=== PATIENT | male | born 1990 | race Caucasian/White ===

== ENCOUNTER 2023-03-04 13:04 | Outpatient (REF) | payer OTHER, SELFPAY ==
--- NOTE | 2023-03-04 14:19 | ECG_ITS ---
Test Reason : F33.2 Blood Pressure : / mmHG Vent. Rate : 125 BPM Atrial Rate : 125 BPM P-R Int : 156 ms QRS Dur : 098 ms QT Int : 306 ms P-R-T Axes : 036 023 034 degrees QTc Int : 441 ms Sinus tachycardia Otherwise normal ECG No previous ECGs available Referred By: Suleman Julien Electronically Signed By:Filiberto Richard
[2023-03-04 14:30] LABS: MANUAL DIFF FLAG NO
[2023-03-04 14:35] LABS: Basophils Absolute Auto 0.1 X10*3/uL (0.0-0.2); Eosinophils Absolute Auto 0.3 X10*3/uL (0.0-0.4); Eosinophils Percent Auto 2.5 % (0-4); Hematocrit 44.8 % (42.0-52.0); Hemoglobin 15.1 g/dl (14.0-18.0); Imm Gran Abs Auto 0.17 X10*3/uL (0.00-0.03); Imm Gran Pct Auto 1.6 % (0.0-0.4); Lymphocytes Absolute Auto 2.2 X10*3/uL (1.2-4.9); Lymphocytes Percent Auto 20.8 % (20-40); Mean Corpuscular HGB Conc 33.7 g/dl (31.0-36.0); Mean Corpuscular Hemoglobin 32.5 pg (27.0-33.0); Mean Corpuscular Volume 96.3 fL (80.0-98.0); Mean Platelet Volume 10.1 fL (9.4-12.4); Monocytes Absolute Auto 0.9 X10*3/uL (0.1-1.2); Monocytes Percent Auto 8.3 % (2-11); Neutrophils Percent Auto 65.8 % (45-73); Platelet Count 252 X10*3/uL (160-400); Red Blood Count 4.65 X10*6/uL (4.60-5.80); Red Cell Distribution Width 12.6 % (11.0-16.0); White Blood Count 10.7 X10*3/uL (4.8-10.8)
[2023-03-04 15:35] LABS: Alanine Aminotransferase 32 U/L (0-40); Albumin Level 4.7 g/dL (3.5-5.0); Alkaline Phosphatase 76 U/L (39-117); Anion Gap 15 (12-20); Aspartate Amino Transferase 19 U/L (5-37); Bilirubin Total 0.3 mg/dL (0.0-1.0); Blood Urea Nitrogen 11 mg/dL (9-16); Calcium 9.9 mg/dL (8.4-10.2); Carbon Dioxide 24 mmol/L (22-29); Chloride 105 mmol/L (96-108); Estimated Glomerular Filt Rate > 60; Glucose Random 95 mg/dL (60-115); Potassium 4.3 mmol/L (3.3-5.1); Sodium 140 mmol/L (135-145); Total Protein 7.7 g/dL (6.5-8.0)
[2023-03-04 15:53] LABS: TSH reflex Free T4 1.98 uIU/mL (0.32-4.0)
[2023-03-04 15:57] LABS: Vitamin B12 394 pg/mL (200-900)
[2023-03-04 16:49] LABS: Folate 3.7 ng/mL (> or = 4.0)
== END 2023-03-04 13:05 | disposition home or self-care (01) ==
LOC: HO.LAB 13:04
PROVIDERS: PCP Family Medicine; Referring Provider Clinical Nurse Specialist Psychiatric/Mental Health; Visit Provider Psychiatry & Neurology Psychiatry
DX: Z01.818 Encounter for other preprocedural examination (principal); F33.2 Major depressive disorder, recurrent severe without psychotic features; F90.9 Attention-deficit hyperactivity disorder, unspecified type; S69.91XA Unspecified injury of right wrist, hand and finger(s), initial encounter
CPT/HCPCS: 36415; 80053; 82607; 82746; 84443; 85025; 93005

== ENCOUNTER 2023-03-04 13:04 | Outpatient (AMB) | payer OTHER, SELFPAY ==
--- NOTE | 2023-03-05 00:20 | A.OFFPSYCH_ITS ---
Intake Intake Visit Reasons: Depression Allergies No Known Allergies Allergy (Verified 03/04/23 13:50) Medication List - Last Reconciled 03/06/23 by Servando Del Rosario MD brexpiprazole (Rexulti) 3 mg PO QAM dextroamphetamine-amphetamine 20 mg 1 tab PO QPM lisdexamfetamine (Vyvanse) 70 mg PO DAILY lorazepam 1 mg PO BID PRN nortriptyline 100 mg PO BEDTIME zolpidem 10 mg PO BEDTIME PRN HPI- Psychiatric Chief Complaint: Depression Intake Note: Referred for ECT consult by Suleman Julien nurse practitioner HPI Narrative: The patient's 8th 32-year-old male referred by Suleman Julien nurse practitioner who has a long history of severe depression reported psychotic episodes who feels increasingly hopeless helpless with thoughts that he would be better off . The patient has been not treated for depression off and on since adolescents he has been much worse for the past few years and especially since his divorce and feeling betrayed by his ex-. He is on social security disability and is living with his parents. He is significantly restricted his activities is socially isolated. Patient has felt worse since he and his 16-year-old daughter had some kind of falling out after the divorce since then his daughter has not been wanting to have significant contact with him. They have been quite close previously. The patient has had a number of medication trials and has been treated for recurrent depression with psychotic features and ADHD. He has had a number of setbacks over the years that contribute to his current state besides his divorce and feeling of betrayal. 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 The patient currently has been on combination of nortriptyline, Vyvanse to 130 mg with an Adderall 20 mg in late afternoon Rexulti 3 mg daily lorazepam 1 mg daily p.r.n.. He has had trials of citalopram 40 mg Lexapro 20 mg fluoxetine 60 mg Cymbalta 60 mg Abilify 5 mg Wellbutrin 300 mg Seroquel 50 mg Effexor XR 150 mg BuSpar 20 b.i.d. and auvelity which were ineffective or had side effects. Patient had a partial response to TMS. Has had chronic depression chronic thoughts that he would be better off but states he would act on this and feels committed to his daughter Past Psychiatric History: See above no psychiatric hospitalization Mental Status Exam Mental Status Exam Narrative: Patient cooperative has a rey Patient Appearance: Appropriate Patient Orientation: Person, Place, Time and Situation Level of Consciousness: Awake and Appropriate Patient Behavior: Appropriate Mood Description: Constricted, Depressed and Blunted Affect Description: Appropriate, Constricted and Depressed Patient Cognition Impaired: Yes Ability to Follow Directions: Good Speech Pattern: Clear Memory Description: Working Impaired Hallucinations: None Delusions: Not Present Thought Process: Intact and Goal Oriented Thought Content: positive for Goal Oriented, positive for Preoccupation, positive for Suicidal Ideation (Denies intent he is asking for help) and negative for Homicidal Ideation Depressive Symptoms: Increased Anxiety, Increased Irritability, Hopelessness, Increased Fatigue, Thoughts of /Suicide, Low Self Esteem, Loss of Energy and Difficulty Concentrating Judgement and Insight: Patient is asking for help denies active thoughts of self-harm Assessment and Plan Assessment & Plan (1) Depression, major, severe recurrence: Status: Acute Code(s): F33.2 - Major depressive disorder, recurrent severe without psychotic features (2) ADHD: Status: Acute Code(s): F90.9 - Attention-deficit hyperactivity disorder, unspecified type (3) Injury of right hand: Status: Acute Code(s): S69.91XA - Unspecified injury of right wrist, hand and finger(s), initial encounter Plan Patient certainly meets criteria for ECT severe depression elevated PHQ-9 medical issues right-handed Denzel cervical disc disease severe melancholic type depression limited interest in engagement with world. Would benefit from behavioral activation motivational interviewing and would need to engage in active depression rehabilitation process if ECT was effective at treating the biology and hopefully help in patient be more motivated less and I future orie nted. He denies active self-harm he is chronically suicidal at this point with thoughts that he might be better off but feels he is staying alive to be apparent to his daughter which is a major motivator for him. Risks benefits alternatives reviewed might benefit from a partial hospital type program post ECT unclear effect from high-dose stimulants and also if patient has chronic marijuana use is having an impact on his adjustment and behavior. Case reviewed with the in lon Julien nurse practitioner patient given literature handouts this point wishes to go forward check a CBC Chem profile EKG get medical evaluation pre ECT Orders: Orders Vitamin B12 and Folate 03/04/23 F33.2 - Major depressive disorder, recurrent severe without psychotic features, Z01.818 - Encounter for other preprocedural examination Comprehensive Met. Panel 03/04/23 F33.2 - Major depressive disorder, recurrent severe without psychotic features, Z01.818 - Encounter for other preprocedural examination TSH reflex Free T4 03/04/23 F33.2 - Major depressive disorder, recurrent severe without psychotic features, Z01.818 - Encounter for other preprocedural examination ECG 12 lead EKG 03/04/23 F33.2 - Major depressive disorder, recurrent severe without psychotic features, Z01.818 - Encounter for other preprocedural examination Complete Blood Count Auto Diff 03/04/23 F33.2 - Major depressive disorder, recurrent severe without psychotic features, Z01.818 - Encounter for other preprocedural examination Counseling and coordination of Care Details: I spent [] minutes reviewing the record, seeing the patient and documenting in the medical record. Counseling provided to the patient/caregiver as outlined below. Addressed patient/caregiver concerns regarding current medication regime including effective adherence. Addressed patient/caregiver concerns regarding diagnosis and prognosis including accuracy of diagnosis, prognosis over time, impact of diagnosis. Addressed patient/caregiver concerns regarding impact of recent stressors. 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 Was he is currently has a 16-year-old daughter and is on social security disability he does know his biological mother Substance History: History of alcoholism has been sober he is a regular user of medical marijuana Past history of opiate use was on Suboxone Trauma History: History of physical and emotional trauma Coding Level of Care Code New Pt Level 4 (93117) Diagnoses Depression, major, severe recurrence F33.2 ADHD F90.9 Injury of right hand S69.91XA
== END 2023-03-04 14:20 | disposition home or self-care (01) ==
LOC: HO.HOP 13:04
PROVIDERS: PCP Family Medicine; Referring Provider Clinical Nurse Specialist Psychiatric/Mental Health; Visit Provider Psychiatry & Neurology Psychiatry
DX: F33.2 Major depressive disorder, recurrent severe without psychotic features (principal); F90.9 Attention-deficit hyperactivity disorder, unspecified type; S69.91XA Unspecified injury of right wrist, hand and finger(s), initial encounter
CPT/HCPCS: 99204

== ENCOUNTER → 2023-03-04 14:19 | Outpatient (BNV) | payer OTHER, SELFPAY | PROVIDERS: PCP Family Medicine; Referring Provider Clinical Nurse Specialist Psychiatric/Mental Health; Visit Provider Internal Medicine Cardiovascular Disease | DX: R00.0 Tachycardia, unspecified (principal) | CPT/HCPCS: 93010 ==

== ENCOUNTER 2023-03-15 06:14 | Day surgery (SDC) | payer OTHER, SELFPAY ==
[2023-03-15] VITALS (8 sets, daily range): BP systolic 107–160; BP diastolic 65–97; PULSE 100–108; RESP 12–18; TEMP 36.1–36.6; O2SAT 97–99; BMI 33.4
--- NOTE | 2023-03-15 06:55 | P.CONAN_ITS ---
[facility] Active Problems Active Problems: All Active Problems (Updated 03/06/23 @ 17:34 by Servando Del Rosario MD) ADHD (Acute) Injury of right hand (Acute) Pre-op evaluation (Acute) Depression, major, severe recurrence (Acute) Past Medical History Medical History (Updated 03/06/23 @ 17:34 by Servando Del Rosario MD) ADHD Cervical radiculopathy at C7 Injury of right hand Family History Family history of problems with anesthesia: No Surgical History History of Problems with Anesthesia: No Social History Social History Patient Tobacco Use Status: Current everyday Tobacco user Tobacco use type: Cigarette Smoked in Last 30 Days: Yes Patient Interested in Nicotine Replacement: No Have you been hit, kicked, punched, or otherwise hurt by someone within the past year? If so, by whom?: No Are you DNR?: No Advance Directives: No Advance Directives Information Provided: Yes Recently lost weight without trying: No Poor oral hygiene: No Meds Allergies Allergy/AdvReac Type Severity Reaction Status Date / Time No Known Allergies Allergy Verified 03/04/23 13:50 Home Medications Medication Instructions Recorded Confirmed Last Taken Type brexpiprazole 3 mg tablet (Rexulti) 3 mg PO QAM 03/06/23 03/06/23 Unknown History dextroamphetamine-amphetamine 20 1 tab PO QPM 03/06/23 03/06/23 Unknown History mg tablet lisdexamfetamine 70 mg capsule 70 mg PO DAILY 03/06/23 03/06/23 Unknown History (Vyvanse) lorazepam 1 mg tablet 1 mg PO BID PRN 03/06/23 03/06/23 Unknown History nortriptyline 50 mg capsule 100 mg PO BEDTIME 03/06/23 03/06/23 Unknown History zolpidem 10 mg tablet 10 mg PO BEDTIME PRN 03/06/23 03/06/23 Unknown History Exam Exam Date and Time: March 15, 2023 0655 Height,Weight and Vital Signs: Height 5 ft 8 in Weight 99.79 kg Last Vital Signs Temp 97.0 F 03/15/23 06:31 Pulse 104 H 03/15/23 06:31 Resp 18 03/15/23 06:31 BP 123/79 03/15/23 06:31 Pulse Ox 97 03/15/23 06:31 O2 Del Method Room Air 03/15/23 06:31 Airway Mallampati Class: III (missing one, denies anything loose) TM Dist: >3cm Neck ROM: Full Heart: rrr Lungs: cta Assessment and Plan Assessment Anesthesia Assessment: Anesthesia Plan Discussed and Chart Reviewed Final Anesthetic Review Family History of Problems with Anesthesia: No History of Problems with Anesthesia: No NPO: Yes ASA Class: III Final Preanesthetic Review: No Changes in Pt Med Stat, Meds/Allgs Chart Reviewed and Consent Obtained/Reviewed Patient Risk: Intermediate Procedure Risk: Intermediate Anesthetic Plan Anesthetic Plan: GA Disposition: Standard PACU
--- NOTE | 2023-03-15 07:45 | MHC.SHP ---
Pre-Procedural Eval Section A Date of Service: 03/15/23 The patient is an INPATIENT: No Changes since office visit: Yes Patient answered all questions; No Cold of Flu in the past 2 weeks, No New Medical Problems and No Changes in Medication The History & Physical has been completed within 30 days and I have reviewed it.: Yes Section B Chief Complaint: Major depressive disorder, recurrent, severe with Allergies: Allergies Allergy/AdvReac Type Severity Reaction Status Date / Time No Known Allergies Allergy Verified 03/04/23 13:50 Plan I have reviewed the history and physical and performed a pertinent physical examination on my patient. No changes have occurred unless specified. Time Spent With Patient Time: Total time managing care of this patient today ____ minutes.
--- NOTE | 2023-03-15 17:46 | HO.ECTPROC ---
ECT Procedure Note Diagnosis/Treatment Date of Service: 03/15/23 Diagnosis: Major Depressive Disorder Current Treatment Number: 1 Treatment: Series Interval Clinical Notes: See initial eval for full information patient able to give informed consent for initially ECT medical evaluation reviewed no new medical complaints by the patient today Time: Total time managing care of this patient today ____ minutes. ECT Settings Device: THYMATRON DGx Electrode Placement: Right Unilateral Program/Pulse Width: 0.50 Energy Percent: 100 Seizure Duration By EEG (in seconds): 17 Medications Administration General Anesthetic: Etomidate (16) Muscle Relaxant: Succinylcholine (100) Ancillary Medications Analgesics: Torodol - Pre ECT Anti-emetics: Zofran - Pre ECT Miscillaneous Medications: Propofol (30) Airway Management Airway Management: Bag Mask Ventilation Treatment Recommendations Electrode Placement: Bifrontal Notes: Consider change to bifrontal increased succinylcholine 120 mg lower etomidate a to 14 mg as tolerate Pt Tolerated Procedure w/o Issue: Yes
== END 2023-03-15 09:25 | disposition home or self-care (01) ==
PROVIDERS: PCP Family Medicine; Visit Provider Psychiatry & Neurology Psychiatry
PROC: (CPT 90870; principal; 2023-03-15 08:00)
DX: F33.3 Major depressive disorder, recurrent, severe with psychotic symptoms (principal); F90.2 Attention-deficit hyperactivity disorder, combined type; E66.9 Obesity, unspecified; Z79.899 Other long term (current) drug therapy; F17.210 Nicotine dependence, cigarettes, uncomplicated; F41.1 Generalized anxiety disorder
CPT/HCPCS: 90870; J0330; J1885; J2405

== ENCOUNTER → 2023-03-15 06:14 | Outpatient (BNV) | payer OTHER, SELFPAY | PROVIDERS: PCP Family Medicine; Visit Provider Psychiatry & Neurology Psychiatry | DX: F33.3 Major depressive disorder, recurrent, severe with psychotic symptoms (principal) | CPT/HCPCS: 90870 ==

== ENCOUNTER 2023-03-18 06:00 | Day surgery (SDC) | payer OTHER, SELFPAY ==
[2023-03-18] VITALS (8 sets, daily range): BP systolic 116–168; BP diastolic 82–99; PULSE 93–116; RESP 14–20; TEMP 36.1–36.2; O2SAT 92–97; BMI 33.4
--- NOTE | 2023-03-18 06:41 | HO.ANESPROP2 ---
[facility] Active Problems Active Problems: All Active Problems (Updated 03/06/23 @ 17:34 by Servando Del Rosario MD) ADHD (Acute) Injury of right hand (Acute) Pre-op evaluation (Acute) Depression, major, severe recurrence (Acute) Past Medical History Medical History (Updated 03/06/23 @ 17:34 by Servando Del Rosario MD) ADHD Cervical radiculopathy at C7 Injury of right hand Family History Family history of problems with anesthesia: No Surgical History History of Problems with Anesthesia: No Social History Social History Patient Tobacco Use Status: Current everyday Tobacco user Tobacco use type: Cigarette Advance Directives: No Advance Directives Information Provided: Yes Meds Allergies Allergy/AdvReac Type Severity Reaction Status Date / Time No Known Allergies Allergy Verified 03/04/23 13:50 Home Medications Medication Instructions Recorded Confirmed Last Taken Type brexpiprazole 3 mg tablet (Rexulti) 3 mg PO QAM 03/06/23 03/06/23 Unknown History dextroamphetamine-amphetamine 20 1 tab PO QPM 03/06/23 03/06/23 Unknown History mg tablet lisdexamfetamine 70 mg capsule 70 mg PO DAILY 03/06/23 03/06/23 Unknown History (Vyvanse) lorazepam 1 mg tablet 1 mg PO BID PRN 03/06/23 03/06/23 Unknown History nortriptyline 50 mg capsule 100 mg PO BEDTIME 03/06/23 03/06/23 Unknown History zolpidem 10 mg tablet 10 mg PO BEDTIME PRN 03/06/23 03/06/23 Unknown History Exam Exam Date and Time: March 18, 2023 0641 Height,Weight and Vital Signs: Height 5 ft 8 in Weight 99.79 kg Last Vital Signs Temp 97 F 03/18/23 06:17 Pulse 95 03/18/23 06:17 Resp 16 03/18/23 06:17 BP 137/98 H 03/18/23 06:17 Pulse Ox 97 03/18/23 06:17 O2 Del Method Room Air 03/18/23 06:17 Airway Mallampati Class: II TM Dist: >3cm Neck ROM: Full Heart: rrr Lungs: cta Assessment and Plan Assessment Anesthesia Assessment: Anesthesia Plan Discussed and Chart Reviewed Final Anesthetic Review Family History of Problems with Anesthesia: No History of Problems with Anesthesia: No NPO: Yes ASA Class: III Final Preanesthetic Review: No Changes in Pt Med Stat, Meds/Allgs Chart Reviewed and Consent Obtained/Reviewed Patient Risk: Intermediate Procedure Risk: Intermediate Anesthetic Plan Anesthetic Plan: GA Disposition: Standard PACU
--- NOTE | 2023-03-18 07:16 | MHC.SHP ---
Pre-Procedural Eval Section A Date of Service: 03/18/23 The patient is an INPATIENT: No Changes since office visit: Yes Patient answered all questions; No Cold of Flu in the past 2 weeks, No New Medical Problems and No Changes in Medication The History & Physical has been completed within 30 days and I have reviewed it.: Yes Section B Chief Complaint: Major depressive disorder, recurrent, severe with Allergies: Allergies Allergy/AdvReac Type Severity Reaction Status Date / Time No Known Allergies Allergy Verified 03/04/23 13:50 Plan I have reviewed the history and physical and performed a pertinent physical examination on my patient. No changes have occurred unless specified. Time Spent With Patient Time: Total time managing care of this patient today ____ minutes.
--- NOTE | 2023-03-18 07:17 | HO.ECTPROC ---
ECT Procedure Note Diagnosis/Treatment Date of Service: 03/18/23 Diagnosis: Major Depressive Disorder Current Treatment Number: 2 Treatment: Series Interval Clinical Notes: tolerated first tx engaged alert Time: Total time managing care of this patient today ____ minutes. ECT Settings Device: THYMATRON DGx Electrode Placement: Right Unilateral Program/Pulse Width: 0.50 Energy Percent: 100 Seizure Duration By EEG (in seconds): 55 Medications Administration General Anesthetic: Etomidate (16) Muscle Relaxant: Succinylcholine (120) Ancillary Medications Analgesics: Torodol - Pre ECT Anti-emetics: Zofran - Pre ECT Miscillaneous Medications: Propofol (30) Airway Management Airway Management: Bag Mask Ventilation Treatment Recommendations Electrode Placement: Right Unilateral Program/Pulse Width: 0.50 Pt Tolerated Procedure w/o Issue: Yes
[2023-03-18] MEDS: ondansetron HCL 4 MG/2 ML VIAL IVPUSH (08:50)
== END 2023-03-18 08:57 | disposition home or self-care (01) ==
PROVIDERS: PCP Family Medicine; Visit Provider Psychiatry & Neurology Psychiatry
PROC: (CPT 90870; principal; 2023-03-18 07:30)
DX: F33.2 Major depressive disorder, recurrent severe without psychotic features (principal); F41.1 Generalized anxiety disorder; E66.9 Obesity, unspecified; Z79.899 Other long term (current) drug therapy; F17.210 Nicotine dependence, cigarettes, uncomplicated
CPT/HCPCS: 90870; J0330; J1885; J2405

== ENCOUNTER → 2023-03-18 06:00 | Outpatient (BNV) | payer OTHER, SELFPAY | PROVIDERS: PCP Family Medicine; Visit Provider Psychiatry & Neurology Psychiatry | DX: F33.3 Major depressive disorder, recurrent, severe with psychotic symptoms (principal) | CPT/HCPCS: 90870 ==

== ENCOUNTER 2023-03-20 06:05 | Day surgery (SDC) | payer OTHER, SELFPAY ==
[2023-03-20] VITALS (7 sets, daily range): BP systolic 125–134; BP diastolic 82–92; PULSE 93–107; RESP 16–23; TEMP 36.2; O2SAT 91–99; BMI 30.4
--- NOTE | 2023-03-20 06:37 | HO.ANESPROP2 ---
[facility] Active Problems Active Problems: All Active Problems (Updated 03/06/23 @ 17:34 by Servando Del Rosario MD) ADHD (Acute) Injury of right hand (Acute) Pre-op evaluation (Acute) Depression, major, severe recurrence (Acute) Past Medical History Medical History (Updated 03/06/23 @ 17:34 by Servando Del Rosario MD) ADHD Cervical radiculopathy at C7 Injury of right hand Family History Family history of problems with anesthesia: No Surgical History History of Problems with Anesthesia: No Social History Social History Patient Tobacco Use Status: Current everyday Tobacco user Tobacco use type: Cigarette Advance Directives: No Advance Directives Information Provided: Yes Meds Allergies Allergy/AdvReac Type Severity Reaction Status Date / Time No Known Allergies Allergy Verified 03/04/23 13:50 Active Medications: Current Medications Lactated Ringer's (Lr) 1,000 mls @ 50 mls/hr IVCONT .Q20H FANNY Home Medications Medication Instructions Recorded Confirmed Last Taken Type brexpiprazole 3 mg tablet (Rexulti) 3 mg PO QAM 03/06/23 03/06/23 Unknown History dextroamphetamine-amphetamine 20 1 tab PO QPM 03/06/23 03/06/23 Unknown History mg tablet lisdexamfetamine 70 mg capsule 70 mg PO DAILY 03/06/23 03/06/23 Unknown History (Vyvanse) lorazepam 1 mg tablet 1 mg PO BID PRN 03/06/23 03/06/23 Unknown History nortriptyline 50 mg capsule 100 mg PO BEDTIME 03/06/23 03/06/23 Unknown History zolpidem 10 mg tablet 10 mg PO BEDTIME PRN 03/06/23 03/06/23 Unknown History Exam Exam Date and Time: March 20, 2023 0637 Height,Weight and Vital Signs: Height 5 ft 8 in Weight 90.718 kg Last Vital Signs Temp 97.2 F 03/20/23 06:20 Pulse 93 03/20/23 06:20 Resp 16 03/20/23 06:20 BP 128/90 H 03/20/23 06:20 Pulse Ox 97 03/20/23 06:20 O2 Del Method Room Air 03/20/23 06:20 Airway Mallampati Class: II TM Dist: >3cm Neck ROM: Full Heart: rrr Lungs: cta Assessment and Plan Assessment Anesthesia Assessment: Anesthesia Plan Discussed and Chart Reviewed Final Anesthetic Review Family History of Problems with Anesthesia: No History of Problems with Anesthesia: No ASA Class: III Final Preanesthetic Review: No Changes in Pt Med Stat, Meds/Allgs Chart Reviewed and Consent Obtained/Reviewed Patient Risk: Intermediate Procedure Risk: Intermediate Anesthetic Plan Anesthetic Plan: GA Disposition: Standard PACU
--- NOTE | 2023-03-20 07:02 | MHC.SHP ---
Pre-Procedural Eval Section A Date of Service: 03/20/23 The patient is an INPATIENT: No Changes since office visit: No Cold of Flu in the past 2 weeks, No New Medical Problems, No Changes in Medication and No Patient answered all questions The History & Physical has been completed within 30 days and I have reviewed it.: Yes Section B Chief Complaint: Major depressive disorder, recurrent, severe with Allergies: Allergies Allergy/AdvReac Type Severity Reaction Status Date / Time No Known Allergies Allergy Verified 03/04/23 13:50 Plan I have reviewed the history and physical and performed a pertinent physical examination on my patient. No changes have occurred unless specified. Time Spent With Patient Time: Total time managing care of this patient today ____ minutes.
--- NOTE | 2023-03-20 07:21 | HO.ECTPROC ---
ECT Procedure Note Diagnosis/Treatment Date of Service: 03/20/23 Diagnosis: Major Depressive Disorder Previous ECT Date: 03/18/23 Current Treatment Number: 3 Treatment: Series Interval Clinical Notes: The patient reported improvement of his level of energy but still dysphoric. He reported headaches and some muscle pain after the previous procedure. Time: Total time managing care of this patient today _30___ minutes. ECT Settings Device: THYMATRON DGx Electrode Placement: Right Unilateral Program/Pulse Width: 0.50 Energy Percent: 100 Seizure Duration By EEG (in seconds): 54 By Motor Observation (in seconds): 31 Medications Administration General Anesthetic: Etomidate (16) Muscle Relaxant: Succinylcholine (120) Ancillary Medications Analgesics: Torodol - Pre ECT (30 mg (double dose)) Anti-emetics: Zofran - Pre ECT Miscillaneous Medications: Propofol Airway Management Airway Management: Bag Mask Ventilation Treatment Recommendations No Changes Recommended: No change Pt Tolerated Procedure w/o Issue: Yes
[2023-03-20] MEDS: Acetaminophen 325 MG TABLET 650 MG PO (08:14)
== END 2023-03-20 08:50 | disposition home or self-care (01) ==
PROVIDERS: PCP Family Medicine; Visit Provider Psychiatry & Neurology Psychiatry
PROC: (CPT 90870; principal; 2023-03-20 07:30)
DX: F33.2 Major depressive disorder, recurrent severe without psychotic features (principal); F90.9 Attention-deficit hyperactivity disorder, unspecified type; F17.210 Nicotine dependence, cigarettes, uncomplicated; Z79.899 Other long term (current) drug therapy
CPT/HCPCS: 90870; J0330; J1885; J2405

== ENCOUNTER → 2023-03-20 06:05 | Outpatient (BNV) | payer OTHER, SELFPAY | PROVIDERS: PCP Family Medicine; Visit Provider Psychiatry & Neurology Psychiatry | DX: F33.3 Major depressive disorder, recurrent, severe with psychotic symptoms (principal) | CPT/HCPCS: 90870 ==

== ENCOUNTER 2023-03-22 06:08 | Day surgery (SDC) | payer OTHER, SELFPAY ==
[2023-03-22] VITALS (8 sets, daily range): BP systolic 117–134; BP diastolic 82–95; PULSE 97–106; RESP 14–20; TEMP 36.1–36.7; O2SAT 94–98; BMI 30.4
--- NOTE | 2023-03-22 06:44 | P.CONAN_ITS ---
[facility] Active Problems Active Problems: All Active Problems (Updated 03/06/23 @ 17:34 by Servando Del Rosario MD) ADHD (Acute) Injury of right hand (Acute) Pre-op evaluation (Acute) Depression, major, severe recurrence (Acute) Past Medical History Medical History (Updated 03/06/23 @ 17:34 by Servando Del Rosario MD) ADHD Cervical radiculopathy at C7 Injury of right hand Family History Family history of problems with anesthesia: No Surgical History History of Problems with Anesthesia: No Social History Social History Patient Tobacco Use Status: Current everyday Tobacco user Tobacco use type: Cigarette Advance Directives: No Advance Directives Information Provided: Yes Meds Allergies Allergy/AdvReac Type Severity Reaction Status Date / Time No Known Allergies Allergy Verified 03/04/23 13:50 Active Medications: Current Medications Lactated Ringer's (Lr) 1,000 mls @ 50 mls/hr IVCONT .Q20H FANNY Home Medications Medication Instructions Recorded Confirmed Last Taken Type brexpiprazole 3 mg tablet (Rexulti) 3 mg PO QAM 03/06/23 03/06/23 Unknown History dextroamphetamine-amphetamine 20 1 tab PO QPM 03/06/23 03/06/23 Unknown History mg tablet lisdexamfetamine 70 mg capsule 70 mg PO DAILY 03/06/23 03/06/23 Unknown History (Vyvanse) lorazepam 1 mg tablet 1 mg PO BID PRN 03/06/23 03/06/23 Unknown History nortriptyline 50 mg capsule 100 mg PO BEDTIME 03/06/23 03/06/23 Unknown History zolpidem 10 mg tablet 10 mg PO BEDTIME PRN 03/06/23 03/06/23 Unknown History Exam Exam Date and Time: March 22, 2023 0644 Height,Weight and Vital Signs: Height 5 ft 8 in Weight 90.718 kg Last Vital Signs Temp 97.7 F 03/22/23 06:21 Pulse 97 03/22/23 06:21 Resp 16 03/22/23 06:21 BP 117/82 03/22/23 06:21 Pulse Ox 95 03/22/23 06:21 O2 Del Method Room Air 03/22/23 06:21 Airway Mallampati Class: II TM Dist: >3cm Neck ROM: Full Heart: rrr Lungs: cta Assessment and Plan Assessment Anesthesia Assessment: Anesthesia Plan Discussed and Chart Reviewed Final Anesthetic Review Family History of Problems with Anesthesia: No History of Problems with Anesthesia: No NPO: Yes ASA Class: III Final Preanesthetic Review: No Changes in Pt Med Stat, Meds/Allgs Chart Reviewed and Consent Obtained/Reviewed Patient Risk: Intermediate Procedure Risk: Intermediate Anesthetic Plan Anesthetic Plan: GA Disposition: Standard PACU
--- NOTE | 2023-03-22 07:10 | MHC.SHP ---
Pre-Procedural Eval Section A Date of Service: 03/22/23 The patient is an INPATIENT: No Changes since office visit: No Cold of Flu in the past 2 weeks, No New Medical Problems, No Changes in Medication and No Patient answered all questions The History & Physical has been completed within 30 days and I have reviewed it.: Yes Section B Chief Complaint: Major depressive disorder, recurrent, severe with Allergies: Allergies Allergy/AdvReac Type Severity Reaction Status Date / Time No Known Allergies Allergy Verified 03/04/23 13:50 Plan I have reviewed the history and physical and performed a pertinent physical examination on my patient. No changes have occurred unless specified. Time Spent With Patient Time: Total time managing care of this patient today ____ minutes.
--- NOTE | 2023-03-22 07:10 | HO.ECTPROC ---
ECT Procedure Note Diagnosis/Treatment Date of Service: 03/22/23 Diagnosis: Major Depressive Disorder Previous ECT Date: 03/18/23 Current Treatment Number: 4 Treatment: Series Interval Clinical Notes: The patient reported ? some improvement no c/o side effects Time: Total time managing care of this patient today ____ minutes. ECT Settings Device: THYMATRON DGx Electrode Placement: Bifrontal Program/Pulse Width: 0.50 Energy Percent: 100 Medications Administration General Anesthetic: Etomidate (16) Muscle Relaxant: Succinylcholine (120) Ancillary Medications Analgesics: Torodol - Pre ECT (30 mg (double dose)) Anti-emetics: Zofran - Pre ECT Miscillaneous Medications: Propofol Airway Management Airway Management: Bag Mask Ventilation Treatment Recommendations No Changes Recommended: No change Notes: change to bf no clear improvement to this point Pt Tolerated Procedure w/o Issue: Yes
== END 2023-03-22 08:40 | disposition home or self-care (01) ==
PROVIDERS: PCP Family Medicine; Visit Provider Psychiatry & Neurology Psychiatry
PROC: (CPT 90870; principal; 2023-03-22 07:30)
DX: F33.2 Major depressive disorder, recurrent severe without psychotic features (principal); F90.9 Attention-deficit hyperactivity disorder, unspecified type; Z79.899 Other long term (current) drug therapy; F17.210 Nicotine dependence, cigarettes, uncomplicated
CPT/HCPCS: 90870; J0330; J1885; J2405

== ENCOUNTER → 2023-03-22 06:08 | Outpatient (BNV) | payer OTHER, SELFPAY | PROVIDERS: PCP Family Medicine; Visit Provider Psychiatry & Neurology Psychiatry | DX: F33.3 Major depressive disorder, recurrent, severe with psychotic symptoms (principal) | CPT/HCPCS: 90870 ==

== ENCOUNTER 2023-03-25 06:20 | Day surgery (SDC) | payer OTHER, SELFPAY ==
[2023-03-25 06:34] VITALS: BP 139/93; PULSE 101; RESP 20; TEMP 36.1; O2SAT 96; BMI 30.4
--- NOTE | 2023-03-25 07:02 | MHC.SHP ---
Pre-Procedural Eval Section A Date of Service: 03/25/23 The patient is an INPATIENT: No Changes since office visit: No Cold of Flu in the past 2 weeks, No New Medical Problems, No Changes in Medication and No Patient answered all questions The History & Physical has been completed within 30 days and I have reviewed it.: Yes Section B Chief Complaint: Major depressive disorder, recurrent, severe with Allergies: Allergies Allergy/AdvReac Type Severity Reaction Status Date / Time No Known Allergies Allergy Verified 03/04/23 13:50 Plan I have reviewed the history and physical and performed a pertinent physical examination on my patient. No changes have occurred unless specified. Time Spent With Patient Time: Total time managing care of this patient today ____ minutes.
--- NOTE | 2023-03-25 07:04 | P.CONAN_ITS ---
[facility] Active Problems Active Problems: All Active Problems (Updated 03/06/23 @ 17:34 by Servando Del Rosario MD) ADHD (Acute) Injury of right hand (Acute) Pre-op evaluation (Acute) Depression, major, severe recurrence (Acute) Past Medical History Medical History ADHD Cervical radiculopathy at C7 Injury of right hand Family History Family history of problems with anesthesia: No Surgical History History of Problems with Anesthesia: No Social History Social History Patient Tobacco Use Status: Current everyday Tobacco user Tobacco use type: Cigarette Advance Directives: No Advance Directives Information Provided: Yes Meds Allergies Allergy/AdvReac Type Severity Reaction Status Date / Time No Known Allergies Allergy Verified 03/04/23 13:50 Home Medications Medication Instructions Recorded Confirmed Last Taken Type brexpiprazole 3 mg tablet (Rexulti) 3 mg PO QAM 03/06/23 03/06/23 Unknown History dextroamphetamine-amphetamine 20 1 tab PO QPM 03/06/23 03/06/23 Unknown History mg tablet lisdexamfetamine 70 mg capsule 70 mg PO DAILY 03/06/23 03/06/23 Unknown History (Vyvanse) lorazepam 1 mg tablet 1 mg PO BID PRN 03/06/23 03/06/23 Unknown History nortriptyline 50 mg capsule 100 mg PO BEDTIME 03/06/23 03/06/23 Unknown History zolpidem 10 mg tablet 10 mg PO BEDTIME PRN 03/06/23 03/06/23 Unknown History Exam Exam Date and Time: March 25, 2023 0704 Height,Weight and Vital Signs: Height 5 ft 8 in Weight 90.718 kg Last Vital Signs Temp 96.9 F 03/25/23 06:34 Pulse 101 H 03/25/23 06:34 Resp 20 03/25/23 06:34 BP 139/93 H 03/25/23 06:34 Pulse Ox 96 03/25/23 06:34 O2 Del Method Room Air 03/25/23 06:34 Airway Mallampati Class: III (full rey ) TM Dist: >3cm Neck ROM: Full Loose/Missing/Broken Teeth: No Heart: RRR Lungs: CTA Assessment and Plan Assessment Anesthesia Assessment: Anesthesia Plan Discussed and Chart Reviewed Final Anesthetic Review Family History of Problems with Anesthesia: No History of Problems with Anesthesia: No NPO: Yes ASA Class: II Final Preanesthetic Review: Meds/Allgs Chart Reviewed, Consent Obtained/Reviewed and Anes Risks/Benef Reviewed Patient Risk: Low Procedure Risk: Intermediate Anesthetic Plan Anesthetic Plan: GA Disposition: Standard PACU
--- NOTE | 2023-03-25 07:21 | HO.ECTPROC ---
ECT Procedure Note Diagnosis/Treatment Date of Service: 03/25/23 Diagnosis: Major Depressive Disorder Previous ECT Date: 03/22/23 Current Treatment Number: 5 Treatment: Series Interval Clinical Notes: The patient reported mild improvement of his level of energy, he denied side effects with the previous ECT. Time: Total time managing care of this patient today ___30_ minutes. ECT Settings Device: THYMATRON DGx Electrode Placement: Bifrontal Program/Pulse Width: 0.50 Energy Percent: 100 Seizure Duration By EEG (in seconds): 83 By Motor Observation (in seconds): 10 Medications Administration General Anesthetic: Etomidate (18) Muscle Relaxant: Succinylcholine (120) Ancillary Medications Analgesics: Torodol - Pre ECT Anti-emetics: Zofran - Pre ECT Miscillaneous Medications: Propofol (30) Airway Management Airway Management: Bag Mask Ventilation Treatment Recommendations No Changes Recommended: No change Pt Tolerated Procedure w/o Issue: Yes
[2023-03-25 07:26] VITALS: BP 213/93; PULSE 98; RESP 18; TEMP 36.2; O2SAT 96
[2023-03-25 07:31] VITALS: BP 146/92; PULSE 98; RESP 18; O2SAT 96
[2023-03-25 07:37] VITALS: BP 128/69; PULSE 104; RESP 20; O2SAT 95
[2023-03-25 07:42] VITALS: BP 117/73; PULSE 106; RESP 18; O2SAT 97
[2023-03-25 07:49] VITALS: BP 115/72; PULSE 100; RESP 18; TEMP 36.6; O2SAT 100
== END 2023-03-25 09:00 | disposition home or self-care (01) ==
LOC: HO.SSS 06:20
PROVIDERS: PCP Family Medicine; Visit Provider Psychiatry & Neurology Psychiatry
PROC: (CPT 90870; principal; 2023-03-25 07:30)
DX: F33.2 Major depressive disorder, recurrent severe without psychotic features (principal); F90.9 Attention-deficit hyperactivity disorder, unspecified type; Z79.899 Other long term (current) drug therapy; F17.210 Nicotine dependence, cigarettes, uncomplicated
CPT/HCPCS: 90870; J0330; J1885; J2405

== ENCOUNTER → 2023-03-25 06:20 | Outpatient (BNV) | payer OTHER, SELFPAY | PROVIDERS: PCP Family Medicine; Visit Provider Psychiatry & Neurology Psychiatry | DX: F33.3 Major depressive disorder, recurrent, severe with psychotic symptoms (principal) | CPT/HCPCS: 90870 ==

== ENCOUNTER 2023-03-27 06:06 | Day surgery (SDC) | payer OTHER, SELFPAY ==
[2023-03-27 06:38] VITALS: BP 128/69; PULSE 107; RESP 16; TEMP 36; O2SAT 96; BMI 33.4
--- NOTE | 2023-03-27 07:19 | HO.ANESPROP2 ---
HPI - Anesthesia Eval Consult details Narrative: Major Depressive Disorder [facility] Active Problems Active Problems: All Active Problems (Updated 03/06/23 @ 17:34 by Servando Del Rosario MD) ADHD (Acute) Injury of right hand (Acute) Pre-op evaluation (Acute) Depression, major, severe recurrence (Acute) Past Medical History Medical History ADHD Cervical radiculopathy at C7 Injury of right hand Family History Family history of problems with anesthesia: No Surgical History History of Problems with Anesthesia: No Social History Social History Patient Tobacco Use Status: Current everyday Tobacco user Tobacco use type: Cigarette Advance Directives: No Advance Directives Information Provided: Yes Meds Allergies Allergy/AdvReac Type Severity Reaction Status Date / Time No Known Allergies Allergy Verified 03/04/23 13:50 Home Medications Medication Instructions Recorded Confirmed Last Taken Type brexpiprazole 3 mg tablet (Rexulti) 3 mg PO QAM 03/06/23 03/06/23 Unknown History dextroamphetamine-amphetamine 20 1 tab PO QPM 03/06/23 03/06/23 Unknown History mg tablet lisdexamfetamine 70 mg capsule 70 mg PO DAILY 03/06/23 03/06/23 Unknown History (Vsweta) lorazepam 1 mg tablet 1 mg PO BID PRN 03/06/23 03/06/23 Unknown History nortriptyline 50 mg capsule 100 mg PO BEDTIME 03/06/23 03/06/23 Unknown History zolpidem 10 mg tablet 10 mg PO BEDTIME PRN 03/06/23 03/06/23 Unknown History Exam Exam Date and Time: March 27, [id number] Height,Weight and Vital Signs: Height 5 ft 8 in Weight 99.79 kg Last Vital Signs Temp 96.8 F 03/27/23 06:38 Pulse 107 H 03/27/23 06:38 Resp 16 03/27/23 06:38 BP 128/69 03/27/23 06:38 Pulse Ox 96 03/27/23 06:38 O2 Del Method Room Air 03/27/23 06:38 Airway Mallampati Class: II TM Dist: >3cm Neck ROM: Full Loose/Missing/Broken Teeth: No Heart: [id number] Lungs: cta b/l Assessment and Plan Assessment Anesthesia Assessment: Anesthesia Plan Discussed and Chart Reviewed Final Anesthetic Review Family History of Problems with Anesthesia: No History of Problems with Anesthesia: No NPO: Yes ASA Class: III Final Preanesthetic Review: No Changes in Pt Med Stat, Meds/Allgs Chart Reviewed, Consent Obtained/Reviewed and Anes Risks/Benef Reviewed Patient Risk: Intermediate Procedure Risk: Intermediate Assessment/Block/Sedation in SS: Assess/Block/Sedation-SS Anesthetic Plan Anesthetic Plan: GA and Agree w/ Assess. and Plan Disposition: Standard PACU
--- NOTE | 2023-03-27 07:25 | MHC.SHP ---
Pre-Procedural Eval Section A Date of Service: 03/27/23 The patient is an INPATIENT: No Changes since office visit: No Cold of Flu in the past 2 weeks, No New Medical Problems, No Changes in Medication and No Patient answered all questions The History & Physical has been completed within 30 days and I have reviewed it.: Yes Section B Chief Complaint: Major depressive disorder, recurrent, severe with Allergies: Allergies Allergy/AdvReac Type Severity Reaction Status Date / Time No Known Allergies Allergy Verified 03/04/23 13:50 Plan I have reviewed the history and physical and performed a pertinent physical examination on my patient. No changes have occurred unless specified. Time Spent With Patient Time: Total time managing care of this patient today ____ minutes.
--- NOTE | 2023-03-27 07:25 | HO.ECTPROC ---
ECT Procedure Note Diagnosis/Treatment Date of Service: 03/27/23 Diagnosis: Major Depressive Disorder Previous ECT Date: 03/22/23 Current Treatment Number: 6 Treatment: Series Interval Clinical Notes: Patient shows some improvement in mood and energy no complaints of side effects. Time: Total time managing care of this patient today ____ minutes. ECT Settings Device: THYMATRON DGx Electrode Placement: Bifrontal Program/Pulse Width: 0.50 Energy Percent: 80 Seizure Duration By EEG (in seconds): 52 Medications Administration General Anesthetic: Etomidate (18) Muscle Relaxant: Succinylcholine (140) Ancillary Medications Analgesics: Torodol - Pre ECT Anti-emetics: Zofran - Pre ECT Miscillaneous Medications: Propofol (30) Airway Management Airway Management: LMA Treatment Recommendations No Changes Recommended: No change Notes: Continue treatment Pt Tolerated Procedure w/o Issue: Yes
[2023-03-27 07:51] VITALS: BP 134/82; PULSE 116; RESP 20; TEMP 36.1; O2SAT 98
[2023-03-27 07:56] VITALS: BP 131/93; PULSE 112; RESP 16; O2SAT 93
[2023-03-27 08:01] VITALS: BP 134/98; PULSE 101; RESP 18; O2SAT 92
[2023-03-27 08:06] VITALS: BP 119/80; PULSE 93; RESP 18; O2SAT 95
[2023-03-27 08:14] VITALS: BP 134/98; PULSE 101; RESP 16; O2SAT 99
[2023-03-27] MEDS: Acetaminophen 325 MG TABLET 650 MG PO (08:41)
== END 2023-03-27 09:15 | disposition home or self-care (01) ==
PROVIDERS: PCP Family Medicine; Visit Provider Psychiatry & Neurology Psychiatry
PROC: (CPT 90870; principal; 2023-03-27 07:30)
DX: F33.2 Major depressive disorder, recurrent severe without psychotic features (principal); F90.9 Attention-deficit hyperactivity disorder, unspecified type; Z79.899 Other long term (current) drug therapy; F12.90 Cannabis use, unspecified, uncomplicated; F17.210 Nicotine dependence, cigarettes, uncomplicated; F10.21 Alcohol dependence, in remission; F11.11 Opioid abuse, in remission
CPT/HCPCS: 90870; J0330; J1885; J2405

== ENCOUNTER → 2023-03-27 06:06 | Outpatient (BNV) | payer OTHER, SELFPAY | PROVIDERS: PCP Family Medicine; Visit Provider Psychiatry & Neurology Psychiatry | DX: F33.3 Major depressive disorder, recurrent, severe with psychotic symptoms (principal) | CPT/HCPCS: 90870 ==

== ENCOUNTER 2023-03-29 06:07 | Day surgery (SDC) | payer OTHER, SELFPAY ==
[2023-03-29] VITALS (8 sets, daily range): BP systolic 104–139; BP diastolic 70–96; PULSE 86–98; RESP 12–17; TEMP 36.6–36.9; O2SAT 93–99; BMI 33.4
--- NOTE | 2023-03-29 07:49 | MHC.SHP ---
Pre-Procedural Eval Section A Date of Service: 03/29/23 The patient is an INPATIENT: No Changes since office visit: No Cold of Flu in the past 2 weeks, No New Medical Problems, No Changes in Medication and No Patient answered all questions The History & Physical has been completed within 30 days and I have reviewed it.: Yes Section B Chief Complaint: Major depressive disorder, recurrent, severe with Allergies: Allergies Allergy/AdvReac Type Severity Reaction Status Date / Time No Known Allergies Allergy Verified 03/04/23 13:50 Plan I have reviewed the history and physical and performed a pertinent physical examination on my patient. No changes have occurred unless specified. Time Spent With Patient Time: Total time managing care of this patient today ____ minutes.
--- NOTE | 2023-03-29 08:18 | HO.ECTPROC ---
ECT Procedure Note Diagnosis/Treatment Date of Service: 03/29/23 Diagnosis: Major Depressive Disorder Previous ECT Date: 03/27/23 Current Treatment Number: 7 Treatment: Series Interval Clinical Notes: ? some improvement Time: Total time managing care of this patient today ____ minutes. ECT Settings Device: THYMATRON DGx Electrode Placement: Bifrontal Program/Pulse Width: 0.25 Energy Percent: 100 Seizure Duration By EEG (in seconds): 14 Medications Administration General Anesthetic: Etomidate (18 plus 10) and Propofol (50 plus 30) Muscle Relaxant: Succinylcholine (140 plus 40) Ancillary Medications Analgesics: Torodol - Pre ECT Anti-emetics: Zofran - Pre ECT Miscillaneous Medications: Midazolam (2 mg) Airway Management Airway Management: LMA Treatment Recommendations Notes: anesthesia recommends 20 mg 160 suc plus 5-10 kizzy some vague awareness lma used Pt Tolerated Procedure w/o Issue: No
--- NOTE | 2023-03-29 08:19 | P.CONAN_ITS ---
[facility] Active Problems Active Problems: All Active Problems (Updated 03/06/23 @ 17:34 by Servando Del Rosario MD) ADHD (Acute) Injury of right hand (Acute) Pre-op evaluation (Acute) Depression, major, severe recurrence (Acute) Past Medical History Medical History ADHD Cervical radiculopathy at C7 Injury of right hand Family History Family history of problems with anesthesia: No Surgical History History of Problems with Anesthesia: No Social History Social History Patient Tobacco Use Status: Current everyday Tobacco user Tobacco use type: Cigarette Advance Directives: No Advance Directives Information Provided: Yes Meds Allergies Allergy/AdvReac Type Severity Reaction Status Date / Time No Known Allergies Allergy Verified 03/04/23 13:50 Home Medications Medication Instructions Recorded Confirmed Last Taken Type brexpiprazole 3 mg tablet (Rexulti) 3 mg PO QAM 03/06/23 03/06/23 Unknown History dextroamphetamine-amphetamine 20 1 tab PO QPM 03/06/23 03/06/23 Unknown History mg tablet lisdexamfetamine 70 mg capsule 70 mg PO DAILY 03/06/23 03/06/23 Unknown History (Vyvanse) lorazepam 1 mg tablet 1 mg PO BID PRN 03/06/23 03/06/23 Unknown History nortriptyline 50 mg capsule 100 mg PO BEDTIME 03/06/23 03/06/23 Unknown History zolpidem 10 mg tablet 10 mg PO BEDTIME PRN 03/06/23 03/06/23 Unknown History Exam Exam Date and Time: March 29, 2023 0819 Height,Weight and Vital Signs: Height 5 ft 8 in Weight 99.79 kg Last Vital Signs Temp 97.8 F 03/29/23 06:40 Pulse 97 03/29/23 06:40 Resp 16 03/29/23 06:40 BP 121/96 H 03/29/23 06:40 Pulse Ox 97 03/29/23 06:40 O2 Del Method Room Air 03/29/23 06:40 Airway Mallampati Class: III TM Dist: >3cm Neck ROM: Full Assessment and Plan Assessment Anesthesia Assessment: Anesthesia Plan Discussed and Chart Reviewed Final Anesthetic Review Family History of Problems with Anesthesia: No History of Problems with Anesthesia: No NPO: Yes ASA Class: II Final Preanesthetic Review: No Changes in Pt Med Stat, Meds/Allgs Chart Reviewed, Consent Obtained/Reviewed and Anes Risks/Benef Reviewed Patient Risk: Intermediate Procedure Risk: Intermediate Anesthetic Plan Anesthetic Plan: GA Disposition: Standard PACU
== END 2023-03-29 09:34 | disposition home or self-care (01) ==
PROVIDERS: PCP Family Medicine; Visit Provider Psychiatry & Neurology Psychiatry
PROC: (CPT 90870; principal; 2023-03-29 15:00)
DX: F33.2 Major depressive disorder, recurrent severe without psychotic features (principal); F41.1 Generalized anxiety disorder; F90.9 Attention-deficit hyperactivity disorder, unspecified type; E66.9 Obesity, unspecified; Z79.899 Other long term (current) drug therapy; F17.210 Nicotine dependence, cigarettes, uncomplicated
CPT/HCPCS: 90870; J0330; J1885; J2250; J2405

== ENCOUNTER → 2023-03-29 06:07 | Outpatient (BNV) | payer OTHER, SELFPAY | PROVIDERS: PCP Family Medicine; Visit Provider Psychiatry & Neurology Psychiatry | DX: F33.3 Major depressive disorder, recurrent, severe with psychotic symptoms (principal) | CPT/HCPCS: 90870 ==

== ENCOUNTER 2023-04-01 06:04 | Day surgery (SDC) | payer OTHER, SELFPAY ==
[2023-04-01 06:38] VITALS: BP 109/92; PULSE 102; RESP 16; TEMP 36.9; O2SAT 95; BMI 33.4
--- NOTE | 2023-04-01 07:19 | MHC.SHP ---
Pre-Procedural Eval Section A Date of Service: 04/01/23 The patient is an INPATIENT: No Changes since office visit: Yes Cold of Flu in the past 2 weeks, Yes New Medical Problems, Yes Changes in Medication and Yes Patient answered all questions The History & Physical has been completed within 30 days and I have reviewed it.: Yes Section B Chief Complaint: Major depressive disorder, recurrent, severe with Allergies: Allergies Allergy/AdvReac Type Severity Reaction Status Date / Time No Known Allergies Allergy Verified 03/04/23 13:50 Plan I have reviewed the history and physical and performed a pertinent physical examination on my patient. No changes have occurred unless specified. Time Spent With Patient Time: Total time managing care of this patient today ____ minutes.
--- NOTE | 2023-04-01 07:19 | HO.ECTPROC ---
ECT Procedure Note Diagnosis/Treatment Date of Service: 04/01/23 Diagnosis: Major Depressive Disorder Previous ECT Date: 03/29/23 Current Treatment Number: 8 Treatment: Series Interval Clinical Notes: The patient reported no improvement of his mood, no changes on medications. He reported that his tongue is numb since last procedure. Apparently, he had a hard time trying to get sedated on the last procedure. Today, we did Brevital with no problems, sedated and relaxed with Suc 180. Propofol after procedure when awaking was done. Time: Total time managing care of this patient today __30__ minutes. ECT Settings Device: THYMATRON DGx Electrode Placement: Bifrontal Program/Pulse Width: 0.50 Energy Percent: 90 Seizure Duration By EEG (in seconds): 36 By Motor Observation (in seconds): 21 Medications Administration General Anesthetic: Methohexital (120) Muscle Relaxant: Succinylcholine (180) Ancillary Medications Analgesics: Torodol - Pre ECT Anti-emetics: Zofran - Pre ECT Miscillaneous Medications: Propofol Airway Management Airway Management: LMA Treatment Recommendations No Changes Recommended: No change Pt Tolerated Procedure w/o Issue: Yes
--- NOTE | 2023-04-01 07:41 | HO.ANESPROP2 ---
HPI - Anesthesia Eval Consult details Narrative: 32 yo male patient for ECT [facility] Active Problems Active Problems: All Active Problems (Updated 03/06/23 @ 17:34 by Servando Del Rosario MD) ADHD (Acute) Injury of right hand (Acute) Pre-op evaluation (Acute) Depression, major, severe recurrence (Acute) Past Medical History Medical History ADHD Cervical radiculopathy at C7 Injury of right hand Family History Family history of problems with anesthesia: No Surgical History History of Problems with Anesthesia: No Social History Social History Patient Tobacco Use Status: Current everyday Tobacco user Tobacco use type: Cigarette Advance Directives: No Advance Directives Information Provided: Yes Meds Allergies Allergy/AdvReac Type Severity Reaction Status Date / Time No Known Allergies Allergy Verified 03/04/23 13:50 Home Medications Medication Instructions Recorded Confirmed Last Taken Type brexpiprazole 3 mg tablet (Rexulti) 3 mg PO QAM 03/06/23 03/06/23 Unknown History dextroamphetamine-amphetamine 20 1 tab PO QPM 03/06/23 03/06/23 Unknown History mg tablet lisdexamfetamine 70 mg capsule 70 mg PO DAILY 03/06/23 03/06/23 Unknown History (Vyvanse) lorazepam 1 mg tablet 1 mg PO BID PRN 03/06/23 03/06/23 Unknown History nortriptyline 50 mg capsule 100 mg PO BEDTIME 03/06/23 03/06/23 Unknown History zolpidem 10 mg tablet 10 mg PO BEDTIME PRN 03/06/23 03/06/23 Unknown History Exam Exam Date and Time: April 01, 2023 0741 Height,Weight and Vital Signs: Height 5 ft 8 in Weight 99.79 kg Last Vital Signs Temp 98.4 F 04/01/23 06:38 Pulse 102 H 04/01/23 06:38 Resp 16 04/01/23 06:38 BP 109/92 H 04/01/23 06:38 Pulse Ox 95 04/01/23 06:38 O2 Del Method Room Air 04/01/23 06:38 Airway Mallampati Class: II (Bearded) TM Dist: >3cm Neck ROM: Full Loose/Missing/Broken Teeth: Yes (Missing 1 tooth back) Heart: RRR Lungs: CTAB Assessment and Plan Final Anesthetic Review Family History of Problems with Anesthesia: No History of Problems with Anesthesia: No NPO: Yes ASA Class: III Final Preanesthetic Review: No Changes in Pt Med Stat, Meds/Allgs Chart Reviewed, Consent Obtained/Reviewed and Anes Risks/Benef Reviewed Patient Risk: Intermediate Procedure Risk: Intermediate Anesthetic Plan Anesthetic Plan: GA Disposition: Standard PACU
[2023-04-01 07:49] VITALS: BP 137/91; PULSE 105; RESP 18; TEMP 37.2; O2SAT 97
[2023-04-01 07:54] VITALS: BP 135/94; PULSE 95; RESP 19; O2SAT 94
[2023-04-01 07:59] VITALS: BP 128/92; PULSE 94; RESP 17; O2SAT 96
[2023-04-01 08:04] VITALS: BP 120/83; PULSE 92; RESP 19; O2SAT 95
[2023-04-01 08:19] VITALS: BP 125/87; PULSE 90; RESP 16; TEMP 36.8; O2SAT 95
== END 2023-04-01 08:45 | disposition home or self-care (01) ==
PROVIDERS: Psychiatry & Neurology Psychiatry; PCP Family Medicine; Visit Provider Psychiatry & Neurology Psychiatry
PROC: (CPT 90870; principal; 2023-04-01 15:30)
DX: F41.1 Generalized anxiety disorder (principal); F33.2 Major depressive disorder, recurrent severe without psychotic features; F39 Unspecified mood [affective] disorder; F90.9 Attention-deficit hyperactivity disorder, unspecified type; K13.29 Other disturbances of oral epithelium, including tongue; F17.210 Nicotine dependence, cigarettes, uncomplicated; Z79.899 Other long term (current) drug therapy
CPT/HCPCS: 90870; J0330; J1885; J2250; J2405

== ENCOUNTER → 2023-04-01 06:04 | Outpatient (BNV) | payer OTHER, SELFPAY | PROVIDERS: PCP Family Medicine; Visit Provider Psychiatry & Neurology Psychiatry | DX: F33.3 Major depressive disorder, recurrent, severe with psychotic symptoms (principal) | CPT/HCPCS: 90870 ==

== ENCOUNTER 2023-04-05 07:58 | Day surgery (SDC) | payer OTHER, SELFPAY ==
[2023-04-05 08:10] VITALS: BP 131/93; PULSE 91; RESP 16; TEMP 36.2; O2SAT 95; BMI 33.4
--- NOTE | 2023-04-05 08:54 | HO.ANESPROP2 ---
[facility] Active Problems Active Problems: All Active Problems (Updated 03/06/23 @ 17:34 by Servando Del Rosario MD) ADHD (Acute) Injury of right hand (Acute) Pre-op evaluation (Acute) Depression, major, severe recurrence (Acute) Past Medical History Medical History ADHD Cervical radiculopathy at C7 Injury of right hand Family History Family history of problems with anesthesia: No Surgical History History of Problems with Anesthesia: No Social History Social History Patient Tobacco Use Status: Current everyday Tobacco user Tobacco use type: Cigarette Advance Directives: No Advance Directives Information Provided: Yes Meds Allergies Allergy/AdvReac Type Severity Reaction Status Date / Time No Known Allergies Allergy Verified 03/04/23 13:50 Home Medications Medication Instructions Recorded Confirmed Last Taken Type brexpiprazole 3 mg tablet (Rexulti) 3 mg PO QAM 03/06/23 03/06/23 Unknown History dextroamphetamine-amphetamine 20 1 tab PO QPM 03/06/23 03/06/23 Unknown History mg tablet lisdexamfetamine 70 mg capsule 70 mg PO DAILY 03/06/23 03/06/23 Unknown History (Vyvanse) lorazepam 1 mg tablet 1 mg PO BID PRN 03/06/23 03/06/23 Unknown History nortriptyline 50 mg capsule 100 mg PO BEDTIME 03/06/23 03/06/23 Unknown History zolpidem 10 mg tablet 10 mg PO BEDTIME PRN 03/06/23 03/06/23 Unknown History Exam Exam Date and Time: April 05, 2023 0854 Height,Weight and Vital Signs: Height 5 ft 8 in Weight 99.79 kg Last Vital Signs Temp 97.1 F 04/05/23 08:10 Pulse 91 04/05/23 08:10 Resp 16 04/05/23 08:10 BP 131/93 H 04/05/23 08:10 Pulse Ox 95 04/05/23 08:10 O2 Del Method Room Air 04/05/23 08:10 Airway Mallampati Class: III TM Dist: >3cm Neck ROM: Full Assessment and Plan Assessment Anesthesia Assessment: Anesthesia Plan Discussed and Chart Reviewed Final Anesthetic Review Family History of Problems with Anesthesia: No History of Problems with Anesthesia: No NPO: Yes ASA Class: III Final Preanesthetic Review: No Changes in Pt Med Stat, Meds/Allgs Chart Reviewed, Consent Obtained/Reviewed and Anes Risks/Benef Reviewed Patient Risk: Intermediate Procedure Risk: Intermediate Anesthetic Plan Anesthetic Plan: GA Disposition: Standard PACU
--- NOTE | 2023-04-05 09:50 | MHC.SHP ---
Pre-Procedural Eval Section A Date of Service: 04/05/23 The patient is an INPATIENT: No Changes since office visit: No Cold of Flu in the past 2 weeks, No New Medical Problems, No Changes in Medication and No Patient answered all questions The History & Physical has been completed within 30 days and I have reviewed it.: Yes Section B Chief Complaint: depression Allergies: Allergies Allergy/AdvReac Type Severity Reaction Status Date / Time No Known Allergies Allergy Verified 03/04/23 13:50 Plan I have reviewed the history and physical and performed a pertinent physical examination on my patient. No changes have occurred unless specified. Time Spent With Patient Time: Total time managing care of this patient today ____ minutes.
--- NOTE | 2023-04-05 10:09 | HO.ECTPROC ---
ECT Procedure Note Diagnosis/Treatment Date of Service: 04/05/23 Diagnosis: Major Depressive Disorder Previous ECT Date: 04/01/23 Current Treatment Number: 9 Treatment: Series Interval Clinical Notes: The patient reported no changes on his mental status, but we have noticed a brighter affect. Still with his tongue numb at times. Today, procedure done without any complications Time: Total time managing care of this patient today _30___ minutes. ECT Settings Device: THYMATRON DGx Electrode Placement: Bifrontal Program/Pulse Width: 0.50 Energy Percent: 90 Seizure Duration By EEG (in seconds): 22 By Motor Observation (in seconds): 15 Medications Administration General Anesthetic: Methohexital (120) Muscle Relaxant: Succinylcholine (180) Ancillary Medications Analgesics: Torodol - Pre ECT Anti-emetics: Zofran - Pre ECT Miscillaneous Medications: Propofol Airway Management Airway Management: LMA Treatment Recommendations No Changes Recommended: No change Pt Tolerated Procedure w/o Issue: Yes
[2023-04-05 10:21] VITALS: BP 132/88; PULSE 100; RESP 17; TEMP 36.2; O2SAT 95
[2023-04-05 10:26] VITALS: BP 114/79; PULSE 95; RESP 15; O2SAT 91
[2023-04-05 10:31] VITALS: BP 125/87; PULSE 92; RESP 15; O2SAT 96
[2023-04-05 10:36] VITALS: BP 120/83; PULSE 97; RESP 14; O2SAT 97
[2023-04-05 10:51] VITALS: BP 128/89; PULSE 98; RESP 16; TEMP 36.2; O2SAT 96
== END 2023-04-05 11:10 | disposition home or self-care (01) ==
PROVIDERS: PCP Family Medicine; Visit Provider Psychiatry & Neurology Psychiatry
PROC: (CPT 90870; principal; 2023-04-05 15:00)
DX: F33.2 Major depressive disorder, recurrent severe without psychotic features (principal); F90.9 Attention-deficit hyperactivity disorder, unspecified type; K13.29 Other disturbances of oral epithelium, including tongue; F17.210 Nicotine dependence, cigarettes, uncomplicated; Z79.899 Other long term (current) drug therapy
CPT/HCPCS: 90870; J0330; J1885; J2405

== ENCOUNTER → 2023-04-05 07:58 | Outpatient (BNV) | payer OTHER, SELFPAY | PROVIDERS: PCP Family Medicine; Visit Provider Psychiatry & Neurology Psychiatry | DX: F33.3 Major depressive disorder, recurrent, severe with psychotic symptoms (principal) | CPT/HCPCS: 90870 ==

== ENCOUNTER 2023-04-08 06:10 | Day surgery (SDC) | payer OTHER, SELFPAY ==
[2023-04-08] VITALS (7 sets, daily range): BP systolic 115–126; BP diastolic 82–97; PULSE 90–105; RESP 10–20; TEMP 36.1–36.6; O2SAT 96–99; BMI 36.5
--- NOTE | 2023-04-08 06:51 | HO.ANESPROP2 ---
[facility] Active Problems Active Problems: All Active Problems (Updated 03/06/23 @ 17:34 by Servando Del Rosario MD) ADHD (Acute) Injury of right hand (Acute) Pre-op evaluation (Acute) Depression, major, severe recurrence (Acute) Past Medical History Medical History ADHD Cervical radiculopathy at C7 Injury of right hand Family History Family history of problems with anesthesia: No Surgical History History of Problems with Anesthesia: No Social History Social History Patient Tobacco Use Status: Current everyday Tobacco user Tobacco use type: Cigarette Advance Directives: No Advance Directives Information Provided: Yes Meds Allergies Allergy/AdvReac Type Severity Reaction Status Date / Time No Known Allergies Allergy Verified 03/04/23 13:50 Active Medications: Current Medications Lactated Ringer's (Lr) 1,000 mls @ 50 mls/hr IVCONT .Q20H [facility] Home Medications Medication Instructions Recorded Confirmed Last Taken Type brexpiprazole 3 mg tablet (Rexulti) 3 mg PO QAM 03/06/23 03/06/23 Unknown History dextroamphetamine-amphetamine 20 1 tab PO QPM 03/06/23 03/06/23 Unknown History mg tablet lisdexamfetamine 70 mg capsule 70 mg PO DAILY 03/06/23 03/06/23 Unknown History (Vyvanse) lorazepam 1 mg tablet 1 mg PO BID PRN 03/06/23 03/06/23 Unknown History nortriptyline 50 mg capsule 100 mg PO BEDTIME 03/06/23 03/06/23 Unknown History zolpidem 10 mg tablet 10 mg PO BEDTIME PRN 03/06/23 03/06/23 Unknown History Exam Exam Date and Time: April 08, 2023 0651 Height,Weight and Vital Signs: Height 5 ft 8 in Weight 108.862 kg Last Vital Signs Temp 97.1 F 04/08/23 06:33 Pulse 105 H 04/08/23 06:33 Resp 20 04/08/23 06:33 BP 115/86 04/08/23 06:33 Pulse Ox 97 04/08/23 06:33 O2 Del Method Room Air 04/08/23 06:33 Airway Mallampati Class: II TM Dist: >3cm Neck ROM: Full Heart: rrr Lungs: cta Assessment and Plan Assessment Anesthesia Assessment: Anesthesia Plan Discussed and Chart Reviewed Final Anesthetic Review Family History of Problems with Anesthesia: No History of Problems with Anesthesia: No NPO: Yes ASA Class: III Final Preanesthetic Review: No Changes in Pt Med Stat, Meds/Allgs Chart Reviewed and Consent Obtained/Reviewed Patient Risk: Intermediate Procedure Risk: Intermediate Anesthetic Plan Anesthetic Plan: GA Disposition: Standard PACU
--- NOTE | 2023-04-08 07:41 | MHC.SHP ---
Pre-Procedural Eval Section A Date of Service: 04/08/23 The patient is an INPATIENT: No Changes since office visit: Yes Cold of Flu in the past 2 weeks, Yes New Medical Problems, Yes Changes in Medication and Yes Patient answered all questions The History & Physical has been completed within 30 days and I have reviewed it.: Yes Section B Chief Complaint: depression Allergies: Allergies Allergy/AdvReac Type Severity Reaction Status Date / Time No Known Allergies Allergy Verified 03/04/23 13:50 Plan I have reviewed the history and physical and performed a pertinent physical examination on my patient. No changes have occurred unless specified. Time Spent With Patient Time: Total time managing care of this patient today ____ minutes.
--- NOTE | 2023-04-08 07:56 | HO.ECTPROC ---
ECT Procedure Note Diagnosis/Treatment Date of Service: 04/08/23 Diagnosis: Major Depressive Disorder Previous ECT Date: 04/05/23 Current Treatment Number: 10 Treatment: Series Interval Clinical Notes: The patient deneis major changes on his mental status but his affect is brighter, smiling and responding well. Still with some numbness of his tongue. Today we decided to increase the dose of Brevital for anestesia. Time: Total time managing care of this patient today __30__ minutes. ECT Settings Device: THYMATRON DGx Electrode Placement: Bifrontal Program/Pulse Width: 0.50 Energy Percent: 90 Seizure Duration By EEG (in seconds): 24 By Motor Observation (in seconds): 0 Medications Administration General Anesthetic: Methohexital (150) Muscle Relaxant: Succinylcholine (180) Ancillary Medications Analgesics: Torodol - Pre ECT Anti-emetics: Zofran - Pre ECT Miscillaneous Medications: Propofol Airway Management Airway Management: LMA Treatment Recommendations Electrode Placement: Bifrontal Program/Pulse Width: 0.50 Energy Percent: 100 Pt Tolerated Procedure w/o Issue: Yes
== END 2023-04-08 08:59 | disposition home or self-care (01) ==
PROVIDERS: PCP Family Medicine; Visit Provider Psychiatry & Neurology Psychiatry
PROC: (CPT 90870; principal; 2023-04-08 07:30)
DX: F33.2 Major depressive disorder, recurrent severe without psychotic features (principal); F41.1 Generalized anxiety disorder; F90.9 Attention-deficit hyperactivity disorder, unspecified type; K13.29 Other disturbances of oral epithelium, including tongue; F17.210 Nicotine dependence, cigarettes, uncomplicated; Z79.899 Other long term (current) drug therapy
CPT/HCPCS: 90870; J0330; J1885; J2405

== ENCOUNTER → 2023-04-08 06:10 | Outpatient (BNV) | payer OTHER, SELFPAY | PROVIDERS: PCP Family Medicine; Visit Provider Psychiatry & Neurology Psychiatry | DX: F33.3 Major depressive disorder, recurrent, severe with psychotic symptoms (principal) | CPT/HCPCS: 90870 ==

== ENCOUNTER 2023-04-10 06:05 | Day surgery (SDC) | payer OTHER, SELFPAY ==
[2023-04-10] VITALS (7 sets, daily range): BP systolic 101–129; BP diastolic 72–88; PULSE 91–109; RESP 16–20; TEMP 36.1–36.8; O2SAT 95–98; BMI 33.4
--- NOTE | 2023-04-10 06:49 | P.CONAN_ITS ---
[facility] Active Problems Active Problems: All Active Problems (Updated 03/06/23 @ 17:34 by Servando Del Rosario MD) ADHD (Acute) Injury of right hand (Acute) Pre-op evaluation (Acute) Depression, major, severe recurrence (Acute) Past Medical History Medical History ADHD Cervical radiculopathy at C7 Injury of right hand Family History Family history of problems with anesthesia: No Surgical History History of Problems with Anesthesia: No Social History Social History Patient Tobacco Use Status: Current everyday Tobacco user Tobacco use type: Cigarette Advance Directives: No Advance Directives Information Provided: Yes Meds Allergies Allergy/AdvReac Type Severity Reaction Status Date / Time No Known Allergies Allergy Verified 03/04/23 13:50 Home Medications Medication Instructions Recorded Confirmed Last Taken Type brexpiprazole 3 mg tablet (Rexulti) 3 mg PO QAM 03/06/23 03/06/23 Unknown History dextroamphetamine-amphetamine 20 1 tab PO QPM 03/06/23 03/06/23 Unknown History mg tablet lisdexamfetamine 70 mg capsule 70 mg PO DAILY 03/06/23 03/06/23 Unknown History (Vyvanse) lorazepam 1 mg tablet 1 mg PO BID PRN 03/06/23 03/06/23 Unknown History nortriptyline 50 mg capsule 100 mg PO BEDTIME 03/06/23 03/06/23 Unknown History zolpidem 10 mg tablet 10 mg PO BEDTIME PRN 03/06/23 03/06/23 Unknown History Exam Exam Date and Time: April 10, 2023 0649 Height,Weight and Vital Signs: Height 5 ft 8 in Weight 99.79 kg Last Vital Signs Temp 96.9 F 04/10/23 06:35 Pulse 98 04/10/23 06:35 Resp 16 04/10/23 06:35 BP 118/72 04/10/23 06:35 Pulse Ox 95 04/10/23 06:35 O2 Del Method Room Air 04/10/23 06:35 Airway Mallampati Class: III TM Dist: >3cm Neck ROM: Full Heart: rrr Lungs: cta Assessment and Plan Assessment Anesthesia Assessment: Anesthesia Plan Discussed and Chart Reviewed Final Anesthetic Review Family History of Problems with Anesthesia: No History of Problems with Anesthesia: No NPO: Yes ASA Class: III Final Preanesthetic Review: No Changes in Pt Med Stat, Meds/Allgs Chart Reviewed and Consent Obtained/Reviewed Patient Risk: Intermediate Procedure Risk: Intermediate Anesthetic Plan Anesthetic Plan: GA Disposition: Standard PACU
--- NOTE | 2023-04-10 07:26 | MHC.SHP ---
Pre-Procedural Eval Section A Date of Service: 04/10/23 The patient is an INPATIENT: No Changes since office visit: No Cold of Flu in the past 2 weeks, No New Medical Problems, No Changes in Medication and No Patient answered all questions The History & Physical has been completed within 30 days and I have reviewed it.: Yes Section B Chief Complaint: depression Allergies: Allergies Allergy/AdvReac Type Severity Reaction Status Date / Time No Known Allergies Allergy Verified 03/04/23 13:50 Plan I have reviewed the history and physical and performed a pertinent physical examination on my patient. No changes have occurred unless specified. Time Spent With Patient Time: Total time managing care of this patient today ____ minutes.
--- NOTE | 2023-04-10 07:37 | HO.ECTPROC ---
ECT Procedure Note Diagnosis/Treatment Date of Service: 04/10/23 Diagnosis: Major Depressive Disorder Previous ECT Date: 04/08/23 Current Treatment Number: 11 Treatment: Series Interval Clinical Notes: The patient reported improvement of his mood the dark cloud is lifting , his affect is brighter. He had headaches after the last procedure. Time: Total time managing care of this patient today _30___ minutes. ECT Settings Device: THYMATRON DGx Electrode Placement: Bifrontal Program/Pulse Width: 0.50 Energy Percent: 100 Seizure Duration By EEG (in seconds): 37 By Motor Observation (in seconds): 16 Medications Administration General Anesthetic: Methohexital (150) Muscle Relaxant: Succinylcholine (180) Ancillary Medications Analgesics: Torodol - Pre ECT Anti-emetics: Zofran - Pre ECT Cardiovascular Medications: Glycopyrrolate Miscillaneous Medications: Propofol Airway Management Airway Management: LMA Treatment Recommendations No Changes Recommended: No change Pt Tolerated Procedure w/o Issue: Yes
[2023-04-10] MEDS: Acetaminophen 325 MG TABLET 650 MG PO (08:44)
== END 2023-04-10 09:07 | disposition home or self-care (01) ==
PROVIDERS: PCP Family Medicine; Visit Provider Psychiatry & Neurology Psychiatry
PROC: (CPT 90870; principal; 2023-04-10 07:00)
DX: F33.2 Major depressive disorder, recurrent severe without psychotic features (principal); F41.1 Generalized anxiety disorder; F90.9 Attention-deficit hyperactivity disorder, unspecified type; Z79.899 Other long term (current) drug therapy; F17.210 Nicotine dependence, cigarettes, uncomplicated
CPT/HCPCS: 90870; J0330; J1885; J2405

== ENCOUNTER → 2023-04-10 06:05 | Outpatient (BNV) | payer OTHER, SELFPAY | PROVIDERS: PCP Family Medicine; Visit Provider Psychiatry & Neurology Psychiatry | DX: F33.3 Major depressive disorder, recurrent, severe with psychotic symptoms (principal) | CPT/HCPCS: 90870 ==

== ENCOUNTER 2023-04-15 06:04 | Day surgery (SDC) | payer OTHER, SELFPAY ==
[2023-04-15] VITALS (7 sets, daily range): BP systolic 118–128; BP diastolic 84–92; PULSE 88–100; RESP 14–17; TEMP 36.1–36.8; O2SAT 95–99; BMI 32.5
--- NOTE | 2023-04-15 06:46 | HO.ANESPROP2 ---
[facility] Active Problems Active Problems: All Active Problems (Updated 03/06/23 @ 17:34 by Servando Del Rosario MD) ADHD (Acute) Injury of right hand (Acute) Pre-op evaluation (Acute) Depression, major, severe recurrence (Acute) Past Medical History Medical History ADHD Cervical radiculopathy at C7 Injury of right hand Family History Family history of problems with anesthesia: No Surgical History History of Problems with Anesthesia: No Social History Social History Patient Tobacco Use Status: Current everyday Tobacco user Tobacco use type: Cigarette Cigarette Packs Per Day: 1 Cigarettes Per Day: 20.0 Are you DNR?: No Advance Directives: No Advance Directives Information Provided: Yes Meds Allergies Allergy/AdvReac Type Severity Reaction Status Date / Time No Known Allergies Allergy Verified 03/04/23 13:50 Active Medications: Current Medications Lactated Ringer's (Lr) 1,000 mls @ 50 mls/hr IVCONT .Q20H [facility] Home Medications Medication Instructions Recorded Confirmed Last Taken Type brexpiprazole 3 mg tablet (Rexulti) 3 mg PO QAM 03/06/23 03/06/23 Unknown History dextroamphetamine-amphetamine 20 1 tab PO QPM 03/06/23 03/06/23 Unknown History mg tablet lisdexamfetamine 70 mg capsule 70 mg PO DAILY 03/06/23 03/06/23 Unknown History (Vyvanse) lorazepam 1 mg tablet 1 mg PO BID PRN 03/06/23 03/06/23 Unknown History nortriptyline 50 mg capsule 100 mg PO BEDTIME 03/06/23 03/06/23 Unknown History zolpidem 10 mg tablet 10 mg PO BEDTIME PRN 03/06/23 03/06/23 Unknown History Exam Exam Date and Time: April 15, 2023 0646 Height,Weight and Vital Signs: Height 5 ft 9 in Weight 99.798 kg Last Vital Signs Temp 97 F 04/15/23 06:20 Pulse 88 04/15/23 06:20 Resp 16 04/15/23 06:20 BP 121/87 04/15/23 06:20 Pulse Ox 99 04/15/23 06:20 O2 Del Method Room Air 04/15/23 06:20 Airway Mallampati Class: II TM Dist: >3cm Neck ROM: Full Heart: rrr Lungs: cta Assessment and Plan Assessment Anesthesia Assessment: Anesthesia Plan Discussed and Chart Reviewed Final Anesthetic Review Family History of Problems with Anesthesia: No History of Problems with Anesthesia: No NPO: Yes ASA Class: III Final Preanesthetic Review: No Changes in Pt Med Stat, Meds/Allgs Chart Reviewed and Consent Obtained/Reviewed Patient Risk: Intermediate Procedure Risk: Intermediate Anesthetic Plan Anesthetic Plan: GA Disposition: Standard PACU
--- NOTE | 2023-04-15 07:50 | MHC.SHP ---
Pre-Procedural Eval Section A Date of Service: 04/15/23 The patient is an INPATIENT: No Changes since office visit: No Cold of Flu in the past 2 weeks, No New Medical Problems and No Changes in Medication The History & Physical has been completed within 30 days and I have reviewed it.: Yes Section B Chief Complaint: Major depressive disorder, recurrent, severe with Allergies: Allergies Allergy/AdvReac Type Severity Reaction Status Date / Time No Known Allergies Allergy Verified 03/04/23 13:50 Plan I have reviewed the history and physical and performed a pertinent physical examination on my patient. No changes have occurred unless specified. Time Spent With Patient Time: Total time managing care of this patient today ____ minutes.
--- NOTE | 2023-04-15 07:51 | HO.ECTPROC ---
ECT Procedure Note Diagnosis/Treatment Date of Service: 04/15/23 Diagnosis: Major Depressive Disorder Previous ECT Date: 04/10/23 Current Treatment Number: 12 Treatment: Series Interval Clinical Notes: The patient reported improvement of his mood tp some degree no si Time: Total time managing care of this patient today ____ minutes. ECT Settings Device: THYMATRON DGx Electrode Placement: Bifrontal Program/Pulse Width: 0.50 Energy Percent: 100 Seizure Duration By EEG (in seconds): 22 Medications Administration General Anesthetic: Methohexital (150) Muscle Relaxant: Succinylcholine (180) Ancillary Medications Analgesics: Torodol - Pre ECT Anti-emetics: Zofran - Pre ECT Cardiovascular Medications: Glycopyrrolate (0.2 secretions) Miscillaneous Medications: Propofol Airway Management Airway Management: LMA Treatment Recommendations Notes: lower brevital or change to rtlf may also be having effect from thc may be complicating picture f/u tx 10 days Pt Tolerated Procedure w/o Issue: Yes
== END 2023-04-15 09:14 | disposition home or self-care (01) ==
PROVIDERS: PCP Family Medicine; Visit Provider Psychiatry & Neurology Psychiatry
PROC: (CPT 90870; principal; 2023-04-15 07:00)
DX: F33.2 Major depressive disorder, recurrent severe without psychotic features (principal); F41.1 Generalized anxiety disorder; Z79.899 Other long term (current) drug therapy; F17.210 Nicotine dependence, cigarettes, uncomplicated
CPT/HCPCS: 90870; J0330; J1885; J2405

== ENCOUNTER → 2023-04-15 06:04 | Outpatient (BNV) | payer OTHER, SELFPAY | PROVIDERS: PCP Family Medicine; Visit Provider Psychiatry & Neurology Psychiatry | DX: F33.3 Major depressive disorder, recurrent, severe with psychotic symptoms (principal) | CPT/HCPCS: 90870 ==

== ENCOUNTER 2023-05-10 06:02 | Day surgery (SDC) | payer OTHER, SELFPAY ==
[2023-05-10 06:30] VITALS: BP 110/73; PULSE 87; RESP 16; TEMP 36.6; O2SAT 96; BMI 32.5
--- NOTE | 2023-05-10 07:28 | MHC.SHP ---
Pre-Procedural Eval Section A Date of Service: 05/10/23 The patient is an INPATIENT: No Changes since office visit: Yes Changes in Medication and Yes Patient answered all questions; No Cold of Flu in the past 2 weeks and No New Medical Problems The History & Physical has been completed within 30 days and I have reviewed it.: No Section B Chief Complaint: depression Details of Present Illness: recurrent dep Present Medications: see Short Stay Collaborative assessment Medical History: No relevant PMH History of Previous Operations: Relevant previous surgery/procedure and date(s) (ect) Allergies: Allergies Allergy/AdvReac Type Severity Reaction Status Date / Time No Known Allergies Allergy Verified 03/04/23 13:50 Review of Systems Sugical H&P ROS: Negative: Constitution, Cardiovascular, Respiratory and Neurological and Yes, Specify: Psychiatric (feels improved) Exam Surgical H&P Exam: Normal: Heart, Normal: Lungs and Normal: Neurological Plan Diagnosis/Plan: Unchanged I have reviewed the history and physical and performed a pertinent physical examination on my patient. No changes have occurred unless specified. Time Spent With Patient Time: Total time managing care of this patient today ____ minutes.
--- NOTE | 2023-05-10 07:45 | HO.ECTPROC ---
ECT Procedure Note Diagnosis/Treatment Date of Service: 05/25/23 Diagnosis: Major Depressive Disorder Previous ECT Date: 04/15/23 Current Treatment Number: 13 Treatment: Maintenance Interval Clinical Notes: The patient asked for [place] tx feels in retrospect it was helpful have discussed potential interactions with extent of marijuana use which he has been urged to cut back on and stimulant dosing has been decreased Time: Total time managing care of this patient today ____ minutes. ECT Settings Device: THYMATRON DGx Electrode Placement: Rt temporal/ Lt frontal Program/Pulse Width: 0.50 Energy Percent: 100 Seizure Duration By EEG (in seconds): 42 Medications Administration General Anesthetic: Methohexital (150) Muscle Relaxant: Succinylcholine (140) Ancillary Medications Analgesics: Torodol - Pre ECT (30) Anti-emetics: Zofran - Pre ECT Cardiovascular Medications: Glycopyrrolate (0.2 secretions) Miscillaneous Medications: Propofol Airway Management Airway Management: LMA Treatment Recommendations No Changes Recommended: No change Pt Tolerated Procedure w/o Issue: Yes
[2023-05-10 07:53] VITALS: BP 134/78; PULSE 86; RESP 16; TEMP 36.8; O2SAT 98
[2023-05-10 07:58] VITALS: BP 108/67; PULSE 97; RESP 18; O2SAT 99
[2023-05-10 08:03] VITALS: BP 120/84; PULSE 92; RESP 15; O2SAT 100
[2023-05-10 08:09] VITALS: BP 117/82; PULSE 83; RESP 12; O2SAT 97
--- NOTE | 2023-05-10 08:23 | P.CONAN_ITS ---
[facility] Active Problems Active Problems: All Active Problems (Updated 03/06/23 @ 17:34 by Servando Del Rosario MD) ADHD (Acute) Injury of right hand (Acute) Pre-op evaluation (Acute) Depression, major, severe recurrence (Acute) Past Medical History Medical History ADHD Cervical radiculopathy at C7 Injury of right hand Functional capacity: independent ambulation Family History Family history of problems with anesthesia: No Surgical History History of Problems with Anesthesia: No Social History Social History Patient Tobacco Use Status: Current everyday Tobacco user Tobacco use type: Cigarette Cigarette Packs Per Day: 1 Cigarettes Per Day: 20.0 Advance Directives: No Advance Directives Information Provided: Yes Meds Allergies Allergy/AdvReac Type Severity Reaction Status Date / Time No Known Allergies Allergy Verified 03/04/23 13:50 Home Medications Medication Instructions Recorded Confirmed Last Taken Type brexpiprazole 3 mg tablet (Rexulti) 3 mg PO QAM 03/06/23 03/06/23 Unknown History dextroamphetamine-amphetamine 20 1 tab PO QPM 03/06/23 03/06/23 Unknown History mg tablet lisdexamfetamine 70 mg capsule 70 mg PO DAILY 03/06/23 03/06/23 Unknown History (Vsweta) lorazepam 1 mg tablet 1 mg PO BID PRN 03/06/23 03/06/23 Unknown History nortriptyline 50 mg capsule 100 mg PO BEDTIME 03/06/23 03/06/23 Unknown History zolpidem 10 mg tablet 10 mg PO BEDTIME PRN 03/06/23 03/06/23 Unknown History Exam Exam Date and Time: May 10, 2023822 Height,Weight and Vital Signs: Height 5 ft 9 in Weight 99.79 kg Last Vital Signs Temp 98.2 F 05/10/23 07:53 Pulse 83 05/10/23 08:09 Resp 12 05/10/23 08:09 BP 117/82 05/10/23 08:09 Pulse Ox 97 05/10/23 08:09 O2 Del Method Nasal Cannula with Capnography 05/10/23 08:09 O2 Flow Rate 2 05/10/23 08:09 Airway Mallampati Class: III TM Dist: >3cm Neck ROM: Full Heart: RRR Lungs: CTA Assessment and Plan Assessment Anesthesia Assessment: Anesthesia Plan Discussed and Smoking Cess. Discussed Final Anesthetic Review Family History of Problems with Anesthesia: No History of Problems with Anesthesia: No NPO: Yes ASA Class: III Final Preanesthetic Review: Meds/Allgs Chart Reviewed, Consent Obtained/Reviewed and Anes Risks/Benef Reviewed Patient Risk: Intermediate Procedure Risk: Low Anesthetic Plan Anesthetic Plan: GA Disposition: Standard PACU
[2023-05-10 08:24] VITALS: BP 109/77; PULSE 84; RESP 16; TEMP 36.4; O2SAT 97
--- NOTE | 2023-05-10 08:24 | HO.POSTANES ---
Post Anesthesia Evaluation Post Anesthesia Evaluation Date of Service: 05/10/23 Vital Signs: Vital Signs Temp Pulse Resp BP Pulse Ox O2 Del Method O2 Flow Rate 05/10/23 08:09 83 12 117/82 97 Nasal Cannula with ETCO2 2 05/10/23 08:03 92 15 120/84 100 Nasal Cannula with ETCO2 2 05/10/23 07:58 97 18 108/67 99 Nasal Cannula with ETCO2 2 05/10/23 07:53 98.2 F 86 16 134/78 98 Nasal Cannula with ETCO2 2 05/10/23 06:30 97.9 F 87 16 110/73 96 Room Air Anesthesia: General Mental Status: Awake Pain Control: Satisfactory Nausea/Vomiting: None Hydration: Adequate Anesthesia-Related Issues: No Anes. Related Issues
== END 2023-05-10 08:40 | disposition home or self-care (01) ==
PROVIDERS: PCP Family Medicine; Visit Provider Psychiatry & Neurology Psychiatry
PROC: (CPT 90870; principal; 2023-05-10 07:30)
DX: F33.2 Major depressive disorder, recurrent severe without psychotic features (principal); F41.1 Generalized anxiety disorder; F90.9 Attention-deficit hyperactivity disorder, unspecified type; Z79.899 Other long term (current) drug therapy; F17.210 Nicotine dependence, cigarettes, uncomplicated
CPT/HCPCS: 90870; J0330; J1885; J2405

== ENCOUNTER → 2023-05-10 06:02 | Outpatient (BNV) | payer OTHER, SELFPAY | PROVIDERS: PCP Family Medicine; Visit Provider Psychiatry & Neurology Psychiatry | DX: F33.2 Major depressive disorder, recurrent severe without psychotic features (principal) | CPT/HCPCS: 90870 ==

== ENCOUNTER 2023-05-29 06:13 | Day surgery (SDC) | payer OTHER, SELFPAY ==
[2023-05-29 06:25] VITALS: BMI 33.4
[2023-05-29 06:26] VITALS: BP 139/90; PULSE 92; RESP 16; TEMP 36.3; O2SAT 95
--- NOTE | 2023-05-29 06:50 | HO.ANESPROP2 ---
[facility] Active Problems Active Problems: All Active Problems (Updated 03/06/23 @ 17:34 by Servando Del Rosario MD) ADHD (Acute) Injury of right hand (Acute) Pre-op evaluation (Acute) Depression, major, severe recurrence (Acute) Past Medical History Medical History ADHD Cervical radiculopathy at C7 Injury of right hand Family History Family history of problems with anesthesia: No Surgical History History of Problems with Anesthesia: No Social History Social History Patient Tobacco Use Status: Current everyday Tobacco user Tobacco use type: Cigarette Cigarette Packs Per Day: 1 Cigarettes Per Day: 20.0 Advance Directives: No Advance Directives Information Provided: Yes Meds Allergies Allergy/AdvReac Type Severity Reaction Status Date / Time No Known Allergies Allergy Verified 03/04/23 13:50 Home Medications Medication Instructions Recorded Confirmed Last Taken Type brexpiprazole 3 mg tablet (Rexulti) 3 mg PO QAM 03/06/23 03/06/23 Unknown History dextroamphetamine-amphetamine 20 1 tab PO QPM 03/06/23 03/06/23 Unknown History mg tablet lisdexamfetamine 70 mg capsule 70 mg PO DAILY 03/06/23 03/06/23 Unknown History (Vyvanse) lorazepam 1 mg tablet 1 mg PO BID PRN 03/06/23 03/06/23 Unknown History nortriptyline 50 mg capsule 100 mg PO BEDTIME 03/06/23 03/06/23 Unknown History zolpidem 10 mg tablet 10 mg PO BEDTIME PRN 03/06/23 03/06/23 Unknown History Exam Exam Date and Time: May 29, 2023 0650 Height,Weight and Vital Signs: Height 5 ft 8 in Weight 99.79 kg Last Vital Signs Temp 97.3 F 05/29/23 06:26 Pulse 92 05/29/23 06:26 Resp 16 05/29/23 06:26 BP 139/90 H 05/29/23 06:26 Pulse Ox 95 05/29/23 06:26 O2 Del Method Room Air 05/29/23 06:26 Airway Mallampati Class: II TM Dist: >3cm Neck ROM: Full Heart: rrr Lungs: cta Assessment and Plan Assessment Anesthesia Assessment: Anesthesia Plan Discussed and Chart Reviewed Final Anesthetic Review Family History of Problems with Anesthesia: No History of Problems with Anesthesia: No NPO: Yes ASA Class: III Final Preanesthetic Review: No Changes in Pt Med Stat, Meds/Allgs Chart Reviewed and Consent Obtained/Reviewed Patient Risk: Intermediate Procedure Risk: Intermediate Anesthetic Plan Anesthetic Plan: GA Disposition: Standard PACU
--- NOTE | 2023-05-29 07:50 | MHC.SHP ---
Pre-Procedural Eval Section A Date of Service: 05/29/23 The patient is an INPATIENT: No Changes since office visit: Yes Changes in Medication and Yes Patient answered all questions; No Cold of Flu in the past 2 weeks and No New Medical Problems The History & Physical has been completed within 30 days and I have reviewed it.: No Section B Chief Complaint: depression Details of Present Illness: recurrent dep Present Medications: see Short Stay Collaborative assessment Medical History: No relevant PMH History of Previous Operations: Relevant previous surgery/procedure and date(s) (ect) Allergies: Allergies Allergy/AdvReac Type Severity Reaction Status Date / Time No Known Allergies Allergy Verified 03/04/23 13:50 Review of Systems Sugical H&P ROS: Negative: Constitution, Cardiovascular, Respiratory and Neurological and Yes, Specify: Psychiatric (feels improved) Exam Surgical H&P Exam: Normal: Heart, Normal: Lungs and Normal: Neurological Plan Diagnosis/Plan: Unchanged I have reviewed the history and physical and performed a pertinent physical examination on my patient. No changes have occurred unless specified. Time Spent With Patient Time: Total time managing care of this patient today ____ minutes.
--- NOTE | 2023-05-29 07:51 | HO.ECTPROC ---
ECT Procedure Note Diagnosis/Treatment Date of Service: 05/29/23 Diagnosis: Major Depressive Disorder Previous ECT Date: 05/10/23 Current Treatment Number: 14 Treatment: Maintenance Interval Clinical Notes: pt states Time: Total time managing care of this patient today ____ minutes. ECT Settings Device: THYMATRON DGx Electrode Placement: Rt temporal/ Lt frontal Program/Pulse Width: 0.50 Energy Percent: 100 Seizure Duration By EEG (in seconds): 42 Medications Administration General Anesthetic: Methohexital (150) Muscle Relaxant: Succinylcholine (140) Ancillary Medications Analgesics: Torodol - Pre ECT (30) Anti-emetics: Zofran - Pre ECT Cardiovascular Medications: Glycopyrrolate (0.2 secretions) Miscillaneous Medications: Propofol Airway Management Airway Management: LMA Treatment Recommendations No Changes Recommended: No change Notes: did well f/u tx 2 1/2 wks Pt Tolerated Procedure w/o Issue: Yes
[2023-05-29 08:11] VITALS: BP 134/101; PULSE 109; RESP 16; TEMP 37.2; O2SAT 94
[2023-05-29 08:16] VITALS: BP 137/91; PULSE 108; RESP 13; O2SAT 94
[2023-05-29 08:21] VITALS: BP 127/93; PULSE 102; RESP 18; O2SAT 96
[2023-05-29 08:26] VITALS: BP 129/88; PULSE 94; RESP 18; O2SAT 94
[2023-05-29 08:41] VITALS: BP 116/79; PULSE 90; RESP 16; TEMP 37.2; O2SAT 95
== END 2023-05-29 09:17 | disposition home or self-care (01) ==
PROVIDERS: PCP Family Medicine; Visit Provider Psychiatry & Neurology Psychiatry
PROC: (CPT 90870; principal; 2023-05-29 15:00)
DX: F33.2 Major depressive disorder, recurrent severe without psychotic features (principal); F90.9 Attention-deficit hyperactivity disorder, unspecified type; M54.12 Radiculopathy, cervical region; F17.210 Nicotine dependence, cigarettes, uncomplicated; Z79.899 Other long term (current) drug therapy
CPT/HCPCS: 90870; J0330; J1885; J2405

== ENCOUNTER → 2023-05-29 06:13 | Outpatient (BNV) | payer OTHER, SELFPAY | PROVIDERS: PCP Family Medicine; Visit Provider Psychiatry & Neurology Psychiatry | DX: F33.3 Major depressive disorder, recurrent, severe with psychotic symptoms (principal) | CPT/HCPCS: 90870 ==

== ENCOUNTER 2023-06-14 06:06 | Day surgery (SDC) | payer OTHER, SELFPAY ==
[2023-06-14 06:24] VITALS: BP 131/95; PULSE 104; RESP 12; TEMP 36.2; O2SAT 97; BMI 32.5
--- NOTE | 2023-06-14 06:46 | P.CONAN_ITS ---
[facility] Active Problems Active Problems: All Active Problems (Updated 03/06/23 @ 17:34 by Servando Del Rosario MD) ADHD (Acute) Injury of right hand (Acute) Pre-op evaluation (Acute) Depression, major, severe recurrence (Acute) Past Medical History Medical History ADHD Cervical radiculopathy at C7 Injury of right hand Family History Family history of problems with anesthesia: No Surgical History History of Problems with Anesthesia: No Social History Social History Patient Tobacco Use Status: Current everyday Tobacco user Tobacco use type: Cigarette Cigarette Packs Per Day: 1 Cigarettes Per Day: 20.0 Advance Directives: No Advance Directives Information Provided: Yes Meds Allergies Allergy/AdvReac Type Severity Reaction Status Date / Time No Known Allergies Allergy Verified 03/04/23 13:50 Home Medications Medication Instructions Recorded Confirmed Last Taken Type brexpiprazole 3 mg tablet (Rexulti) 3 mg PO QAM 03/06/23 03/06/23 Unknown History dextroamphetamine-amphetamine 20 1 tab PO QPM 03/06/23 03/06/23 Unknown History mg tablet lisdexamfetamine 70 mg capsule 70 mg PO DAILY 03/06/23 03/06/23 Unknown History (Vyvanse) lorazepam 1 mg tablet 1 mg PO BID PRN 03/06/23 03/06/23 Unknown History nortriptyline 50 mg capsule 100 mg PO BEDTIME 03/06/23 03/06/23 Unknown History zolpidem 10 mg tablet 10 mg PO BEDTIME PRN 03/06/23 03/06/23 Unknown History Exam Exam Date and Time: June 14, 2023 0646 Height,Weight and Vital Signs: Height 5 ft 9 in Weight 99.79 kg Last Vital Signs Temp 97.2 F 06/14/23 06:24 Pulse 104 H 06/14/23 06:24 Resp 12 06/14/23 06:24 BP 131/95 H 06/14/23 06:24 Pulse Ox 97 06/14/23 06:24 O2 Del Method Room Air 06/14/23 06:24 Airway Mallampati Class: II TM Dist: >3cm Neck ROM: Full Heart: rrr Lungs: cta Assessment and Plan Assessment Anesthesia Assessment: Anesthesia Plan Discussed and Chart Reviewed Final Anesthetic Review Family History of Problems with Anesthesia: No History of Problems with Anesthesia: No NPO: Yes ASA Class: III Final Preanesthetic Review: No Changes in Pt Med Stat, Meds/Allgs Chart Reviewed and Consent Obtained/Reviewed Patient Risk: Intermediate Procedure Risk: Intermediate Anesthetic Plan Anesthetic Plan: GA Disposition: Standard PACU
--- NOTE | 2023-06-14 07:07 | MHC.SHP ---
Pre-Procedural Eval Section A Date of Service: 06/14/23 The patient is an INPATIENT: No Changes since office visit: Yes Cold of Flu in the past 2 weeks, Yes New Medical Problems, Yes Changes in Medication and Yes Patient answered all questions The History & Physical has been completed within 30 days and I have reviewed it.: Yes Section B Chief Complaint: depression Allergies: Allergies Allergy/AdvReac Type Severity Reaction Status Date / Time No Known Allergies Allergy Verified 03/04/23 13:50 Plan I have reviewed the history and physical and performed a pertinent physical examination on my patient. No changes have occurred unless specified. Time Spent With Patient Time: Total time managing care of this patient today ____ minutes.
--- NOTE | 2023-06-14 07:07 | HO.ECTPROC ---
ECT Procedure Note Diagnosis/Treatment Date of Service: 06/14/23 Diagnosis: Major Depressive Disorder Previous ECT Date: 05/29/23 Current Treatment Number: Other (16) Treatment: Maintenance Interval Clinical Notes: The patient had ECT 2 weeks ago, since then he reported increased irritability since the regular series was finished. No side effects with the previous ECT. ECT done as usual, no complications. Time: Total time managing care of this patient today __30__ minutes. ECT Settings Device: THYMATRON DGx Electrode Placement: Rt temporal/ Lt frontal Program/Pulse Width: 0.50 Energy Percent: 100 Seizure Duration By EEG (in seconds): 8 By Motor Observation (in seconds): 28 Medications Administration General Anesthetic: Methohexital (150) Muscle Relaxant: Succinylcholine (140) Ancillary Medications Analgesics: Torodol - Pre ECT Anti-emetics: Zofran - Pre ECT Cardiovascular Medications: Glycopyrrolate (0.2) Miscillaneous Medications: Propofol (30 after procedure) Airway Management Airway Management: LMA Treatment Recommendations No Changes Recommended: No change Pt Tolerated Procedure w/o Issue: Yes
[2023-06-14 07:30] VITALS: BP 138/96; PULSE 110; RESP 21; TEMP 36.9; O2SAT 94
[2023-06-14 07:35] VITALS: BP 128/88; PULSE 111; RESP 14; O2SAT 95
[2023-06-14 07:40] VITALS: BP 124/85; PULSE 98; RESP 14; O2SAT 95
[2023-06-14 07:45] VITALS: BP 124/83; PULSE 98; RESP 14; O2SAT 95
[2023-06-14 08:00] VITALS: BP 119/83; PULSE 97; RESP 16; TEMP 36.9; O2SAT 96
== END 2023-06-14 08:29 | disposition home or self-care (01) ==
PROVIDERS: PCP Family Medicine; Visit Provider Psychiatry & Neurology Psychiatry
PROC: (CPT 90870; principal; 2023-06-14 08:00)
DX: F33.2 Major depressive disorder, recurrent severe without psychotic features (principal); R45.4 Irritability and anger; F41.1 Generalized anxiety disorder; F90.9 Attention-deficit hyperactivity disorder, unspecified type; M54.12 Radiculopathy, cervical region; F17.210 Nicotine dependence, cigarettes, uncomplicated; Z79.899 Other long term (current) drug therapy
CPT/HCPCS: 90870; J0330; J1885; J2405

== ENCOUNTER → 2023-06-14 06:06 | Outpatient (BNV) | payer OTHER, SELFPAY | PROVIDERS: PCP Family Medicine; Visit Provider Psychiatry & Neurology Psychiatry | DX: F33.3 Major depressive disorder, recurrent, severe with psychotic symptoms (principal) | CPT/HCPCS: 90870 ==

== ENCOUNTER 2023-07-05 08:06 | Day surgery (SDC) | payer MEDICARE, MEDICAID, SELFPAY ==
--- NOTE | 2023-07-05 07:48 | MHC.SHP ---
Pre-Procedural Eval Section A Date of Service: 07/05/23 The patient is an INPATIENT: No Changes since office visit: Yes Changes in Medication and Yes Patient answered all questions; No Cold of Flu in the past 2 weeks and No New Medical Problems The History & Physical has been completed within 30 days and I have reviewed it.: No Section B Chief Complaint: Major depressive disorder, recurrent, severe with Details of Present Illness: recurrent depression some improvement with ect Relevant Social History: Other (specify) (marijuana) Present Medications: see Short Stay Collaborative assessment Allergies: Allergies Allergy/AdvReac Type Severity Reaction Status Date / Time No Known Allergies Allergy Verified 03/04/23 13:50 Review of Systems Sugical H&P ROS: Yes, Specify: Neurological (lu intermittent migraine) and Psychiatric (some dep sx improved no si) Exam Surgical H&P Exam: Normal: HEENT, Normal: Heart and Normal: Lungs Plan Diagnosis/Plan: Unchanged I have reviewed the history and physical and performed a pertinent physical examination on my patient. No changes have occurred unless specified. Time Spent With Patient Time: Total time managing care of this patient today ____ minutes.
[2023-07-05 08:30] VITALS: PULSE 93; RESP 20; TEMP 36.1; O2SAT 95; BMI 35.0
--- NOTE | 2023-07-05 10:45 | HO.ECTPROC ---
ECT Procedure Note Diagnosis/Treatment Date of Service: 07/07/23 Diagnosis: Major Depressive Disorder Treatment: Maintenance Interval Clinical Notes: Patient states he is generally feeling less depressed feels ECT has been helpful no complaints of side effects Time: Total time managing care of this patient today ____ minutes. ECT Settings Device: THYMATRON DGx Program/Pulse Width: 0.50 Energy Percent: 100 Seizure Duration By EEG (in seconds): 40 Medications Administration General Anesthetic: Methohexital (130) Muscle Relaxant: Succinylcholine (140) Ancillary Medications Analgesics: Torodol - Pre ECT (30) Anti-emetics: Zofran - Pre ECT (4) Cardiovascular Medications: Glycopyrrolate Airway Management Airway Management: LMA Treatment Recommendations No Changes Recommended: No change Notes: f/u tx 3 wks will see outpt to review Pt Tolerated Procedure w/o Issue: Yes
[2023-07-05 10:50] VITALS: BP 139/97; PULSE 103; RESP 18; TEMP 36.4; O2SAT 97
[2023-07-05 10:55] VITALS: BP 140/86; PULSE 93; RESP 15; O2SAT 97
[2023-07-05 11:00] VITALS: BP 136/87; PULSE 94; RESP 16; O2SAT 95
[2023-07-05 11:05] VITALS: BP 123/89; PULSE 99; RESP 16; O2SAT 95
[2023-07-05 11:22] VITALS: BP 133/83; PULSE 94; RESP 18; TEMP 36.1; O2SAT 95
== END 2023-07-05 11:35 | disposition home or self-care (01) ==
PROVIDERS: PCP Family Medicine; Visit Provider Psychiatry & Neurology Psychiatry
PROC: (CPT 90870; principal; 2023-07-05 10:30)
DX: F33.2 Major depressive disorder, recurrent severe without psychotic features (principal); F41.1 Generalized anxiety disorder; Z79.899 Other long term (current) drug therapy
CPT/HCPCS: 90870; J0330; J1805; J1885; J2405; J2704

== ENCOUNTER → 2023-07-05 08:06 | Outpatient (BNV) | payer MEDICARE, MEDICAID, SELFPAY | PROVIDERS: PCP Family Medicine; Visit Provider Psychiatry & Neurology Psychiatry | DX: F33.3 Major depressive disorder, recurrent, severe with psychotic symptoms (principal) | CPT/HCPCS: 90870 ==

== ENCOUNTER 2023-07-24 06:07 | Day surgery (SDC) | payer MEDICARE, SELFPAY ==
[2023-07-24 06:42] VITALS: BP 108/73; PULSE 94; RESP 11; TEMP 36.7; O2SAT 96; BMI 32.5
--- NOTE | 2023-07-24 06:44 | HO.ANESPROP2 ---
[facility] Active Problems Active Problems: All Active Problems (Updated 03/06/23 @ 17:34 by Servando Del Rosario MD) ADHD (Acute) Injury of right hand (Acute) Pre-op evaluation (Acute) Depression, major, severe recurrence (Acute) Past Medical History Medical History ADHD Cervical radiculopathy at C7 Injury of right hand Family History Family history of problems with anesthesia: No Surgical History History of Problems with Anesthesia: No Social History Social History Patient Tobacco Use Status: Current everyday Tobacco user Tobacco use type: Cigarette Cigarette Packs Per Day: 1 Cigarettes Per Day: 20.0 Advance Directives: No Advance Directives Information Provided: Yes Meds Allergies Allergy/AdvReac Type Severity Reaction Status Date / Time No Known Allergies Allergy Verified 03/04/23 13:50 Home Medications Medication Instructions Recorded Confirmed Last Taken Type brexpiprazole 3 mg tablet (Rexulti) 3 mg PO QAM 03/06/23 03/06/23 Unknown History dextroamphetamine-amphetamine 20 1 tab PO QPM 03/06/23 03/06/23 Unknown History mg tablet lisdexamfetamine 70 mg capsule 70 mg PO DAILY 03/06/23 03/06/23 Unknown History (Vyvanse) lorazepam 1 mg tablet 1 mg PO BID PRN 03/06/23 03/06/23 Unknown History nortriptyline 50 mg capsule 100 mg PO BEDTIME 03/06/23 03/06/23 Unknown History zolpidem 10 mg tablet 10 mg PO BEDTIME PRN 03/06/23 03/06/23 Unknown History Exam Height,Weight and Vital Signs: Height 5 ft 9 in Weight 99.79 kg Last Vital Signs Temp 98.1 F 07/24/23 06:42 Pulse 94 07/24/23 06:42 Resp 11 L 07/24/23 06:42 BP 108/73 07/24/23 06:42 Pulse Ox 96 07/24/23 06:42 O2 Del Method Room Air 07/24/23 06:42 Airway Mallampati Class: II TM Dist: >3cm Neck ROM: Full Heart: rrr Lungs: cta Assessment and Plan Assessment Anesthesia Assessment: Anesthesia Plan Discussed and Chart Reviewed Final Anesthetic Review Family History of Problems with Anesthesia: No History of Problems with Anesthesia: No NPO: Yes ASA Class: III Final Preanesthetic Review: No Changes in Pt Med Stat, Meds/Allgs Chart Reviewed and Consent Obtained/Reviewed Patient Risk: Intermediate Procedure Risk: Intermediate Anesthetic Plan Anesthetic Plan: GA Disposition: Standard PACU
--- NOTE | 2023-07-24 07:04 | MHC.SHP ---
Pre-Procedural Eval Section A Date of Service: 07/24/23 The patient is an INPATIENT: No Changes since office visit: No Cold of Flu in the past 2 weeks, No New Medical Problems, No Changes in Medication and No Patient answered all questions The History & Physical has been completed within 30 days and I have reviewed it.: Yes Section B Chief Complaint: depression Details of Present Illness: hX OF DEPRESSION, IMPROVES WITH ECT Relevant Family History (Specify if Yes): Yes Relevant Social History: None Present Medications: see Short Stay Collaborative assessment Medical History: No relevant PMH History of Previous Operations: Relevant previous surgery/procedure and date(s) Allergies: Allergies Allergy/AdvReac Type Severity Reaction Status Date / Time No Known Allergies Allergy Verified 03/04/23 13:50 Review of Systems Sugical H&P ROS: Negative: Constitution, Cardiovascular, Respiratory, Neurological, Psychiatric, Hem-Onc, Allergic/Immunologic, Gastrointestinal, Genitourinary, Musculoskeletal, Integumentary, Endocrine and Eyes/Ears/Nose/Throat Exam Surgical H&P Exam: Normal: HEENT, Normal: Heart, Normal: Lungs, Normal: Extremities, Normal: Abdomen, Normal: Skin and Normal: Neurological Plan Diagnosis/Plan: Unchanged I have reviewed the history and physical and performed a pertinent physical examination on my patient. No changes have occurred unless specified. Time Spent With Patient Time: Total time managing care of this patient today __20__ minutes.
--- NOTE | 2023-07-24 07:17 | HO.ECTPROC ---
ECT Procedure Note Diagnosis/Treatment Date of Service: 07/24/23 Diagnosis: Major Depressive Disorder Previous ECT Date: 07/05/23 Treatment: Maintenance Interval Clinical Notes: The patient denies exacerbation of depression, compliant with treatment. Today he complained of mild headache and he asked for Tylenol after the procedure. No side effects with previous ECT. ECT done as usual, no complications. Woke up well, no confusion. Time: Total time managing care of this patient today _30___ minutes. ECT Settings Device: THYMATRON DGx Electrode Placement: Rt temporal/ Lt frontal Program/Pulse Width: 0.50 Energy Percent: 100 Seizure Duration By EEG (in seconds): 24 By Motor Observation (in seconds): 8 Medications Administration General Anesthetic: Methohexital (150) Muscle Relaxant: Succinylcholine (140) Ancillary Medications Analgesics: Torodol - Pre ECT Anti-emetics: Zofran - Pre ECT Cardiovascular Medications: Glycopyrrolate Miscillaneous Medications: Propofol Airway Management Airway Management: LMA Treatment Recommendations No Changes Recommended: No change Pt Tolerated Procedure w/o Issue: Yes
[2023-07-24 07:23] VITALS: BP 114/60; PULSE 88; RESP 16; TEMP 36.5; O2SAT 94
[2023-07-24 07:28] VITALS: BP 102/61; PULSE 88; RESP 16; O2SAT 95
[2023-07-24 07:33] VITALS: BP 106/57; PULSE 87; RESP 14; O2SAT 95
[2023-07-24 07:38] VITALS: BP 103/59; PULSE 94; RESP 13; O2SAT 97
[2023-07-24] MEDS: Acetaminophen 325 MG TABLET 650 MG PO (07:50)
[2023-07-24 07:53] VITALS: BP 144/77; PULSE 89; RESP 16; O2SAT 95
== END 2023-07-24 08:40 | disposition home or self-care (01) ==
PROVIDERS: PCP Family Medicine; Visit Provider Psychiatry & Neurology Psychiatry
PROC: (CPT 90870; principal; 2023-07-24 07:30)
DX: F33.2 Major depressive disorder, recurrent severe without psychotic features (principal); F41.1 Generalized anxiety disorder; G43.809 Other migraine, not intractable, without status migrainosus; Z79.899 Other long term (current) drug therapy; F12.90 Cannabis use, unspecified, uncomplicated
CPT/HCPCS: 90870; J0330; J1885; J2405; J2704

== ENCOUNTER → 2023-07-24 06:07 | Outpatient (BNV) | payer OTHER, SELFPAY | PROVIDERS: PCP Family Medicine; Visit Provider Psychiatry & Neurology Psychiatry | DX: F33.3 Major depressive disorder, recurrent, severe with psychotic symptoms (principal) | CPT/HCPCS: 90870 ==

== ENCOUNTER 2023-09-02 06:02 | Day surgery (SDC) | payer OTHER, SELFPAY ==
--- NOTE | 2023-09-02 | ECG_ITS ---
Test Reason : post ect Blood Pressure : / mmHG Vent. Rate : 090 BPM Atrial Rate : 090 BPM P-R Int : 172 ms QRS Dur : 116 ms QT Int : 378 ms P-R-T Axes : 025 007 011 degrees QTc Int : 462 ms Normal sinus rhythm Normal EKG When compared with ECG of 04-MAR-2023 14:19, No significant change was found Referred By: Олег Delgadillo Electronically Signed By:GLENROY MERCHANT
[2023-09-02 06:21] VITALS: BP 126/86; PULSE 96; RESP 18; TEMP 36.1; O2SAT 97; BMI 33.4
--- NOTE | 2023-09-02 06:59 | P.CONAN_ITS ---
[facility] Active Problems Active Problems: All Active Problems (Updated 03/06/23 @ 17:34 by Servando Del Rosario MD) ADHD (Acute) Injury of right hand (Acute) Pre-op evaluation (Acute) Depression, major, severe recurrence (Acute) Past Medical History Medical History ADHD Cervical radiculopathy at C7 Injury of right hand Family History Family history of problems with anesthesia: No Surgical History History of Problems with Anesthesia: No Social History Social History Patient Tobacco Use Status: Current everyday Tobacco user Tobacco use type: Cigarette Cigarette Packs Per Day: 1 Cigarettes Per Day: 20.0 Advance Directives: No Advance Directives Information Provided: Yes Meds Allergies Allergy/AdvReac Type Severity Reaction Status Date / Time No Known Allergies Allergy Verified 03/04/23 13:50 Home Medications Medication Instructions Recorded Confirmed Last Taken Type brexpiprazole 3 mg tablet (Rexulti) 3 mg PO QAM 03/06/23 03/06/23 Unknown History dextroamphetamine-amphetamine 20 1 tab PO QPM 03/06/23 03/06/23 Unknown History mg tablet lisdexamfetamine 70 mg capsule 70 mg PO DAILY 03/06/23 03/06/23 Unknown History (Vyvanse) lorazepam 1 mg tablet 1 mg PO BID PRN 03/06/23 03/06/23 Unknown History nortriptyline 50 mg capsule 100 mg PO BEDTIME 03/06/23 03/06/23 Unknown History zolpidem 10 mg tablet 10 mg PO BEDTIME PRN 03/06/23 03/06/23 Unknown History Exam Height,Weight and Vital Signs: Height 5 ft 8 in Weight 99.79 kg Last Vital Signs Temp 97 F 09/02/23 06:21 Pulse 96 09/02/23 06:21 Resp 18 09/02/23 06:21 BP 126/86 09/02/23 06:21 Pulse Ox 97 09/02/23 06:21 O2 Del Method Room Air 09/02/23 06:21 Airway Mallampati Class: III TM Dist: >3cm Neck ROM: Full Heart: rrr Lungs: cta Assessment and Plan Assessment Anesthesia Assessment: Anesthesia Plan Discussed and Chart Reviewed Final Anesthetic Review Family History of Problems with Anesthesia: No History of Problems with Anesthesia: No NPO: Yes ASA Class: III Final Preanesthetic Review: No Changes in Pt Med Stat, Meds/Allgs Chart Reviewed and Consent Obtained/Reviewed Patient Risk: Intermediate Procedure Risk: Intermediate Anesthetic Plan Anesthetic Plan: GA Disposition: Standard PACU
--- NOTE | 2023-09-02 07:04 | MHC.SHP ---
Pre-Procedural Eval Section A Date of Service: 09/02/23 The patient is an INPATIENT: No Changes since office visit: No Cold of Flu in the past 2 weeks, No New Medical Problems, No Changes in Medication and No Patient answered all questions The History & Physical has been completed within 30 days and I have reviewed it.: Yes Section B Chief Complaint: depression Details of Present Illness: The patient reported that he has started Ketamine lozanges for depression. No changes, feels euthymic. Relevant Family History (Specify if Yes): No Relevant Social History: None Present Medications: None Medical History: No relevant PMH History of Previous Operations: No relevant previous surgery Allergies: Allergies Allergy/AdvReac Type Severity Reaction Status Date / Time No Known Allergies Allergy Verified 03/04/23 13:50 Review of Systems Sugical H&P ROS: Negative: Constitution, Cardiovascular, Respiratory, Neurological, Psychiatric, Hem-Onc, Allergic/Immunologic, Gastrointestinal, Genitourinary, Musculoskeletal, Integumentary, Endocrine and Eyes/Ears/Nose/Throat Exam Surgical H&P Exam: Normal: HEENT, Normal: Heart, Normal: Lungs, Normal: Extremities, Normal: Abdomen, Normal: Skin and Normal: Neurological Plan Diagnosis/Plan: Unchanged I have reviewed the history and physical and performed a pertinent physical examination on my patient. No changes have occurred unless specified. Time Spent With Patient Time: Total time managing care of this patient today __20__ minutes.
--- NOTE | 2023-09-02 07:22 | HO.ECTPROC ---
ECT Procedure Note Diagnosis/Treatment Date of Service: 09/02/23 Diagnosis: Major Depressive Disorder Treatment: Maintenance Interval Clinical Notes: The patient reported euthymia, he is taking Ketamine lozanges at home 60 mg. He reported no side effects. No side effects with the previous ECT. ECT done as usual, a very short seizure not detected by the computer but clinical seizure for 14s. Woke up without any problems. Time: Total time managing care of this patient today _30___ minutes. ECT Settings Device: THYMATRON DGx Electrode Placement: Bifrontal Program/Pulse Width: 0.50 Energy Percent: 100 Seizure Duration By EEG (in seconds): 0 (but seizure activity seen until 16s) By Motor Observation (in seconds): 14 Medications Administration General Anesthetic: Methohexital (130) Muscle Relaxant: Succinylcholine (140) Ancillary Medications Analgesics: Torodol - Pre ECT Anti-emetics: Zofran - Pre ECT Miscillaneous Medications: Propofol (30) Airway Management Airway Management: LMA Treatment Recommendations No Changes Recommended: No change Pt Tolerated Procedure w/o Issue: Yes
[2023-09-02 07:28] VITALS: BP 134/86; PULSE 93; RESP 16; TEMP 36.2; O2SAT 94
[2023-09-02 07:33] VITALS: BP 118/83; PULSE 95; RESP 16; O2SAT 92
[2023-09-02 07:38] VITALS: BP 126/82; PULSE 88; RESP 16; O2SAT 96
[2023-09-02 07:39] LABS: MANUAL DIFF FLAG NO
[2023-09-02 07:43] VITALS: BP 125/79; PULSE 83; RESP 16; O2SAT 96
[2023-09-02 07:43] LABS: Basophils Absolute Auto 0.1 X10*3/uL (0.0-0.2); Basophils Percent Auto 1.1 % (0-2); Eosinophils Absolute Auto 0.3 X10*3/uL (0.0-0.4); Eosinophils Percent Auto 2.6 % (0-4); Hematocrit 44.1 % (42.0-52.0); Hemoglobin 14.6 g/dl (14.0-18.0); Imm Gran Abs Auto 0.11 X10*3/uL (0.00-0.03); Lymphocytes Absolute Auto 2.9 X10*3/uL (1.2-4.9); Lymphocytes Percent Auto 26.2 % (20-40); Mean Corpuscular HGB Conc 33.1 g/dl (31.0-36.0); Mean Corpuscular Hemoglobin 30.4 pg (27.0-33.0); Mean Corpuscular Volume 91.7 fL (80.0-98.0); Mean Platelet Volume 10.3 fL (9.4-12.4); Monocytes Percent Auto 9.5 % (2-11); Neutrophils Absolute Auto 6.5 x10*3/uL (2.0-8.3); Neutrophils Percent Auto 59.6 % (45-73); Platelet Count 221 X10*3/uL (160-400); Red Blood Count 4.81 X10*6/uL (4.60-5.80); Red Cell Distribution Width 13.9 % (11.0-16.0); White Blood Count 10.9 X10*3/uL (4.8-10.8)
[2023-09-02 07:59] VITALS: BP 137/96; PULSE 89; RESP 18; TEMP 36.4; O2SAT 96
[2023-09-02 08:01] LABS: Alanine Aminotransferase 23 U/L (0-40); Albumin Level 4.3 g/dL (3.5-5.0); Alkaline Phosphatase 85 U/L (39-117); Anion Gap 15 (12-20); Aspartate Amino Transferase 14 U/L (5-37); Bilirubin Total 0.3 mg/dL (0.0-1.0); Blood Urea Nitrogen 14 mg/dL (9-16); Carbon Dioxide 23 mmol/L (22-29); Chloride 105 mmol/L (96-108); Estimated Glomerular Filt Rate > 60; Glucose Fasting 114 mg/dL (60-99); Potassium 4.1 mmol/L (3.3-5.1); Sodium 139 mmol/L (135-145)
== END 2023-09-02 08:32 | disposition home or self-care (01) ==
PROVIDERS: PCP Family Medicine; Visit Provider Psychiatry & Neurology Psychiatry
PROC: (CPT 90870; principal; 2023-09-02 08:00)
DX: F33.2 Major depressive disorder, recurrent severe without psychotic features (principal); F41.1 Generalized anxiety disorder; F90.9 Attention-deficit hyperactivity disorder, unspecified type; Z79.899 Other long term (current) drug therapy; F12.90 Cannabis use, unspecified, uncomplicated; F17.210 Nicotine dependence, cigarettes, uncomplicated
CPT/HCPCS: 36415; 80053; 85025; 90870; 93005; J0330; J1885; J2405; J2704

== ENCOUNTER → 2023-09-02 06:02 | Outpatient (BNV) | payer OTHER, SELFPAY | PROVIDERS: PCP Family Medicine; Visit Provider Psychiatry & Neurology Psychiatry | DX: F33.3 Major depressive disorder, recurrent, severe with psychotic symptoms (principal) | CPT/HCPCS: 90870 ==

== ENCOUNTER → 2023-09-02 07:24 | Outpatient (BNV) | payer OTHER, SELFPAY | PROVIDERS: PCP Family Medicine; Visit Provider Internal Medicine | DX: Z51.81 Encounter for therapeutic drug level monitoring (principal); F33.3 Major depressive disorder, recurrent, severe with psychotic symptoms | CPT/HCPCS: 93010 ==

== ENCOUNTER 2023-10-05 18:12 | Inpatient (IN) | payer OTHER, SELFPAY ==
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
--- NOTE | ~2023-10-05 | XR_ITS ---
EXAMINATION: XR CHEST CLINICAL INFORMATION: Chest discomfort. Smoking history. COMPARISON: Previous chest x-ray 10/05/2023 TECHNIQUE: 2 views of the chest were obtained. FINDINGS: No significant abnormality is noted involving the heart, lungs, mediastinum, bony thorax or soft tissues. Surgical changes to the lower cervical spine. XR/XR chest 2V IMPRESSION: No evidence for acute disease in the chest.
[2023-10-05 18:24] VITALS: BP 141/98; PULSE 101; RESP 18; TEMP 36.4; O2SAT 98; BMI 34.8
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
--- OUTSIDE RECORDS SUMMARY | 2023-10-05 18:37 | XMS_ITS | Continuity of Care Document ---
Author Name Unknown Organization [facility] y Address [address] [place], [place] [address]alexi webb, [address] [place] [address]- Care Team Providers Care Roof Shingler Name Role Phone Poncho Self MD Primary Care Physician [phone] Encounter [facility] ACCT R [id number] Date(s): 01/18/21 - 04/13/[address], [address] [place], [place] [address] Attending Physician: Olu LUZ, Christen Ruelas Referring Physician: Poncho Self MD Allergies, Adverse Reactions, Alerts Substance Reaction Severity Status Vicodin Active Medications escitalopram 10 mg oral tablet 1 tablet = 10 mg, By Mouth, Daily, # 30 tablet, 0 Refills, Maintenance, 11/08/19 4:23:00 EDT, Tablet Start Date: 11/08/19 Status: Ordered meclizine 25 mg oral tablet 1 tablet = 25 mg, By Mouth, 3 times a day, PRN for dizziness, # 60 tablet, 0 Refills, Maintenance, 11/08/19 12:13:00 EDT, Tablet, [id number], 175, cm, 11/08/19 9:00:00 EDT, Height, 101.2, kg, 11/08/19 9:00:00 EDT, Dry Weight Start Date: 11/08/19 Status: Ordered ondansetron 4 mg oral tablet, disintegrating = 4 mg, By Mouth, Every 6 hours, PRN Nausea & Vomiting, # 20 tablet, 0 Refills, Maintenance, 11/08/19 12:13:00 EDT, Tablet, [facility], 175, cm, 11/08/19 9:00:00 EDT, Height, 101.2, kg, 11/08/19 9:00:00 EDT, Dry Weight Start Date: 11/08/19 Stop Date: 11/13/19 Status: Ordered Suboxone 8 mg-2 mg Sublingual Film 1 film, Sublingual, Daily, dissolve under the tongue, 0 Refills, Maintenance, 11/08/19 4:23:00 EDT,Film Start Date: 11/08/19 Status: Ordered
--- OUTSIDE RECORDS SUMMARY | 2023-10-05 18:37 | XMS_ITS | Continuity of Care Document ---
Author Name Unknown Organization [facility] Address [address] [place] [address], [address] [place] [address]- Care Team Providers Care Emergency Medicine Specialist Name Role Phone Cinthia LUZ, Brian P Primary Care Physician Encounter [facility] Date(s): 03/26/22 - 04/02/22 [facility] [address] [place] [address] Drive, [address] [place], [place] [address] Attending Physician: Sravan LUZ, Andrez Gale Referring Physician: Gopi Alcaraz DO Allergies, Adverse Reactions, Alerts Substance Reaction Severity Status Vicodin Active Medications BuSpar 10 mg oral tablet 1, tablet, By Mouth, 3 times a day, # 270 tablet, Refills 0, Maintenance, 08/04/21 21:46:00 EST, Partial fill upon patient request if the prescription is for a schedule II opioid drug. Start Date: 08/04/21 Status: Ordered escitalopram 10 mg oral tablet 1 tablet = 10 mg, By Mouth, Daily, # 30 tablet, 0 Refills, Maintenance, 11/08/19 4:23:00 EDT, Tablet Start Date: 11/08/19 Status: Ordered FLUoxetine (Eqv-Prozac) 10 mg oral tablet 1 tablet = 10 mg, By Mouth, Daily, 0 Refills, Maintenance, 08/04/21 21:46:00 EST, Partial fill uponpatient request if the prescription is for a schedule II opioid drug. Start Date: 08/04/21 Status: Ordered Lorazepam 0 Refills, Maintenance, 08/04/21 21:46:00 EST, Partial fill upon patient request if the prescription is for a schedule II opioid drug. Start Date: 08/04/21 Status: Ordered meclizine 25 mg oral tablet 1 tablet = 25 mg, By Mouth, 3 times a day, PRN for dizziness, # 60 tablet, 0 Refills, Maintenance, 11/08/19 12:13:00 EDT, Tablet, [id number], 175, cm, 11/08/19 9:00:00 EDT, Height, 101.2, kg, 11/08/19 9:00:00 EDT, Dry Weight Start Date: 11/08/19 Status: Ordered ondansetron 4 mg oral tablet, disintegrating = 4 mg, By Mouth, Every 6 hours, PRN Nausea & Vomiting, # 20 tablet, 0 Refills, Maintenance, 11/08/19 12:13:00 EDT, Tablet, [id number], 175, cm, 11/08/19 9:00:00 EDT, Height, 101.2, kg, 11/08/19 9:00:00 EDT, Dry Weight Start Date: 11/08/19 Stop Date: 11/13/19 Status: Ordered Rexulti By Mouth, Daily, 0 Refills, Maintenance, 08/04/21 21:46:00 EST, Partial fill upon patient request if the prescription is for a schedule II opioid drug. Start Date: 08/04/21 Status: Ordered Suboxone 8 mg-2 mg Sublingual Film 1 film, Sublingual, Daily, dissolve under the tongue, 0 Refills, Maintenance, 11/08/19 4:23:00 EDT,Film Start Date: 11/08/19 Status: Ordered Vyvanse By Mouth, Daily in AM, 0 Refills, Maintenance, 08/04/21 21:45:00 EST, Partial fill upon patient request if the prescription is for a schedule II opioid drug. Start Date: 08/04/21 Status: Ordered Zolpidem Daily at bedtime, 0 Refills, Maintenance, 08/04/21 21:47:00 EST, Partial fill upon patient request if the prescription is for a schedule II opioid drug. Start Date: 08/04/21 Status: Ordered Problem List Condition Effective Dates Status Health Status Inform ant Obese class I(Confirmed) Active Vital Signs Most recent to oldest [Reference Range]: 1 Height 175 cm (03/26/22 9:04 AM) Weight 104.5 kg (03/26/22 9:04 AM) Body Mass Index [18.5-24.99] 34.12 *>HHI* (03/26/22 9:04 AM)
--- OUTSIDE RECORDS SUMMARY | 2023-10-05 18:37 | XMS_ITS | Continuity of Care Document ---
Author Name Unknown Organization [facility] Address [address] [place], [place] [address]alexi webb, [address] [place] [address]- Care Team Providers Care Ceramic Painter Name Role Phone Poncho Self MD Primary Care Physician Encounter [facility] Date(s): 03/21/21 - 04/20/21 [facility] [address] [place] [address] Drive, [address] [place], [place] [address] Attending Physician: John Chambers Admitting Physician: Admtr, John Referring Physician: Admtr, Ar8 Allergies, Adverse Reactions, Alerts Substance Reaction Severity [...] 0 Refills, Maintenance, 11/08/19 12:13:00 EDT, Tablet, [facility], 175, cm, 11/08/19 9:00:00 EDT, Height, 101.2, kg, 11/08/19 9:00:00 EDT, Dry Weight Start Date: 11/08/19 Status: Ordered ondansetron 4 mg oral tablet, disintegrating = 4 mg, By Mouth, Every 6 hours, PRN Nausea & Vomiting, # 20 tablet, 0 Refills, Maintenance, 11/08/19 12:13:00 EDT, Tablet, [facility], 175, cm, 11/08/19 9:00:00 EDT, Height, 101.2, kg, 11/08/19 9:00:00 EDT, Dry Weight Start Date: 11/08/19 Stop Date: 11/13/19 Status: Ordered Suboxone 8 mg-2 mg Sublingual Film 1 film, Sublingual, Daily, dissolve under the tongue, 0 Refills, Maintenance, 11/08/19 4:23:00 EDT,Film Start Date: 11/08/19 Status: Ordered
--- OUTSIDE RECORDS SUMMARY | 2023-10-05 18:38 | XMS_ITS | Continuity of Care Document ---
Author Name Unknown Organization [facility] ter Address [address] [place] [address]- Care Team Providers Care Sports Marketing Coordinator Name Role Phone Brian Vicente MD Primary Care Physician Encounter [facility] Date(s): 04/10/22 - 04/10/[address] [address] Discharge Disposition: A-D/C Home Attending Physician: Andrez Hinson MD Admitting Physician: Andrez Hinson MD Referring Physician: Andrez Hinson MD Allergies, Adverse Reactions, Alerts Substance Reaction Severity Status Vicodin Active Medications BuSpar 10 mg oral tablet 1, tablet, By Mouth, 3 times a day, # 270 tablet, Refills 0, Maintenance, 08/04/21 21:46:00 EST, Partial fill upon patient request if the prescription is for a schedule II opioid drug. Start Date: 08/04/21 Status: Ordered Celexa By Mouth, Daily, 0 Refills, Maintenance, 04/06/22 10:58:00 EDT, Partial fill upon patient request if the prescription is for a schedule II opioid drug. Start Date: 04/06/22 Status: Ordered escitalopram 10 mg oral tablet 1 tablet = 10 mg, By Mouth, Daily, # 30 tablet, 0 Refills, Maintenance, 11/08/19 4:23:00 EDT, Tablet Start Date: 11/08/19 Status: Ordered FENTanyl Inj 25 mcg, Injection, IV Push Slowly, Every 5 minutes for 8 doses/times, in PACU ONLY, Hold for: RR less than 8 or over-sedation, PRN for Pain , Moderate, Repeat until Pain Score is less than or equal to 2, Routine, 04/10/22 8:54:00 EDT, Stop date Limite... Start Date: 04/10/22 Stop Date: 04/10/22 Status: Discontinued Lorazepam 0 Refills, Maintenance, 08/04/21 21:46:00 EST, Partial fill upon patient request if the prescription is for a schedule II opioid drug. Start Date: 08/04/21 Status: Ordered oxyCODONE 5 mg oral tablet 5 mg, 1, tablet, By Mouth, Every 4 hours, PRN, # 42 tablet, Refills 0, Tot. Refills 0, Maintenance,Pain , Moderate, 04/10/22 11:27:00 EDT, Route to Pharmacy Electronically, [facility], Partial fill upon patient request if the prescription... Start Date: 04/10/22 Status: Ordered Rexulti By Mouth, Daily, 0 Refills, Maintenance, 08/04/21 21:46:00 EST, Partial fill upon patient request if the prescription is for a schedule II opioid drug. Start Date: 08/04/21 Status: Ordered tiZANidine 4 mg oral tablet 4 mg, 1, tablet, By Mouth, 3 times a day, PRN, # 90 tablet, Refills 0, Tot. Refills 0, Maintenance,Spasm, 04/10/22 11:27:00 EDT, Route to Pharmacy Electronically, [facility], Partial fillupon patient request if the prescription is for a s... Start Date: 04/10/22 Status: Ordered Vyvanse By Mouth, Daily in [...] Status Inform ant Obese class I(Confirmed) Active Results Radiology Reports * Exam Date Time Procedure Performing Provider Status 04/10/22 9:41 AM C-Arm > 1 Hour Marco Mtz; Auth (Ve rified) Notes: (C-Arm > 1 Hour) Reason For Exam: Ant. Cervical Arthoplasty C6-C7 RESULT: C-Arm > 1 Hour Cervical Spine 3 Views or Less, C-Arm > 1 Hour INDICATION: Reason: Ant. Cervical Arthoplasty C6-C7 COMPARISONS: None TECHNIQUE: Fluoroscopy support was provided. There was no radiologist in attendance. FLUOROSCOPY TIME: 16 seconds EXPOSURE: 18.48 mGy TECHNOLOGIST TIME: 1 hour 25 minutes FINDINGS: 6 images were submitted demonstrating cervical disc arthroplasty at what appears to be C6-C7. Please refer to operative note for full details. IMPRESSION: See above. WSN: [id number] Ordering Physician: Andrez Hinson Dictated By: Rangel Lackey MD Dictated Date/Time: 04/10/22 9:44 am Reviewed By: Rangel Lackey MD Signed By: Rangel Lackey MD Signed Date/Time: 04/10/22 9:44 am Transcribed By: ARIN Transcribed Date/Time: 04/10/22 9:43 am * Exam Date Time Procedure Performing Provider Status 04/10/22 9:41 AM Cervical Spine 3 Views or Less Marco Mtz; Auth (Verified) Notes: (Cervical Spine 3 Views or Less) Reason For Exam: Ant. Cervical Arthoplasty C6-C7 RESULT: Cervical Spine 3 Views or Less Cervical Spine 3 Views or Less, C-Arm > 1 Hour INDICATION: Reason: Ant. Cervical Arthoplasty C6-C7 COMPARISONS: None TECHNIQUE: Fluoroscopy support was provided. There was no radiologist in attendance. FLUOROSCOPY TIME: 16 seconds EXPOSURE: 18.48 mGy TECHNOLOGIST TIME: 1 hour 25 minutes FINDINGS: 6 images were submitted demonstrating cervical disc arthroplasty at what appears to be C6-C7. Please refer to operative note for full details. IMPRESSION: See above. WSN: [id number] Ordering Physician: Andrez Hinson Dictated By: Rangel Lackey MD Dictated Date/Time: 04/10/22 9:44 am Reviewed By: Rangel Lackey MD Signed By: Rangel Lackey MD Signed Date/Time: 04/10/22 9:44 am Transcribed By: ARIN Transcribed Date/Time: 04/10/22 9:43 am Vital Signs Most recent to oldest [Reference Range]: 1 2 3 Height 175.26 cm (04/10/22 6:40 AM) 175.26 cm (04/06/22 11:19 AM) Weight 100.61 kg (04/10/22 6:40 AM) 100.61 kg (04/06/22 11:19 AM) Oxygen Saturation [94-100 %] 98 % (04/10/22 11:45 AM) 97 % (04/10/22 11:00 AM) 96 % (04/10/22 10:45 AM) Pulse Rate [55-90 bpm] 21 bpm *L* (04/10/22 6:40 AM) Body Mass Index [18.5-24.99] 32.75 *>HHI* (04/10/22 6:40 AM) 32.75 *>HHI* (04/06/22 11:19 AM) Blood Pressure [90-138/55-84 mm Hg] 113/79mm Hg (04/10/22 11:45 AM) 138/90mm Hg (04/10/22 11:00 AM) 126/89mm Hg (04/10/22 10:45 AM) Respiratory Rate [16-30 br/min] 19 br/min (04/10/22 11:00 AM) 12 br/min *L* (04/10/22 10:45 AM) 15 br/min *L* (04/10/22 10:31 AM) Temperature [96.8-100.4 DegF] 97.2 DegF (04/10/22 11:45 AM) 97.5 DegF (04/10/22 11:00 AM) 97.6 DegF (04/10/22 9:45 AM) Liters per Minute 6 L/min (04/10/22 10:00 AM) 6 L/min (04/10/22 9:45 AM) Mode of Delivery (Oxygen) Room air (04/10/22 11:45 AM) Room air (04/10/22 11:00 AM) Room air (04/10/22 10:30 AM) Blood pressure sites Arm, right (04/10/22 9:45 AM) Arm, right (04/10/22 6:40 AM) Temperature Route Temporal (04/10/22 11:45 AM) Temporal (04/10/22 11:00 AM) Temporal (04/10/22 9:45 AM) Dry Weight 100.61 kg (04/06/22 11:19 AM) Dry Weight Obtained Via Patient/family s tated (04/06/22 11:19 AM)
--- OUTSIDE RECORDS SUMMARY | 2023-10-05 18:38 | XMS_ITS | Continuity of Care Document ---
Author Name Unknown Organization [facility] Address [address] [place] [address] jon, [address] [place] [address]- Care Team Providers Care Dress Cutter Name Role Phone Poncho Self MD Primary Care Physician [phone] Encounter [facility] [place] Date(s): 01/20/20 - 03/12/20 [facility] [address] [place] [address] Drive, [address] [place] [address]- [facility] Attending Physician: Christen Raines MD Referring Physician: Poncho Self MD Allergies, Adverse [...] 0 Refills, Maintenance, 11/08/19 12:13:00 EDT, Tablet, [facility], 175, cm, 11/08/19 9:00:00 EDT, Height, 101.2, kg, 11/08/19 9:00:00 EDT, Dry Weight Start Date: 11/08/19 Status: Ordered ondansetron 4 mg oral tablet, disintegrating = 4 mg, By Mouth, Every 6 hours, PRN Nausea & Vomiting, # 20 tablet, 0 Refills, Maintenance, 11/08/19 12:13:00 EDT, Tablet, [facility], 175, cm, 11/08/19 9:00:00 EDT, Height, 101.2, kg, 11/08/19 9:00:00 EDT, Dry Weight Start Date: 11/08/19 Stop Date: 11/13/19 Status: Ordered Suboxone 8 mg-2 mg Sublingual Film 1 film, Sublingual, Daily, dissolve under the tongue, 0 Refills, Maintenance, 11/08/19 4:23:00 EDT,Film Start Date: 11/08/19 Status: Ordered
--- OUTSIDE RECORDS SUMMARY | 2023-10-05 18:38 | XMS_ITS | Continuity of Care Document ---
Author Name Unknown Organization [facility] Address [address] [place] [address]- Care Team Providers Care Digester Name Role Phone Cinthia LUZ, Brian Sheridan Primary Care Physician Encounter [facility] Date(s): 04/03/22 - 05/03/22 [facility] [address] [place], [place] [address] Attending Physician: John Chambers Admitting Physician: AdmtrJohn Referring Physician: Admtr, Ar8 Allergies, Adverse Reactions, [...] EDT, Tablet Start Date: 11/08/19 Status: Ordered Lorazepam 0 Refills, Maintenance, 08/04/21 21:46:00 EST, Partial fill upon patient request if the prescription is for a schedule II opioid drug. Start Date: 08/04/21 Status: Ordered oxyCODONE 5 mg oral tablet 5 mg, 1, tablet, By Mouth, Every 4 hours, PRN, # 42 tablet, Refills 0, Tot. Refills 0, Maintenance,Pain , Moderate, 04/10/22 11:27:00 EDT, Route to Pharmacy Electronically, [facility], Partial fill upon patient [...] 04/10/22 11:27:00 EDT, Route to Pharmacy Electronically, [facility], Partial fillupon patient request [...] Status Inform ant Obese class I(Confirmed) Active Care Team Personnel Name: Brian Vicente MD Address: [address] [place] [id number]
--- OUTSIDE RECORDS SUMMARY | 2023-10-05 18:38 | XMS_ITS | Continuity of Care Document ---
Author Name Unknown Organization [facility] Address [address] [place] [address] [address], [address] [place] [address]- Care Team Providers Care Bobbin Handler Name Role Phone Poncho Self MD Primary Care Physician [place] [facility] [place] Date(s): 03/07/20 - 04/06/20 [facility] [address] [place] [address] Drive, [address] [place] [address]- [facility] Allergies, Adverse Reactions, Alerts Substance Reaction Severity [...] 0 Refills, Maintenance, 11/08/19 12:13:00 EDT, Tablet, [facility], 175, cm, 11/08/19 9:00:00 EDT, Height, 101.2, kg, 11/08/19 9:00:00 EDT, Dry Weight Start Date: 11/08/19 Status: Ordered ondansetron 4 mg oral tablet, disintegrating = 4 mg, By Mouth, Every 6 hours, PRN Nausea & Vomiting, # 20 tablet, 0 Refills, Maintenance, 11/08/19 12:13:00 EDT, Tablet, [facility] 2683, 175, cm, 11/08/19 9:00:00 EDT, Height, 101.2, kg, 11/08/19 9:00:00 EDT, Dry Weight Start Date: 11/08/19 Stop Date: 11/13/19 Status: Ordered Suboxone 8 mg-2 mg Sublingual Film 1 film, Sublingual, Daily, dissolve under the tongue, 0 Refills, Maintenance, 11/08/19 4:23:00 EDT,Film Start Date: 11/08/19 Status: Ordered
--- OUTSIDE RECORDS SUMMARY | 2023-10-05 18:38 | XMS_ITS | Continuity of Care Document ---
Author Name Unknown Organization [facility] ter Address [address] [place] [address]- Care Team Providers Care Systems Operator Name Role Phone Poncho Self MD Primary Care Physician [phone] [place] [facility](s[place] 08/04/21 - 08/05/[address] [address]- Discharge Disposition: A-D/C Walkout Attending Physician: Not on Staff, Attending MD Admitting Physician: Not on Staff, Admitting MD Referring Physician: Not on Staff, Referring MD Allergies, Adverse Reactions, Alerts Substance Reaction [...] 0 Refills, Maintenance, 11/08/19 12:13:00 EDT, Tablet, [facility], 175, cm, 11/08/19 9:00:00 EDT, Height, 101.2, kg, 11/08/19 9:00:00 EDT, Dry Weight Start Date: 11/08/19 Status: Ordered ondansetron 4 mg oral tablet, disintegrating = 4 mg, By Mouth, Every 6 hours, PRN Nausea & Vomiting, # 20 tablet, 0 Refills, Maintenance, 11/08/19 12:13:00 EDT, Tablet, [facility], 175, cm, 11/08/19 9:00:00 EDT, [...] opioid drug. Start Date: 08/04/21 Status: Ordered Vital Signs Most recent to oldest [Reference Range]: 1 Oxygen Saturation [94-100 %] 99 % (08/04/21 9:44 PM) Pulse Rate [55-90 bpm] 106 bpm *H* (08/04/21 9:44 PM) Blood Pressure [90-138/55-84 mm Hg] 130/ 77mm Hg (08/04/21 9:44 PM) Respiratory Rate [16-30 br/min] 16 br/mi n (08/04/21 9:44 PM) Temperature [96.8-100.4 DegF] 98.1 DegF (08/04/21 9:44 PM) Mode of Delivery (Oxygen) Room air (08/04/21 9:44 PM) Blood pressure sites Arm, right (08/04/21 9:44 PM) Temperature Route Oral (08/04/21 9:44 PM)
--- OUTSIDE RECORDS SUMMARY | 2023-10-05 18:38 | XMS_ITS | Continuity of Care Document ---
Author Name Unknown Organization [facility] Address [address] [place] [address] jon, [address] [place] [address]- Care Team Providers Care Tenter Frame Back Tender Name Role Phone Poncho Self MD Primary Care Physician [phone] Encounter [facility] [place] Date(s): 03/01/20 - 03/31/20 [facility] [address] [place] [address], [address] [place] [address]- [facility] Attending Physician: Admtr, Isidoro8 Admitting Physician: Admtr, Ar8 Referring Physician: Admtr, Ar8 Allergies, Adverse Reactions, [...] 0 Refills, Maintenance, 11/08/19 12:13:00 EDT, Tablet, [facility], 175, cm, 11/08/19 9:00:00 EDT, Height, 101.2, kg, 11/08/19 9:00:00 EDT, Dry Weight Start Date: 11/08/19 Status: Ordered ondansetron 4 mg oral tablet, disintegrating = 4 mg, By Mouth, Every 6 hours, PRN Nausea & Vomiting, # 20 tablet, 0 Refills, Maintenance, 11/08/19 12:13:00 EDT, Tablet, [facility], 175, cm, 11/08/19 9:00:00 EDT, Height, 101.2, kg, 11/08/19 9:00:00 EDT, Dry Weight Start Date: 11/08/19 Stop Date: 11/13/19 Status: Ordered Suboxone 8 mg-2 mg Sublingual Film 1 film, Sublingual, Daily, dissolve under the tongue, 0 Refills, Maintenance, 11/08/19 4:23:00 EDT,Film Start Date: 11/08/19 Status: Ordered
--- OUTSIDE RECORDS SUMMARY | 2023-10-05 18:38 | XMS_ITS | Continuity of Care Document ---
Author Name Unknown Organization [facility] Address [address] [place] [address], [address] [place] [address]- Care Team Providers Care Call Or Contact Centre Manager Name Role Phone Cinthia LUZ, Brian Sheridan Primary Care Physician Encounter [facility] [place] Date(s): 04/05/22 - 05/05/22 [facility] [address] [place] [address] Drive, [address] [place], [place] [address] Allergies, Adverse Reactions, Alerts Substance Reaction Severity [...] 04/10/22 11:27:00 EDT, Route to Pharmacy Electronically, [facility], Partial fill upon patient request if the [...] 04/10/22 11:27:00 EDT, Route to Pharmacy Electronically, [facility] 2683, Partial fillupon patient request if [...] Team Personnel Name: Brian Vicente MD Address: [address] [place] [id number]
--- OUTSIDE RECORDS SUMMARY | 2023-10-05 18:38 | XMS_ITS | Continuity of Care Document ---
Author Name Unknown Organization [facility] Address [address] [place] [address], [address] [place] [address]- Care Team Providers Care Panelbeater Name Role Phone Brian Vicente MD Primary Care Physician En[place] [facility] [place] Date(s): 03/27/22 - 06/06/22 [facility] [address] [place] [address], [address] [place], [place] [address] Attending Physician: Andrez Hinson MD Referring Physician: Brian Vicente MD Allergies, Adverse Reactions, Alerts Substance Reaction [...] 04/10/22 11:27:00 EDT, Route to Pharmacy Electronically, [facility] 2683, Partial fill upon [...] 04/10/22 11:27:00 EDT, Route to Pharmacy Electronically, [facility] 2683, Partial fillupon patient [...] Date: 08/04/21 Status: Ordered Problem List Condition Confirmation Course Effective Dates Status Health St atus Informant Obese class I Confirmed Active Patient Care team information Personnel Name: Cinthia LUZ, Brian Sheridan Address: Address: [address] [place] [address]
--- OUTSIDE RECORDS SUMMARY | 2023-10-05 18:38 | XMS_ITS | Continuity of Care Document ---
Author Name Unknown Organization [facility] Address [address] [place] [address], [address] [place] [address]- Care Team Providers Care Student Admissions Clerk Name Role Phone Brian Vicente MD Primary Care Physician [place] [facility] 05/16/22 - 06/15/22 [facility] [address] [place] [address], [address] [place], [place] [address] Attending Physician: Admtr, Isidoro8 Admitting Physician: Admtr, Isidoro8 Referring Physician: Admtr, Ar8 Allergies, Adverse Reactions, [...] 04/10/22 11:27:00 EDT, Route to Pharmacy Electronically, [facility] 2683, Partial fill upon patient request [...] 04/10/22 11:27:00 EDT, Route to Pharmacy Electronically, [facility] 2683, Partial fillupon patient request [...] Name: Cinthia LUZ, Brian Sheridan Address: Address: [address] [place] [address]
--- OUTSIDE RECORDS SUMMARY | 2023-10-05 18:38 | XMS_ITS | Continuity of Care Document ---
Author Name Unknown Organization [facility] Address [address] [place], [place] [address], [address] [place] [address]- Care Team Providers Care Haunted History Tour Guide Name Role Phone Poncho Self MD Primary Care Physician [phone] Encounter [facility] [place] Date(s): 03/21/21 - 03/28/[address], [address] [place], [place] [address] Attending Physician: Olu LUZ, Christen [...] 0 Refills, Maintenance, 11/08/19 12:13:00 EDT, Tablet, [facility], 175, cm, 11/08/19 9:00:00 EDT, Height, 101.2, kg, 11/08/19 9:00:00 EDT, Dry Weight Start Date: 11/08/19 Status: Ordered ondansetron 4 mg oral tablet, disintegrating = 4 mg, By Mouth, Every 6 hours, PRN Nausea & Vomiting, # 20 tablet, 0 Refills, Maintenance, 11/08/19 12:13:00 EDT, Tablet, [facility] 2683, 175, cm, 11/08/19 9:00:00 EDT, Height, 101.2, kg, 11/08/19 9:00:00 EDT, Dry Weight Start Date: 11/08/19 Stop Date: 11/13/19 Status: Ordered Suboxone 8 mg-2 mg Sublingual Film 1 film, Sublingual, Daily, dissolve under the tongue, 0 Refills, Maintenance, 11/08/19 4:23:00 EDT,Film Start Date: 11/08/19 Status: Ordered
--- OUTSIDE RECORDS SUMMARY | 2023-10-05 18:38 | XMS_ITS | Continuity of Care Document ---
Author Name Unknown Organization [facility] Address [address] [place] [address], [address] [place] [address]- Care Team Providers Care Doctor Of Osteopathy Name Role Phone Brian Vicente MD Primary Care Physician Encounter [facility] [place] Date(s): 05/16/22 - 05/23/22 [facility] [address] [place] [address], [address] [place], [place] [address] Attending Physician: Andrez Hinson MD [...] 04/10/22 11:27:00 EDT, Route to Pharmacy Electronically, [facility]3, Partial fill upon [...] 04/10/22 11:27:00 EDT, Route to Pharmacy Electronically, [facility] 2683, Partial fillupon patient [...] atus Informant Obese class I Confirmed Active Vital Signs Most recent to oldest [Reference Range]: 1 Height 175.26 cm (05/16/22 3:28 PM) Weight 100 kg (05/16/22 3:28 PM) Body Mass Index [18.5-24.99 kg/m2] 32.56 kg/m2 *>HHI* (05/16/22 3:28 PM) Patient Care team information Personnel Name: Cinthia LUZ, Brian Sheridan Address: Address: [address] [place] [id number]
--- OUTSIDE RECORDS SUMMARY | 2023-10-05 18:38 | XMS_ITS | Continuity of Care Document ---
Author Name Unknown Organization [facility] ter Address [address] [place] [address]- Care Team Providers Care Internet Consultant Name Role Phone Clair LUZ, Poncho Estrada Primary Care Physician Encounter [facility] [place] Date(s): 11/07/19 - 11/08/[address] [address]- [facility] Discharge Disposition: A-D/C Home Attending Physician: Saul Robert MD Admitting Physician: Ivett Brownlee MD Referring Physician: Not on Staff, Referring MD Allergies, Adverse Reactions, Alerts Substance Reaction Severity Status tetanus toxoid Active Vicodin Active Medications dextromethorphan-guaifenesin 10 mg-100 mg/10 mL oral liquid 10 mL, By Mouth, Every 4 hours, PRN as needed for cough, for 7 days, not to exceed 6 doses/day, # 120 mL, 1 Refills, Acute 11/22/19 12:13:00 EDT, 11/08/19 12:13:00 EDT, Liquid, [facility],10 mL By Mouth Every 4 hours,x7 days,PRN:as needed... Start Date: 11/08/19 Stop Date: 11/22/19 Status: Ordered escitalopram 10 mg oral tablet 1 tablet = 10 mg, By Mouth, Daily, # 30 tablet, 0 Refills, Maintenance, 11/08/19 4:23:00 EDT, Tablet Start Date: 11/08/19 Status: Ordered meclizine 25 mg oral tablet 1 tablet = 25 mg, By Mouth, 3 times a day, PRN for dizziness, # 60 tablet, 0 Refills, Maintenance, 11/08/19 12:13:00 EDT, [facility]t, [facility], 175, cm, 11/08/19 9:00:00 EDT, Height, 101.2, kg, 11/08/19 9:00:00 EDT, Dry Weight Start Date: 11/08/19 Status: Ordered ondansetron 4 mg oral tablet, disintegrating = 4 mg, By Mouth, Every 6 hours, PRN Nausea & Vomiting, # 20 tablet, 0 Refills, Maintenance, 11/08/19 12:13:00 EDT, Tablet, [facility] 2683, 175, cm, 11/08/19 9:00:00 EDT, Height, 101.2, kg, 11/08/19 9:00:00 EDT, Dry Weight Start Date: 11/08/19 Stop Date: 11/13/19 Status: Ordered Suboxone 8 mg-2 mg Sublingual Film 1 film, Sublingual, Daily, dissolve under the tongue, 0 Refills, Maintenance, 11/08/19 4:23:00 EDT,Film Start Date: 11/08/19 Status: Ordered Tylenol 325 mg oral tablet 650 mg, 2, tablet, By Mouth, 4 times a day, PRN, for 7 days, # 50 tablet, Refills 0, Tot. Refills 0, Acute 11/15/19 12:13:00 EDT, for pain, 11/08/19 12:13:00 EDT, Route to Pharmacy Electronically, [facility] 2683, 175, cm, 11/08/19 9:00:00 EDT,... Start Date: 11/08/19 Stop Date: 11/15/19 Status: Ordered Results Radiology Reports * Exam Date Time Procedure Performing Provider Status 11/07/19 8:38 PM Chest Portable Estella Dorsey; Auth (Verified) Notes: (Chest Portable) Reason For Exam: Shortness of Breath RESULT: Chest Portable Chest Portable Refer to EMR; Reason: Shortness of Breath; Clinical Question(s): CHF COMPARISON: Prior chest radiograph, most recently October 06, 2013. FINDINGS: LINES AND TUBES: None. LUNGS AND PLEURA: There is mild pulmonary vascular congestion without shalom pulmonary edema. No focal consolidation, pleural effusion, or pneumothorax. HEART, MEDIASTINUM AND CODY: Heart is normal in size. Normal mediastinal and hilar contour. BONES AND SOFT TISSUES: No acute abnormality. IMPRESSION: Mild pulmonary vascular congestion without shalom pulmonary edema. No consolidation. WSN: [id number] Ordering Physician: Diogenes Pabon Dictated By: Deo Salas MD Dictated Date/Time: 11/07/19 8:43 pm Reviewed By: Deo Salas MD Signed By: Deo Salas MD Signed Date/Time: 11/07/19 8:43 pm Transcribed By: ARIN Transcribed Date/Time: 11/07/19 8:42 pm Vital Signs Most recent to oldest [Reference Range]: 1 2 3 Height 175 cm (11/08/19 9:00 AM) 175 cm (11/07/19 8:47 PM) 175 cm (11/07/19 6:31 PM) Weight 101.2 kg (11/08/19 9:00 AM) 101.2 kg (11/07/19 8:47 PM) 101.2 kg (11/07/19 6:31 PM) Oxygen Saturation [94-100 %] 97 % (11/08/19 9:00 AM) 95 % (11/08/19 4:32 AM) 96 % (11/08/19 12:32 AM) Pulse Rate [55-90 bpm] 67 bpm (11/08/19 9:00 AM) 91 bpm *H* (11/08/19 5:00 AM) 81 bpm (11/08/19 4:32 AM) Body Mass Index [18.5-24.99] 33.04 *>HHI* (11/08/19 9:00 AM) 33.04 *>HHI* (11/07/19 8:47 PM) Blood Pressure [90-138/55-84 mm Hg] 104/66mm Hg (11/08/19 9:00 AM) 146/86mm Hg *H* (11/08/19 5:00 AM) 118/63mm Hg (11/08/19 4:32 AM) Respiratory Rate [16-30 br/min] 16 br/min (11/08/19 9:00 AM) 29 br/min (11/08/19 5:00 AM) 14 br/min *L* (11/08/19 4:32 AM) Temperature [96.8-100.4 DegF] 97.5 DegF (11/08/19 9:00 AM) 97.9 DegF (11/07/19 10:54 PM) 97.7 DegF (11/07/19 6:53 PM) Mode of Delivery (Oxygen) Room air (11/08/19 9:00 AM) Room air (11/08/19 4:32 AM) Room air (11/08/19 12:32 AM) Blood pressure sites Arm, left (11/08/19 9:00 AM) Arm, left (11/08/19 5:00 AM) Arm, left (11/08/19 4:32 AM) Temperature Route Axillary (11/08/19 9:00 AM) Oral (11/07/19 10:54 PM) Oral (11/07/19 6:53 PM) Dry Weight 101.2 kg (11/08/19 9:00 AM) 101.2 kg (11/07/19 8:47 PM) 101.2 kg (11/07/19 6:31 PM)
--- OUTSIDE RECORDS SUMMARY | 2023-10-05 18:38 | XMS_ITS | Continuity of Care Document ---
Author Name Unknown Organization [facility] Address [address] [place] [address], [address] [place] [address]- Care Team Providers Care Auto Radio Mechanic Name Role Phone Poncho Self MD Primary Care Physician En[place] [facility] [place] Date(s): 03/01/20 - 03/08/20 [facility] [address] [place] [address] Drive, [address] [place] [address]- [facility] Attending Physician: Christen Raines MD Referring Physician: [...] 0 Refills, Maintenance, 11/08/19 12:13:00 EDT, Tablet, [facility], 175, cm, 11/08/19 9:00:00 EDT, Height, 101.2, kg, 11/08/19 9:00:00 EDT, Dry Weight Start Date: 11/08/19 Status: Ordered ondansetron 4 mg oral tablet, disintegrating = 4 mg, By Mouth, Every 6 hours, PRN Nausea & Vomiting, # 20 tablet, 0 Refills, Maintenance, 11/08/19 12:13:00 EDT, Tablet, [facility] 268[facility], 175, cm, 11/08/19 9:00:00 EDT, Height, 101.2, kg, 11/08/19 9:00:00 EDT, Dry Weight Start Date: 11/08/19 Stop Date: 11/13/19 Status: Ordered Suboxone 8 mg-2 mg Sublingual Film 1 film, Sublingual, Daily, dissolve under the tongue, 0 Refills, Maintenance, 11/08/19 4:23:00 EDT,Film Start Date: 11/08/19 Status: Ordered Vital Signs Most recent to oldest [Reference Range]: 1 Height 175 cm (02/29/20 10:32 AM) Weight 102.1 kg (02/29/20 10:32 AM) Body Mass Index [18.5-24.99] 33.34 *>HHI* (02/29/20 10:32 AM)
[2023-10-05 19:09] LABS: Amphetamine Screen Urine POSITIVE (Not Detect); Barbiturates, Urine Not Detected (Not Detect); Benzodiazepines Screen Urine Not Detected (Not Detect); Cannabinoid Screen Urine POSITIVE (Not Detect); Cocaine Screen Urine Not Detected (Not Detect); Fentanyl, urine Not Detected (Not Detect); Opiate Screen Urine Not Detected (Not Detect); Phencyclidine Screen Urine Not Detected (Not Detect)
[2023-10-05 19:16] LABS: MANUAL DIFF FLAG NO
[2023-10-05 19:36] LABS: Acetaminophen LAB < 3 mcg/mL (<30); Alanine Aminotransferase 30 U/L (0-40); Albumin Level 4.5 g/dL (3.5-5.0); Alkaline Phosphatase 86 U/L (39-117); Anion Gap 12 (12-20); Aspartate Amino Transferase 22 U/L (5-37); Bilirubin Direct 0.2 mg/dL (0.0-0.5); Bilirubin Total 0.7 mg/dL (0.0-1.0); Blood Urea Nitrogen 15 mg/dL (9-16); Calcium 9.5 mg/dL (8.4-10.2); Carbon Dioxide 29 mmol/L (22-29); Chloride 104 mmol/L (96-108); Creatinine Clr Calc Pharmacy 138.1; Estimated Glomerular Filt Rate > 60; Ethanol < 10 mg/dL; Glucose Random 100 mg/dL (60-115); Lipase 23 U/L (8-78); Salicylate < 5.0 mg/dL (15-30); Sodium 141 mmol/L (135-145); Total Protein 7.4 g/dL (6.5-8.0)
[2023-10-05 19:39] LABS: Basophils Absolute Auto 0.1 X10*3/uL (0.0-0.2); Basophils Percent Auto 0.4 % (0-2); Eosinophils Absolute Auto 0.1 X10*3/uL (0.0-0.4); Eosinophils Percent Auto 0.8 % (0-4); Hematocrit 42.7 % (42.0-52.0); Hemoglobin 14.2 g/dl (14.0-18.0); Imm Gran Pct Auto 1.5 % (0.0-0.4); Lymphocytes Absolute Auto 2.1 X10*3/uL (1.2-4.9); Lymphocytes Percent Auto 15.7 % (20-40); Mean Corpuscular HGB Conc 33.3 g/dl (31.0-36.0); Mean Corpuscular Hemoglobin 30.5 pg (27.0-33.0); Mean Corpuscular Volume 91.6 fL (80.0-98.0); Mean Platelet Volume 10.2 fL (9.4-12.4); Monocytes Absolute Auto 1.3 X10*3/uL (0.1-1.2); Monocytes Percent Auto 9.6 % (2-11); Neutrophils Absolute Auto 9.6 x10*3/uL (2.0-8.3); Platelet Count 239 X10*3/uL (160-400); Red Blood Count 4.66 X10*6/uL (4.60-5.80); White Blood Count 13.3 X10*3/uL (4.8-10.8)
[2023-10-05 19:54] LABS: COVID-19 Test Negative (Negative); IDNOW Serial# 08D9AD1C; IDNOW Serial# 152EDE1D; Influenza A Negative (Negative); Influenza B2 Negative (Negative)
[2023-10-05] MEDS: Acetaminophen 325 MG TABLET 650 MG PO (21:10)
[2023-10-05] MEDS: Nicotine 21 MG PATCH.TD24 TRANSDERMA (21:11)
[2023-10-06 05:58] VITALS: BP 121/88; PULSE 100; RESP 12; TEMP 36.2; O2SAT 99
--- NOTE | 2023-10-06 07:20 | PC.NURSE ---
patient appears to be asleep in bed, respirations equal and unlabored, skin PWD.
[2023-10-06] MEDS: LORazepam 1 MG TABLET PO (10:26)
[2023-10-06] MEDS: Ibuprofen 800 MG TABLET PO (10:28)
[2023-10-06] MEDS: FLUoxetine HCl 20 MG CAPSULE 40 MG PO (10:28)
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
[2023-10-06 11:36] VITALS: BP 126/86; PULSE 110; RESP 17; TEMP 36.6; O2SAT 98
--- NOTE | 2023-10-06 15:30 | PC.NURSE ---
patient has been sleeping off and on through out the day, ambulates with a steady gait to the bathroom, able to make needs known. patient has remained calm and cooperative, currently on the phone with his sister Kelli.
[2023-10-06] MEDS: Ibuprofen 600 MG TABLET PO (18:25)
[2023-10-06] MEDS: Acetaminophen 325 MG TABLET 650 MG PO (18:26)
[2023-10-06] MEDS: Nicotine 21 MG PATCH.TD24 TRANSDERMA (18:35)
[2023-10-06] MEDS: Famotidine 20 MG TABLET 40 MG PO (21:00)
[2023-10-06] MEDS: Nortriptyline HCl 25 MG CAPSULE 100 MG PO (21:00)
[2023-10-06] MEDS: Zolpidem Tartrate 5 MG TABLET 10 MG PO (21:05)
--- NOTE | 2023-10-07 05:01 | PC.NURSE ---
patient appears to remain asleep for the majority of the shift, withdrawn, pleasant cooperative maintains safe behavior.
[2023-10-07 06:23] VITALS: BP 111/69; PULSE 97; RESP 17; TEMP 36.8; O2SAT 98
--- NOTE | 2023-10-07 07:32 | PC.NURSE ---
Assumed care of patient at 0700, patient appears to be sleeping at this time, respirations even and unlabored, plan for IPLOC
--- NOTE | 2023-10-07 08:44 | MHC.CARE ---
RAD Team conducted statewide bedsearch, referral being reviewed by [facility], [facility], [facility], [facility] , [facility] , [facility] , [facility],and [facility]. RAD team to f/u with facilities to see outcome
[2023-10-07] MEDS: FLUoxetine HCl 20 MG CAPSULE 40 MG PO (09:02)
[2023-10-07] MEDS: Atorvastatin Calcium 10 MG TABLET PO (09:02)
[2023-10-07 09:12] VITALS: BP 131/100; PULSE 108; RESP 20; TEMP 36.9; O2SAT 98
[2023-10-07] MEDS: LORazepam 1 MG TABLET PO (09:38)
--- NOTE | 2023-10-07 10:22 | PC.NURSE ---
Patient requesting to leave at this time. Pt is aware he is a Sec 12 at this time. CARE team aware of patient's want to leave
[2023-10-07] MEDS: OLANZapine 10 MG TABLET PO (13:41)
[2023-10-07 14:40] VITALS: RESP 14
--- NOTE | 2023-10-07 14:40 | PC.NURSE ---
Late entry: patient reporting increased anxiety, rocking back and forth, requesting medications. Zyprexa administered per OCT. Pt now sleeping, respirations even and unlabored, no apparent distress at this time
[2023-10-07] MEDS: clonazePAM 1 MG TABLET PO (15:14)
--- NOTE | 2023-10-07 15:18 | PC.NURSE ---
Pt approached this RN at nurses station, reporting increased anxiety, requesting something for it. Pt then returned to bedroom and began pacing and rocking back and forth on bed. pt verbalizes frustration with being here in the pod and continues to request to leave
--- NOTE | 2023-10-07 17:02 | PC.NURSE ---
Pt has be more calm since Clonazepam administration. Pt did punch the wall a few times prior to going to sleep. Pt appears to be sleeping at this time, respirations even and unlabored, no apparent distress
--- NOTE | 2023-10-07 19:33 | PC.NURSE ---
patient appears to remain at rest at present respirations are even and unlabored patient appears in no distress.
[2023-10-07] MEDS: Famotidine 20 MG TABLET 40 MG PO (20:42)
[2023-10-07] MEDS: Nortriptyline HCl 25 MG CAPSULE 100 MG PO (20:42)
[2023-10-07] MEDS: Zolpidem Tartrate 5 MG TABLET 10 MG PO (20:42)
[2023-10-07 20:51] VITALS: BP 107/84; PULSE 118; RESP 18; TEMP 36.1; O2SAT 98
[2023-10-08 04:48] VITALS: BP 94/58; PULSE 96; RESP 14; TEMP 36.3; O2SAT 94
[2023-10-08] MEDS: Atorvastatin Calcium 10 MG TABLET PO (08:09)
[2023-10-08] MEDS: FLUoxetine HCl 20 MG CAPSULE 40 MG PO (08:09)
[2023-10-08] MEDS: LORazepam 1 MG TABLET PO ×3 (08:55→21:17)
--- NOTE | 2023-10-08 10:28 | MHC.CARE ---
RAD Team conducted statewide bedsearch, referral being reviewed by [facility], [facility], [facility], [facility] , [facility] , [facility] , and [facility]. RAD team to f/u with facilities to see outcome
[2023-10-08 11:50] LABS: COVID-19 Test Negative (Negative); IDNOW Serial# 08D9AD1C
[2023-10-08] MEDS: OLANZapine ODT 10 MG TAB.RAPDIS TRANSLINGU (12:13)
--- NOTE | 2023-10-08 12:15 | PC.NURSE ---
Patient medicated per Mar for increased anxiety per patient. Patient states ativan is not as effective as Zyprexa.
[2023-10-08 13:07] LABS: Appearance Urine Clear; Color Urine Yellow; Glucose Urine UA Negative (Negative); Leukocyte Esterase Urine Negative (Negative); Nitrite Urine Negative (Negative); PH 6.5 (5.0-9.0); Urine Blood Negative (Negative); Urine Ketones Negative (Negative); Urine Protein Negative (Neg-Trace)
[2023-10-08 15:07] VITALS: BP 91/57; PULSE 112; RESP 16; TEMP 36.1; O2SAT 96
--- NOTE | 2023-10-08 15:53 | HE.PHANOTE ---
Addendum entered by Norma Jauregui RPh 10/08/23 16:02: Patient reporting lithium has been discontinued Original Note: Pharmacy is reviewing med rec completed by Bailee. [place] has been recently filled and not on list completed by RN. Patient is currently agitated therefore could not ask at this time. Will hopefully follow-up later. RN also aware to ask if possible.
--- NOTE | 2023-10-08 15:54 | PC.NURSE ---
Patient observed agitated speaking on the phone with family, stating they are keeping me here against my will. Social Work presently speaking with patient about his currently health status and what his options for treatment are.
[2023-10-08] MEDS: HaloperidoL 5 MG TABLET PO (16:16)
[2023-10-08] MEDS: Nicotine 21 MG PATCH.TD24 TRANSDERMA (16:18)
[2023-10-08] MEDS: OLANZapine 10 MG TABLET PO (18:53)
[2023-10-08] MEDS: Ibuprofen 600 MG TABLET PO (18:53)
[2023-10-08] MEDS: Nortriptyline HCl 25 MG CAPSULE 100 MG PO (21:17)
[2023-10-08] MEDS: Famotidine 20 MG TABLET 40 MG PO (21:17)
--- NOTE | 2023-10-08 23:22 | MHC.CARE ---
RAD Team conducted state wide bed search for this pt, referral was sent to [facility], [facility], [facility], [facility], [facility], [facility], [facility], [facility], [facility], [facility] for review. RAD Team to follow up tomorrow
--- NOTE | 2023-10-09 | ECG_ITS ---
Test Reason : ck qt Blood Pressure : / mmHG Vent. Rate : 103 BPM Atrial Rate : 103 BPM P-R Int : 166 ms QRS Dur : 110 ms QT Int : 360 ms P-R-T Axes : 035 035 036 degrees QTc Int : 471 ms Sinus tachycardia Nonspecific T wave abnormality Abnormal ECG When compared with ECG of 02-SEP-2023 07:24, No significant change was found Referred By: Harper Mcneil Electronically Signed By:DARYL CLEMENS MD
[2023-10-09 06:13] VITALS: RESP 16
--- NOTE | 2023-10-09 07:21 | PC.NURSE ---
Assumed care of patient at 0700, patient appears to be sleeping at this time, respirations even and unlabored, no apparent distress. Continue plan of care for Sec 12 inpt bedsearch
[2023-10-09] MEDS: LORazepam 1 MG TABLET PO ×4 (08:28→20:58)
[2023-10-09] MEDS: FLUoxetine HCl 20 MG CAPSULE 40 MG PO (08:28)
[2023-10-09] MEDS: Atorvastatin Calcium 10 MG TABLET PO (08:28)
[2023-10-09 11:09] VITALS: BP 110/77; PULSE 109; RESP 20; TEMP 37.1; O2SAT 97
[2023-10-09] MEDS: Ibuprofen 600 MG TABLET PO (12:10)
[2023-10-09 12:30] VITALS: BP 127/81; PULSE 109; RESP 16; TEMP 36.7; O2SAT 98
--- NOTE | 2023-10-09 12:49 | PC.NURSE ---
pt arrived on the unit @ 12:30 via wheelchair on a CV. Skin check & safety search performed, vitals recorded and pt oriented to unit. Pt declined access to cell phone. Menus and legals completed. Admission to be completed.
[2023-10-09] MEDS: hydrOXYzine HCL 25 MG TABLET PO (13:12)
--- NOTE | 2023-10-09 13:39 | PC.NURSE ---
pt signed a 3day notice 10/09/23. Up on 10/16. Providers, UR and SW aware via voicemail
[2023-10-09 18:00] VITALS: BP 125/82; PULSE 111; RESP 18; O2SAT 97
[2023-10-09] MEDS: Nortriptyline HCl 25 MG CAPSULE 100 MG PO (20:58)
[2023-10-09] MEDS: Nicotine 21 MG PATCH.TD24 TRANSDERMA (20:58)
[2023-10-09] MEDS: Famotidine 20 MG TABLET 40 MG PO (20:58)
[2023-10-09] MEDS: Zolpidem Tartrate 5 MG TABLET 10 MG PO (21:18)
[2023-10-09] MEDS: Lidocaine 4 % Patch ADH..PATCH 0.5 PATCH TRANSDERMA (22:12)
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
--- NOTE | 2023-10-10 | EEG_ITS ---
This is a 16-channel EEG with an EKG lead. The patient is reported alert and awake during the tracing. Background EEG rhythm is low amplitude fast with no obvious asymmetry or paroxysmal tendency. Photic stimulation does not produce any significant driving. Hyperventilation is not performed. Cardiac lead does not reveal any significant abnormality. No sharp wave spikes or paroxysmal tendency noted. IMPRESSION: Unremarkable EEG. MD EMMA Yung/AMBER / [id number]
[2023-10-10 07:00] VITALS: BMI 34.4
[2023-10-10 08:09] VITALS: BP 97/62; PULSE 101; RESP 16; TEMP 36.6; O2SAT 95
[2023-10-10] MEDS: FLUoxetine HCl 20 MG CAPSULE 40 MG PO (08:13)
[2023-10-10] MEDS: Atorvastatin Calcium 10 MG TABLET PO (08:13)
[2023-10-10] MEDS: Nicotine 21 MG PATCH.TD24 TRANSDERMA (08:13)
[2023-10-10] MEDS: LORazepam 1 MG TABLET PO ×5 (08:13→19:41)
[2023-10-10] MEDS: Lidocaine 4 % Patch ADH..PATCH 0.5 PATCH TRANSDERMA ×2 (08:24→19:40)
[2023-10-10 08:51] LABS: Estimated Average Glucose 94 mg/dL; Hemoglobin A1c % 4.9 % (<6.0)
[2023-10-10 08:54] LABS: Cholesterol 183 mg/dL (<200); HDL Cholesterol 38 mg/dL (>40); LDL Cholesterol Calculated 114 mg/dL (<100); Magnesium 2.4 mg/dL (1.6-2.6); Triglycerides 157 mg/dL (<150)
[2023-10-10 09:08] LABS: Free T4 (Free Thyroxine) 0.97 ng/dL (0.71-1.85); Thyroid Stimulating Hormone 1.63 uIU/mL (0.32-4.0)
[2023-10-10 09:22] LABS: Vitamin B12 331 pg/mL (200-900)
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
--- NOTE | 2023-10-10 14:05 | PC.NURSE ---
pt reports frequent black out and believes he has an aneurysm or some other medical condition and does not believe the blackout are psychiatric in origin. Provider CAW notified via email for potential imaging
[2023-10-10] MEDS: Ibuprofen 600 MG TABLET PO (17:06)
[2023-10-10] MEDS: Nicotine Polacrilex 2 MG GUM 4 MG BUCCAL (17:06)
[2023-10-10 18:00] VITALS: BP 117/71; PULSE 115; RESP 18; TEMP 36.2; O2SAT 97
[2023-10-10] MEDS: Nortriptyline HCl 25 MG CAPSULE 100 MG PO (19:40)
[2023-10-10] MEDS: Zolpidem Tartrate 5 MG TABLET 10 MG PO (19:40)
[2023-10-10] MEDS: Famotidine 20 MG TABLET 40 MG PO (19:41)
[2023-10-11] MEDS: Nicotine 21 MG PATCH.TD24 TRANSDERMA (08:20)
[2023-10-11] MEDS: Thiamine HCL 100 MG TABLET PO (08:21)
[2023-10-11] MEDS: LORazepam 1 MG TABLET PO ×5 (08:21→19:57)
[2023-10-11] MEDS: Multivitamin TABLET 1 TAB PO (08:21)
[2023-10-11] MEDS: Atorvastatin Calcium 10 MG TABLET PO (08:21)
[2023-10-11] MEDS: FLUoxetine HCl 20 MG CAPSULE 40 MG PO (08:21)
[2023-10-11 08:33] VITALS: BP 121/74; PULSE 100; RESP 18; TEMP 36.4; O2SAT 97
--- NOTE | 2023-10-11 16:09 | HO.PSYCHPN ---
Subjective Subjective Date of Service: 10/11/23 Reason For Visit: Depression Subjective Notes: Conditional Voluntary Healthcare Proxy: No Guardianship: No Medical Problems Affecting Mental Status: Yes Interim History: Pt reports nightmares. EEG complete. Await neuro consult Will trial low dose Prazosin for nightmere mgt. 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 Hallucinations: None Delusions: Not Present Perceptual Disturbances: Depersonalization and Derealization Thought Process: Rumination Thought Content: positive for Perseveration Depressive Symptoms: Increased Anxiety, Insomnia, Difficulty Sleeping and Thoughts of /Suicide (without plan or intent) Abnormal Motor Activity Signs and Symptoms: Restlessness Judgement: Fair Diagnostics Vital Signs (24Hr): Vital Signs - 24 hr 10/10/23 18:00 10/11/23 08:33 Temperature 97.2 F 97.5 F Pulse Rate 115 H 100 Respiratory Rate 18 18 Blood Pressure 117/71 121/74 Pulse Oximetry 97 97 Oxygen Delivery Method Room Air Room Air BMI result Body Mass Index 34.4 Labs 10/05/23 19:10 10/05/23 19:10 Labs: Laboratory Results - last 48 hr 10/10/23 08:08 Estimat Average Glucose 94 Hemoglobin A1c % 4.9 Magnesium 2.4 Triglycerides 157 H Cholesterol 183 LDL Cholesterol, Calc 114 H HDL Cholesterol 38 L Vitamin B12 331 Folate 4.0 TSH 1.63 Free T4 0.97 Imaging Radiology Impressions: ITS Impressions Ribs X-Ray 10/05/23 18:57 IMPRESSION: 1. No acute pulmonary disease. 2. No displaced rib fractures. Head CT 10/05/23 18:59 IMPRESSION: 1. No acute intracranial pathology. 2. No CT evidence of acute cervical spine fracture or traumatic subluxation Cervical Spine CT 10/05/23 19:05 IMPRESSION: 1. No acute intracranial pathology. 2. No CT evidence of acute cervical spine fracture or traumatic subluxation Chest X-Ray 10/10/23 06:45 IMPRESSION: No evidence for acute disease in the chest. Medications Medications Current Medications Acetaminophen (Acetaminophen 325 Mg Tablet) 650 mg PO Q6H PRN PRN Reason: Pain, Mild (Pain Scale 1-3) Last Admin: 10/06/23 18:26 Dose: 650 mg Al Hydroxide/Mg Hydroxide (Magnesium Hydrox/Alum Hydrox 30 Ml Oral.Susp) 30 ml PO Q6H PRN PRN Reason: Heartburn/Nausea Atorvastatin Calcium (Atorvastatin Calcium 10 Mg Tablet) 10 mg PO DAILY [facility] Last Admin: 10/11/23 08:21 Dose: 10 mg Famotidine (Famotidine 20 Mg Tablet) 40 mg PO BEDTIME [facility] Last Admin: 10/10/23 19:41 Dose: 40 mg Fluoxetine HCl (Fluoxetine Hcl 20 Mg Capsule) 40 mg PO DAILY [facility] Last Admin: 10/11/23 08:21 Dose: 40 mg Fluticasone Propionate (Fluticasone Propionate Nasal 16 Gm [place]) 1 spray NOSTRIL-B BID [facility] Hydroxyzine HCl (Hydroxyzine Hcl 25 Mg Tablet) 25 mg PO Q6H PRN PRN Reason: Anxiety Last Admin: 10/09/23 13:12 Dose: 25 mg Ibuprofen (Ibuprofen 600 Mg Tablet) 600 mg PO Q6H PRN PRN Reason: Pain, Moderate(Pain Scale 4-6) Last Admin: 10/10/23 17:06 Dose: 600 mg Lidocaine (Lidocaine 4 % Patch Adh..Patch) 0.5 patch TRANSDERMA BID PRN; Protocol PRN Reason: Pain, Moderate(Pain Scale 4-6) Last Admin: 10/10/23 19:40 Dose: 0.5 patch Lorazepam (Lorazepam 1 Mg Tablet) 1 mg PO QID [facility] Last Admin: 10/11/23 13:53 Dose: 1 mg Lorazepam (Lorazepam 1 Mg Tablet) 1 mg PO BID PRN PRN Reason: Agitation Last Admin: 10/11/23 15:41 Dose: 1 mg Magnesium Hydroxide (Milk Of Magnesia 30 Ml Oral.Susp) 30 ml PO DAILY PRN PRN Reason: Constipation Multivitamins/Vitamin C (Multivitamin Tablet) 1 tab PO DAILY [facility] Last Admin: 10/11/23 08:21 Dose: 1 tab Nicotine (Nicotine 21 Mg Patch.Td24) 21 mg TRANSDERMA DAILY [facility] Last Admin: 10/11/23 08:20 Dose: 21 mg Nicotine Polacrilex (Nicotine Polacrilex 2 Mg Gum) 4 mg BUCCAL Q2H PRN PRN Reason: Nicotine Cravings Last Admin: 10/10/23 17:06 Dose: 4 mg Nortriptyline HCl (Nortriptyline Hcl 25 Mg Capsule) 100 mg PO BEDTIME [facility] Last Admin: 10/10/23 19:40 Dose: 100 mg Prazosin HCl (Prazosin Hcl 1 Mg Capsule) 1 mg PO BEDTIME [facility]AN[facility]; Protocol Pseudoephedrine HCl (Pseudoephedrine Hcl 30 Mg Tablet) 30 mg PO Q6H PRN PRN Reason: Congestion Thiamine HCl (Thiamine Hcl 100 Mg Tablet) 100 mg PO DAILY [facility] Last Admin: 10/11/23 08:21 Dose: 100 mg Trazodone HCl (Trazodone Hcl 100 Mg Tablet) 100 mg PO BEDTIME MRX1 PRN PRN Reason: Insomnia Zolpidem Tartrate (Zolpidem Tartrate 5 Mg Tablet) 10 mg PO BEDTIME PRN PRN Reason: Insomnia Last Admin: 10/10/23 19:40 Dose: 10 mg Allergies Allergies Allergy/AdvReac Type Severity Reaction Status Date / Time No Known Allergies Allergy Verified 10/05/23 18:29 Assessment & Plan Assessment & Plan (1) Depression, major, severe recurrence: Status: Acute Code(s): F33.2 - Major depressive disorder, recurrent severe without psychotic features Plan 32 yo male, hx of major depression to ED after experiencing fugue when sleeping, having an altercation with police and ending up in [facility] the next a[facility]. without memory of events. Possible adverse response to Ambien. Reports hx of migraine, no MRI hx and is asking for a diagnostic eval to identify cause of sx. Plan: Neurology consult Chest xray-discomfort and 3PPD smoker Thiamine 100 mg daily MVI 1 tab daily EEG ?[facility] Eval when discharged Change Ambien to prn Increase Trazodone to 100 mg HS, MR x1 ?PHP referral 10/11/23 Prazosin 1 mg HS for nightmare mgt. Patient educated on: medication risk/benefits and therapeutic strategies Informed Consent: understands Reason for continued inpatient stay Substantial Risk for: rapid decompensation Time Spent With Patient Time: Total time managing care of this patient today ____ minutes.
[2023-10-11] MEDS: Fluticasone Propionate Nasal 16 GM SPRAY 1 SPRAY NOSTRIL-B ×2 (16:50→19:47)
[2023-10-11] MEDS: Prazosin HCL 1 MG CAPSULE PO (19:47)
[2023-10-11] MEDS: Zolpidem Tartrate 5 MG TABLET 10 MG PO (19:47)
[2023-10-11] MEDS: Famotidine 20 MG TABLET 40 MG PO (19:47)
[2023-10-11] MEDS: Nortriptyline HCl 25 MG CAPSULE 100 MG PO (19:47)
[2023-10-11] MEDS: Lidocaine 4 % Patch ADH..PATCH 0.5 PATCH TRANSDERMA (19:52)
[2023-10-11 19:55] VITALS: BP 138/64; PULSE 98; RESP 18; TEMP 36.9; O2SAT 97
[2023-10-12 08:00] VITALS: BP 116/65; PULSE 99; RESP 18; TEMP 36.5; O2SAT 96
[2023-10-12] MEDS: Nicotine 21 MG PATCH.TD24 TRANSDERMA (09:40)
[2023-10-12] MEDS: Thiamine HCL 100 MG TABLET PO (09:41)
[2023-10-12] MEDS: FLUoxetine HCl 20 MG CAPSULE 40 MG PO (09:41)
[2023-10-12] MEDS: Multivitamin TABLET 1 TAB PO (09:41)
[2023-10-12] MEDS: LORazepam 1 MG TABLET PO ×6 (09:41→19:33)
[2023-10-12] MEDS: Atorvastatin Calcium 10 MG TABLET PO (09:41)
[2023-10-12] MEDS: Nicotine Polacrilex 2 MG GUM 4 MG BUCCAL (10:00)
[2023-10-12] MEDS: Fluticasone Propionate Nasal 16 GM SPRAY 1 SPRAY NOSTRIL-B ×2 (10:00→19:35)
[2023-10-12] MEDS: Pseudoephedrine HCL 30 MG TABLET PO (10:00)
[2023-10-12] MEDS: Ibuprofen 600 MG TABLET PO (11:35)
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
[2023-10-12] MEDS: Pramoxine HCl 1 % Rectal Foam 15 GM 1 APPL PR (13:03)
--- NOTE | 2023-10-12 14:51 | P.PNPSI_ITS ---
Subjective Subjective Date of Service: 10/12/23 Reason For Visit: Depression Interim History: Pt seen and discussed. He signed a 3 day. He reports nightmares and sleep didn't improve with Prazosin. Says his mood is OK and denies SI/AVH. He complained of blood when he was wiping. Reports a history of hemorrhoids. Review of Systems Review of Systems No recent head trauma. Constitutional: Denies chills, Denies fever(s) and Reports headache(s) Denies vertigo, Reports headache(s) and Reports neck pain Cardiovascular: Denies chest pain and Denies dyspnea Respiratory: Denies cough and Denies dyspnea Gastrointestinal: Denies abdominal pain Musculoskeletal: Reports neck pain Skin/Breast: Denies rash Denies vertigo and Reports headache(s) Psychiatric: Denies anxiety Mental Status Exam Mental Status Exam Patient Appearance: Appropriate Patient Orientation: Person, Place, Time and Situation Level of Consciousness: Alert Patient Behavior: Talkative and Good Eye Contact Mood Description: Depressed Affect Description: Flat Patient Cognition Impaired: No Ability to Follow Directions: Good Speech Pattern: Spontaneous Speech Memory Description: Remote Impaired and [facility] Impaired Thought Process: Intact Depressive Symptoms: Insomnia Diagnostics Vital Signs (24Hr): Vital Signs - 24 hr 10/11/23 19:55 10/12/23 08:00 Temperature 98.4 F 97.7 F Pulse Rate 98 99 Respiratory Rate 18 18 Blood Pressure 138/64 116/65 Pulse Oximetry 97 96 Oxygen Delivery Method Room Air BMI result Body Mass Index 34.4 Labs 10/05/23 19:10 10/05/23 19:10 Imaging Radiology Impressions: ITS Impressions Ribs X-Ray 10/05/23 18:57 IMPRESSION: 1. No acute pulmonary disease. 2. No displaced rib fractures. Head CT 10/05/23 18:59 IMPRESSION: 1. No acute intracranial pathology. 2. No CT evidence of acute cervical spine fracture or traumatic subluxation Cervical Spine CT 10/05/23 19:05 IMPRESSION: 1. No acute intracranial pathology. 2. No CT evidence of acute cervical spine fracture or traumatic subluxation Chest X-Ray 10/10/23 06:45 IMPRESSION: No evidence for acute disease in the chest. Medications Medications Current Medications Acetaminophen (Acetaminophen 325 Mg Tablet) 650 mg PO Q6H PRN PRN Reason: Pain, Mild (Pain Scale 1-3) Last Admin: 10/06/23 18:26 Dose: 650 mg Al Hydroxide/Mg Hydroxide (Magnesium Hydrox/Alum Hydrox 30 Ml Oral.Susp) 30 ml PO Q6H PRN PRN Reason: Heartburn/Nausea Atorvastatin Calcium (Atorvastatin Calcium 10 Mg Tablet) 10 mg PO DAILY [facility] Last Admin: 10/12/23 09:41 Dose: 10 mg Famotidine (Famotidine 20 Mg Tablet) 40 mg PO BEDTIME [facility] Last Admin: 10/11/23 19:47 Dose: 40 mg Fluoxetine HCl (Fluoxetine Hcl 20 Mg Capsule) 40 mg PO DAILY [facility] Last Admin: 10/12/23 09:41 Dose: 40 mg Fluticasone Propionate (Fluticasone Propionate Nasal 16 Gm [place]) 1 spray NOSTRIL-B BID [facility] Last Admin: 10/12/23 10:00 Dose: 1 spray Hydroxyzine HCl (Hydroxyzine Hcl 25 Mg Tablet) 25 mg PO Q6H PRN PRN Reason: Anxiety Last Admin: 10/09/23 13:12 Dose: 25 mg Ibuprofen (Ibuprofen 600 Mg Tablet) 600 mg PO Q6H PRN PRN Reason: Pain, Moderate(Pain Scale 4-6) Last Admin: 10/12/23 11:35 Dose: 600 mg Lidocaine (Lidocaine 4 % Patch Adh..Patch) 0.5 patch TRANSDERMA BID PRN; Protocol PRN Reason: Pain, Moderate(Pain Scale 4-6) Last Admin: 10/11/23 19:52 Dose: 0.5 patch Lorazepam (Lorazepam 1 Mg Tablet) 1 mg PO QID [facility] Last Admin: 10/12/23 13:01 Dose: 1 mg Lorazepam (Lorazepam 1 Mg Tablet) 1 mg PO BID PRN PRN Reason: Agitation Last Admin: 10/12/23 11:35 Dose: 1 mg Magnesium Hydroxide (Milk Of Magnesia 30 Ml Oral.Susp) 30 ml PO DAILY PRN PRN Reason: Constipation Multivitamins/Vitamin C (Multivitamin Tablet) 1 tab PO DAILY [facility] Last Admin: 10/12/23 09:41 Dose: 1 tab Nicotine (Nicotine 21 Mg Patch.Td24) 21 mg TRANSDERMA DAILY [facility] Last Admin: 10/12/23 09:40 Dose: 21 mg Nicotine Polacrilex (Nicotine Polacrilex 2 Mg Gum) 4 mg BUCCAL Q2H PRN PRN Reason: Nicotine Cravings Last Admin: 10/12/23 10:00 Dose: 4 mg Nortriptyline HCl (Nortriptyline Hcl 25 Mg Capsule) 100 mg PO BEDTIME [facility] Last Admin: 10/11/23 19:47 Dose: 100 mg Pramoxine HCl (Pramoxine Hcl 1 % Rectal Foam 15 Gm) 1 appl [place] BID [facility] Last Admin: 10/12/23 13:03 Dose: 1 appl Prazosin HCl (Prazosin Hcl 1 Mg Capsule) 3 mg PO BEDTIME [facility]; Protocol Pseudoephedrine HCl (Pseudoephedrine Hcl 30 Mg Tablet) 30 mg PO Q6H PRN PRN Reason: Congestion Last Admin: 10/12/23 10:00 Dose: 30 mg Thiamine HCl (Thiamine Hcl 100 Mg Tablet) 100 mg PO DAILY [facility] Last Admin: 10/12/23 09:41 Dose: 100 mg Trazodone HCl (Trazodone Hcl 100 Mg Tablet) 100 mg PO BEDTIME MRX1 PRN PRN Reason: Insomnia Zolpidem Tartrate (Zolpidem Tartrate 5 Mg Tablet) 10 mg PO BEDTIME PRN PRN Reason: Insomnia Last Admin: 10/11/23 19:47 Dose: 10 mg Allergies Allergies Allergy/AdvReac Type Severity Reaction Status Date / Time No Known Allergies Allergy Verified 10/05/23 18:29 Assessment & Plan Assessment & Plan (1) Brain lesion: Status: Acute Code(s): G93.9 - Disorder of brain, unspecified Assessment and Plan: There is a small mixed density left frontal cortical lesion, which could be a small venous angioma or cavernous angioma. In theory, it could result in focal seizure disorder but he does not have such history. His EEG was unremarkable. An MRI of brain with and without contrast can help to define it further. 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 He should stop using all drugs including marijuana and should not be prescribed Ambien or benzodiazepines. (3) Depression, major, severe recurrence: Status: Acute Code(s): F33.2 - Major depressive disorder, recurrent severe without psychotic features Plan 32 yo male, hx of major depression to ED after experiencing fugue when sleeping, having an altercation with police and ending up in [facility] the next a.m. without memory of events. Possible adverse response to Ambien. Reports hx of migraine, no MRI hx and is asking for a diagnostic eval to identify cause of sx. Plan: Neurology consult Chest xray-discomfort and 3PPD smoker Thiamine 100 mg daily MVI 1 tab daily EEG ?SALVATORE Eval when discharged Change Ambien to prn Increase Trazodone to 100 mg HS, MR x1 ?PHP referral 10/11/23 Prazosin 1 mg HS for nightmare mgt. 10/12: Increase Prazosin to 3 mg HS. Proctofoam for hemorrhoids. Otherwise Continue current management and treatment plan. Reason for continued inpatient stay Substantial Risk for: inability to function and rapid decompensation Time Spent With Patient Time: Total time managing care of this patient today ____ minutes.
[2023-10-12] MEDS: Lidocaine 4 % Patch ADH..PATCH 0.5 PATCH TRANSDERMA (16:08)
[2023-10-12] MEDS: hydrOXYzine HCL 25 MG TABLET PO (16:09)
[2023-10-12 16:38] VITALS: BP 120/72; PULSE 117; RESP 18; TEMP 36.3; O2SAT 96
[2023-10-12] MEDS: Famotidine 20 MG TABLET 40 MG PO (19:33)
[2023-10-12] MEDS: Zolpidem Tartrate 5 MG TABLET 10 MG PO (19:33)
[2023-10-12] MEDS: Nortriptyline HCl 25 MG CAPSULE 100 MG PO (19:33)
[2023-10-12] MEDS: Prazosin HCL 1 MG CAPSULE 3 MG PO (19:33)
[2023-10-13 08:00] VITALS: BP 122/77; PULSE 113; RESP 18; TEMP 36.3; O2SAT 98
[2023-10-13] MEDS: Nicotine 21 MG PATCH.TD24 TRANSDERMA (08:47)
[2023-10-13] MEDS: FLUoxetine HCl 20 MG CAPSULE 40 MG PO (08:48)
[2023-10-13] MEDS: Multivitamin TABLET 1 TAB PO (08:48)
[2023-10-13] MEDS: Thiamine HCL 100 MG TABLET PO (08:48)
[2023-10-13] MEDS: Atorvastatin Calcium 10 MG TABLET PO (08:48)
[2023-10-13] MEDS: LORazepam 1 MG TABLET PO ×6 (08:48→20:17)
[2023-10-13] MEDS: Fluticasone Propionate Nasal 16 GM SPRAY 1 SPRAY NOSTRIL-B ×2 (08:51→20:22)
[2023-10-13] MEDS: hydrOXYzine HCL 25 MG TABLET PO (10:19)
--- NOTE | 2023-10-13 12:49 | HO.PSYCHPN ---
Subjective Subjective Date of Service: 10/13/23 Reason For Visit: Depression Interim History: Pt seen and discussed. He had signed a 3 day. He reports his nightmare didn't get better with increase in Prazosin. He also reports he has been leaving his nicotine patch on overnight. Advised to take it off before sleep. He reports he is interested in leaving as soon as his 3 day notice expires. Tolerating medications well. He denies side effects. Says his mood is OK and denies SI/AVH. Review of Systems Review of Systems No recent head trauma. Constitutional: Denies chills, Denies fever(s) and Reports headache(s) Denies vertigo, Reports headache(s) and Reports neck pain Cardiovascular: Denies chest pain and Denies dyspnea Respiratory: Denies cough and Denies dyspnea Gastrointestinal: Denies abdominal pain Musculoskeletal: Reports neck pain Skin/Breast: Denies rash Denies vertigo and Reports headache(s) Psychiatric: Denies anxiety Mental Status Exam Mental Status Exam Patient Appearance: Appropriate Patient Orientation: Person, Place, Time and Situation Level of Consciousness: Alert Patient Behavior: Talkative and Good Eye Contact Mood Description: Depressed Affect Description: Flat Patient Cognition Impaired: No Ability to Follow Directions: Good Speech Pattern: Spontaneous Speech Memory Description: Remote Impaired and [employer]ist Impaired Diagnostics Vital Signs (24Hr): Vital Signs - 24 hr 10/12/23 16:38 10/13/23 08:00 Temperature 97.3 F 97.4 F Pulse Rate 117 H 113 H Respiratory Rate 18 18 Blood Pressure 120/72 122/77 Pulse Oximetry 96 98 Oxygen Delivery Method Room Air BMI result Body Mass Index 34.4 Labs 10/05/23 19:10 10/05/23 19:10 Imaging Radiology Impressions: ITS Impressions Ribs X-Ray 10/05/23 18:57 IMPRESSION: 1. No acute pulmonary disease. 2. No displaced rib fractures. Head CT 10/05/23 18:59 IMPRESSION: 1. No acute intracranial pathology. 2. No CT evidence of acute cervical spine fracture or traumatic subluxation Cervical Spine CT 10/05/23 19:05 IMPRESSION: 1. No acute intracranial pathology. 2. No CT evidence of acute cervical spine fracture or traumatic subluxation Chest X-Ray 10/10/23 06:45 IMPRESSION: No evidence for acute disease in the chest. Medications Medications Current Medications Acetaminophen (Acetaminophen 325 Mg Tablet) 650 mg PO Q6H PRN PRN Reason: Pain, Mild (Pain Scale 1-3) Last Admin: 10/06/23 18:26 Dose: 650 mg Al Hydroxide/Mg Hydroxide (Magnesium Hydrox/Alum Hydrox 30 Ml Oral.Susp) 30 ml PO Q6H PRN PRN Reason: Heartburn/Nausea Atorvastatin Calcium (Atorvastatin Calcium 10 Mg Tablet) 10 mg PO DAILY [facility] Last Admin: 10/13/23 08:48 Dose: 10 mg Famotidine (Famotidine 20 Mg Tablet) 40 mg PO BEDTIME [facility] Last Admin: 10/12/23 19:33 Dose: 40 mg Fluoxetine HCl (Fluoxetine Hcl 20 Mg Capsule) 40 mg PO DAILY [facility] Last Admin: 10/13/23 08:48 Dose: 40 mg Fluticasone Propionate (Fluticasone Propionate Nasal 16 Gm [place]) 1 spray NOSTRIL-B BID [facility] Last Admin: 10/13/23 08:51 Dose: 1 spray Hydroxyzine HCl (Hydroxyzine Hcl 25 Mg Tablet) 25 mg PO Q6H PRN PRN Reason: Anxiety Last Admin: 10/13/23 10:19 Dose: 25 mg Ibuprofen (Ibuprofen 600 Mg Tablet) 600 mg PO Q6H PRN PRN Reason: Pain, Moderate(Pain Scale 4-6) Last Admin: 10/12/23 11:35 Dose: 600 mg Lidocaine (Lidocaine 4 % Patch Adh..Patch) 0.5 patch TRANSDERMA BID PRN; Protocol PRN Reason: Pain, Moderate(Pain Scale 4-6) Last Admin: 10/12/23 16:08 Dose: 0.5 patch Lorazepam (Lorazepam 1 Mg Tablet) 1 mg PO QID [facility] Last Admin: 10/13/23 12:48 Dose: 1 mg Lorazepam (Lorazepam 1 Mg Tablet) 1 mg PO BID PRN PRN Reason: Agitation Last Admin: 10/13/23 10:19 Dose: 1 mg Magnesium Hydroxide (Milk Of Magnesia 30 Ml Oral.Susp) 30 ml PO DAILY PRN PRN Reason: Constipation Multivitamins/Vitamin C (Multivitamin Tablet) 1 tab PO DAILY [facility] Last Admin: 10/13/23 08:48 Dose: 1 tab Nicotine (Nicotine 21 Mg Patch.Td24) 21 mg TRANSDERMA DAILY [facility] Last Admin: 10/13/23 08:47 Dose: 21 mg Nicotine Polacrilex (Nicotine Polacrilex 2 Mg Gum) 4 mg BUCCAL Q2H PRN PRN Reason: Nicotine Cravings Last Admin: 10/12/23 10:00 Dose: 4 mg Nortriptyline HCl (Nortriptyline Hcl 25 Mg Capsule) 100 mg PO BEDTIME [facility] Last Admin: 10/12/23 19:33 Dose: 100 mg Pramoxine HCl (Pramoxine Hcl 1 % Rectal Foam 15 Gm) 1 appl [place] BID [facility] Last Admin: 10/13/23 10:34 Dose: Not Given Prazosin HCl (Prazosin Hcl 1 Mg Capsule) 3 mg PO BEDTIME [facility]; Protocol Last Admin: 10/12/23 19:33 Dose: 3 mg Pseudoephedrine HCl (Pseudoephedrine Hcl 30 Mg Tablet) 30 mg PO Q6H PRN PRN Reason: Congestion Last Admin: 10/12/23 10:00 Dose: 30 mg Thiamine HCl (Thiamine Hcl 100 Mg Tablet) 100 mg PO DAILY [facility] Last Admin: 10/13/23 08:48 Dose: 100 mg Trazodone HCl (Trazodone Hcl 100 Mg Tablet) 100 mg PO BEDTIME MRX1 PRN PRN Reason: Insomnia Zolpidem Tartrate (Zolpidem Tartrate 5 Mg Tablet) 10 mg PO BEDTIME PRN PRN Reason: Insomnia Last Admin: 10/12/23 19:33 Dose: 10 mg Allergies Allergies Allergy/AdvReac Type Severity Reaction Status Date / Time No Known Allergies Allergy Verified 10/05/23 18:29 Assessment & Plan Assessment & Plan (1) Brain lesion: Status: Acute Code(s): G93.9 - Disorder of brain, unspecified Assessment and Plan: There is a small mixed density left frontal cortical lesion, which could be a small venous angioma or cavernous angioma. In theory, it could result in focal seizure disorder but he does not have such history. His EEG was unremarkable. An MRI of brain with and without contrast can help to define it further. 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 He should stop using all drugs including marijuana and should not be prescribed Ambien or benzodiazepines. (3) Depression, major, severe recurrence: Status: Acute Code(s): F33.2 - Major depressive disorder, recurrent severe without psychotic features Plan 32 yo male, hx of major depression to ED after experiencing fugue when sleeping, having an altercation with police and ending up in [facility] the next a.m. without memory of events. Possible adverse response to Ambien. Reports hx of migraine, no MRI hx and is asking for a diagnostic eval to identify cause of sx. Plan: Neurology consult Chest xray-discomfort and 3PPD smoker Thiamine 100 mg daily MVI 1 tab daily EEG ?[facility] Eval when discharged Change Ambien to prn Increase Trazodone to 100 mg HS, MR x1 ?[facility] referral 10/11/23 Prazosin 1 mg HS for nightmare mgt. 10/12: Increase Prazosin to 3 mg HS. Proctofoam for hemorrhoids. Otherwise Continue current management and treatment plan. 10/13: Continue current management and treatment plan. Reason for continued inpatient stay Substantial Risk for: harm to self and inability to function Time Spent With Patient Time: Total time managing care of this patient today ____ minutes.
[2023-10-13] MEDS: Lidocaine 4 % Patch ADH..PATCH 0.5 PATCH TRANSDERMA (16:28)
[2023-10-13 17:07] VITALS: BP 128/79; PULSE 101; RESP 16; TEMP 36.6; O2SAT 98
[2023-10-13] MEDS: Famotidine 20 MG TABLET 40 MG PO (20:16)
[2023-10-13] MEDS: Nortriptyline HCl 25 MG CAPSULE 100 MG PO (20:16)
[2023-10-13] MEDS: Zolpidem Tartrate 5 MG TABLET 10 MG PO (20:16)
[2023-10-13] MEDS: Prazosin HCL 1 MG CAPSULE 3 MG PO (20:19)
[2023-10-13] MEDS: Pseudoephedrine HCL 30 MG TABLET PO (20:21)
[2023-10-13] MEDS: Ibuprofen 600 MG TABLET PO (21:31)
--- NOTE | 2023-10-13 23:08 | PC.NURSE ---
Adam complained to this senior copywriter that the Prazosin is not helping. I still wake up every night with the same dream. It's not really a dream it's a nightmare. Really it's like a night terror. It's from my PTSD. I don't really have much depression or anxiety it's the PTSD and the nightmares. patient counseled to speak with his provider in the morning about the effectiveness of his medications. monitor for safety, continue Plan of Care
[2023-10-14 08:10] VITALS: BP 114/71; PULSE 109; RESP 16; TEMP 36.3; O2SAT 98
[2023-10-14] MEDS: Multivitamin TABLET 1 TAB PO (08:19)
[2023-10-14] MEDS: FLUoxetine HCl 20 MG CAPSULE 40 MG PO (08:19)
[2023-10-14] MEDS: Fluticasone Propionate Nasal 16 GM SPRAY 1 SPRAY NOSTRIL-B (08:19)
[2023-10-14] MEDS: Atorvastatin Calcium 10 MG TABLET PO (08:19)
[2023-10-14] MEDS: Thiamine HCL 100 MG TABLET PO (08:19)
[2023-10-14] MEDS: Nicotine 21 MG PATCH.TD24 TRANSDERMA (08:19)
[2023-10-14] MEDS: Pramoxine HCl 1 % Rectal Foam 15 GM 1 APPL PR (08:27)
[2023-10-14] MEDS: Pseudoephedrine HCL 30 MG TABLET PO (08:28)
[2023-10-14] MEDS: LORazepam 1 MG TABLET PO (08:28)
--- NOTE | 2023-10-14 18:31 | PM.PSYDC ---
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 aneurysm Has provider been notified: No Attending physician on discharge: Servando Del Rosario Discharging clinician: Harper Mcneil DS: Diagnosis Discharge Diagnosis (1) Brain lesion: Status: Acute (2) Amnesia memory loss: Status: Acute (3) Depression, major, severe recurrence: Status: Acute DS: Medications Discharge Medications Home Medications: Home Medications Medication Instructions Recorded Confirmed nortriptyline 50 mg capsule 100 mg PO BEDTIME 03/06/23 10/05/23 atorvastatin 10 mg tablet 10 mg PO DAILY 10/05/23 10/05/23 famotidine 40 mg tablet 40 mg PO BEDTIME 10/05/23 10/05/23 fluoxetine 20 mg capsule 40 mg PO QAM 10/05/23 10/05/23 Previous Rx's Medication Instructions Recorded cyproheptadine 4 mg tablet 4 mg PO BEDTIME #7 tabs 10/14/23 fluticasone propionate 50 1 spray intranasal BID #1 inhaler 10/14/23 mcg/actuation nasal spray,suspension lorazepam 1 mg tablet 1 mg PO BID PRN Anxiety #14 tabs 10/14/23 multivitamin (Daily-Stewart tablet) 1 tab PO DAILY #30 tabs 10/14/23 nicotine (polacrilex) 2 mg gum 4 mg buccal Q2H PRN Nicotine 10/14/23 Cravings #60 ea nicotine 21 mg/24 hr daily 21 mg transdermal DAILY #30 ea 10/14/23 transdermal patch pramoxine 1 % topical foam 1 appl IN BID #60 applicators 10/14/23 thiamine mononitrate (vit B1) 100 100 mg PO DAILY #30 tabs 10/14/23 mg tablet Mental Status Exam Mental Status Exam Patient Appearance: Appropriate Patient Orientation: Person, Place, Time and Situation Level of Consciousness: Alert Patient Behavior: Talkative and Good Eye Contact Mood Description: Constricted Affect Description: Flat Patient Cognition Impaired: No Ability to Follow Directions: Good Speech Pattern: Spontaneous Speech Memory Description: Remote Impaired Judgement: Good Data Data Completed and Pending Completed studies during hospitalization [Text1]: 10/08/23 10/08/23 10/10/23 11:18 12:43 08:08 Estimat Average Glucose 94 Hemoglobin A1c % 4.9 Magnesium 2.4 Triglycerides 157 H Cholesterol 183 LDL Cholesterol, Calc 114 H HDL Cholesterol 38 L Vitamin B12 331 Folate 4.0 TSH 1.63 Free T4 0.97 Urine Color Yellow Urine Appearance Clear Urine pH 6.5 Ur Specific [place] 1.010 Urine Protein Negative Urine Glucose (UA) Negative Urine Ketones Negative Urine Blood Negative Urine Nitrite Negative Ur Leukocyte Esterase Negative COVID-19 (ELIEZER) Negative COVID-19 Clin Com See Note Imaging Diagnostic Imaging Impressions Ribs X-Ray 10/05/23 18:57 IMPRESSION: 1. No acute pulmonary disease. 2. No displaced rib fractures. Head CT 10/05/23 18:59 IMPRESSION: 1. No acute intracranial pathology. 2. No CT evidence of acute cervical spine fracture or traumatic subluxation Cervical Spine CT 10/05/23 19:05 IMPRESSION: 1. No acute intracranial pathology. 2. No CT evidence of acute cervical spine fracture or traumatic subluxation Chest X-Ray 10/10/23 06:45 IMPRESSION: No evidence for acute disease in the chest. DS: Summary Hospital Course Hospital Course: Admission to adult psychiatry for exacerbation of recurrent major depression, an episode of fugue where pt went to sleep and awoke in [place] [facility] after an argument with police, an attempt to via police and behavioral dyscontrol which he does not recall. Possible precipitants include use of Ambien, use of cannabis, use of benzodiazepines and a reported small mixed density left frontal cortical lesion. Pt requested MRI as he has never had this diagnostic test before. Neurology was consulted. Medications were evaluated and adjusted. Pt experienced no further episodes of fugue during admission. It was recommended that pt stop Ambien, cannabis and taper benzodiazepines. Pt signed a three day notice on admission and will follow up with neurology on 10/15/23 and with his out patient prescriber who is currently on vacation. Status at Discharge Functional status at discharge: independent ambulation Overall status at discharge: patient is back to baseline Time Spent with Patient Time attestation: Total time managing care of this patient today ____ minutes. Time spent: Less than 30 minutes Discharge Plan Discharge Anticipated Discharge Date/Time: 10/14/23 12:00 Patient Disposition: Home, Self-Care Discharge Diagnosis: Recurrent Major Depression Amnesia, Fugue episode Small Mixed Density L frontal Cortical Lesion Referrals: Suleman Julien (psychiatrist) [Other] - 10/21/23 1:30 pm (Hospital Discharge Appointment with psychiatrist Appointment is in person at psychiatrist's office in [place], [place]) Marce James MD [Physician] - 10/15/23 12:30 pm ((neurology/MRI) [address] [place] [address] [id number] ) Gopi Alcaraz DO [Primary Care Provider] - 10/16/23 11:00 am ( [facility]) Discharge Medications: New multivitamin [Daily-Stewart] Tablet 1 tab PO DAILY Qty: 30 0RF nicotine (polacrilex) 2 mg Gum 4 mg buccal Q2H PRN (Reason: Nicotine Cravings) Qty: 60 0RF nicotine 21 mg/24 hr Patch 24 Hour 21 mg transdermal DAILY Qty: 30 0RF fluticasone propionate 50 mcg/actuation [place],Suspension 1 spray intranasal BID Qty: 1 0RF pramoxine 1 % Foam 1 appl IN BID Qty: 60 0RF thiamine mononitrate (vit B1) 100 mg Tablet 100 mg PO DAILY Qty: 30 0RF cyproheptadine 4 mg tablet 4 mg PO BEDTIME Qty: 7 0RF Continued atorvastatin 10 mg tablet 10 mg PO DAILY famotidine 40 mg tablet 40 mg PO BEDTIME fluoxetine 20 mg capsule 40 mg PO QAM lorazepam 1 mg tablet 1 mg PO BID PRN (Reason: Anxiety) Qty: 14 0RF nortriptyline 50 mg capsule 100 mg PO BEDTIME Discontinued zolpidem 10 mg tablet 10 mg PO BEDTIME PRN (Reason: Insomnia) Vyvanse 70 mg capsule 70 mg PO DAILY Discharge Orders: Discharge Order (Routine); Ordered 10/14/23 Ordered By: Harper Mcneil Diet: Advance to usual diet Activity on Discharge: As tolerated Stand Alone Forms: Patient Portal Discharge page, Community Support Care Plan Goals: Mood and Behavioral Stabilization Health Concerns: Mood and Behavioral Stabilization Resolution of Episodes of Amnesia Plan of Treatment: Per Neurology- Stop Ambien, Taper Benzodiazepines, Stop Cannabis, Stop Vyvanse Attend scheduled appointments Take medications as directed No driving Dr. James will see you on 10/15/23 at 12:30pm. MRI scheduling will take place from there per his office. Resources for Family Support -- [facility] Crisis Services [phone] --[facility] [phone] Assessment: Pt discharges today on a three day notice of intent. Pt interviewed prior to discharge and found to be fully oriented and without SI/HI. Pt has insight and demonstrates good judgment in terms of wanting to pursue treatment.. Pt is not in imminent risk of harm to self or others and has a safety plan that includes presenting to the closest ER or calling 911 if feeling unsafe. Pt has been observed closely by nursing and unit staff throughout admission. Pt has not engaged in any behaviors that suggest dangerousness to self or others and has demonstrated appropriate behaviors and impulse control. Discharge Date/Time: 10/14/23 11:56
== END 2023-10-14 11:56 | disposition home or self-care (01) | DRG 885 ==
LOC: HO.ED 21:35 → HO.PM5 10-09 11:39
PROVIDERS: Emergency Medicine; Physician Assistant; Admitting Provider Clinical Nurse Specialist Psychiatric/Mental Health, Adult; Emergency Provider Student in an Organized Health Care Education/Training Program; PCP Family Medicine; Visit Provider Clinical Nurse Specialist Psychiatric/Mental Health, Adult
DX: F33.2 Major depressive disorder, recurrent severe without psychotic features (principal); R45.851 Suicidal ideations; F90.9 Attention-deficit hyperactivity disorder, unspecified type; G93.9 Disorder of brain, unspecified; F17.210 Nicotine dependence, cigarettes, uncomplicated; G47.33 Obstructive sleep apnea (adult) (pediatric); R41.3 Other amnesia; T42.6X5A Adverse effect of other antiepileptic and sedative-hypnotic drugs, initial encounter; Z71.6 Tobacco abuse counseling; Z20.822 Contact with and (suspected) exposure to COVID-19; Z79.51 Long term (current) use of inhaled steroids; Z79.899 Other long term (current) drug therapy
CPT/HCPCS: 36415; 70450; 71046; 71101; 72125; 80048; 80061; 80076; 80143; 80179; 80307; 81003; 82607; 82746; 83036; 83690; 83735; 84439; 84443; 85025; 87502; 87635; 93005; 95816; 99285; S9485

== ENCOUNTER 2023-10-09 11:25 | Outpatient (BNV) | payer OTHER, SELFPAY | END 2023-10-09 14:12 | PROVIDERS: Admitting Provider Clinical Nurse Specialist Psychiatric/Mental Health, Adult; Emergency Provider Student in an Organized Health Care Education/Training Program; PCP Family Medicine; Visit Provider Internal Medicine Cardiovascular Disease | DX: R94.31 Abnormal electrocardiogram [ECG] [EKG] (principal) | CPT/HCPCS: 93010 ==

== ENCOUNTER → 2023-10-09 11:25 | Outpatient (BNV) | payer OTHER, SELFPAY | PROVIDERS: Admitting Provider Clinical Nurse Specialist Psychiatric/Mental Health, Adult; Emergency Provider Student in an Organized Health Care Education/Training Program; PCP Family Medicine; Visit Provider Clinical Nurse Specialist Psychiatric/Mental Health, Adult | DX: F33.2 Major depressive disorder, recurrent severe without psychotic features (principal); G93.9 Disorder of brain, unspecified; R41.3 Other amnesia | CPT/HCPCS: 90792; 99231; 99232; 99238 ==

== ENCOUNTER → 2023-10-09 11:25 | Outpatient (BNV) | payer OTHER, SELFPAY | PROVIDERS: Admitting Provider Clinical Nurse Specialist Psychiatric/Mental Health, Adult; Emergency Provider Student in an Organized Health Care Education/Training Program; PCP Family Medicine; Visit Provider Psychiatry & Neurology Neurology | DX: G93.9 Disorder of brain, unspecified (principal); R41.3 Other amnesia | CPT/HCPCS: 99222 ==

== ENCOUNTER 2023-10-15 14:04 | Outpatient (REF) | payer MEDICARE, SELFPAY ==
[2023-10-15 16:14] LABS: Erythrocyte Sedimentation Rate 11 MM/HR (0-15)
[2023-10-16 08:03] LABS: HIV AB/AG Nonreactive (Nonreactive); HIV Num 1 0.05 S/CO (0.00-0.99)
[2023-10-16 08:44] LABS: Syphilis Screen Nonreactive (Nonreactive)
[2023-10-17 06:09] LABS: Lyme Abs Screen <0.90 index
[2023-10-23 15:27] LABS: Anti Nuclear Antibody Screen POSITIVE (NEGATIVE); Anti Nuclear Antibody Titer 1:40 titer
== END 2023-10-15 14:05 | disposition home or self-care (01) ==
LOC: HO.LAB 14:04
PROVIDERS: Visit Provider Psychiatry & Neurology Neurology
DX: G93.40 Encephalopathy, unspecified (principal)
CPT/HCPCS: 36415; 85652; 86038; 86039; 86617; 86618; 86780; 87389

== ENCOUNTER 2023-11-20 15:45 | Outpatient (REF) | payer MEDICARE, SELFPAY ==
--- NOTE | ~2023-11-20 | MR_ITS ---
EXAMINATION: MR BRAIN WITHOUT CONTRAST CLINICAL INFORMATION: Encephalopathy. COMPARISON: CT head from 10/05/2023. TECHNIQUE: MRI of the brain was obtained using routine sequences without contrast. FINDINGS: Mildly motion degraded exam. No focal restricted diffusion is demonstrated to suggest acute or subacute cerebral ischemia. No evidence of acute or chronic hemorrhagic products on heme-sensitive imaging. Normal parenchymal signal characteristics. The ventricles are normal in morphology and size. No abnormal mass effect. No midline shift. The hippocampi are symmetric in size, contour, and signal intensity. The temporal horns appear symmetric. Normal appearance of the pituitary gland. The suprasellar cistern remains widely patent. Normal positioning of the cerebellar tonsils. Normal arterial and venous vascular flow voids are present. Normal, homogeneous marrow signal. Mild atelectasis of the right maxillary sinus. Mild mucosal thickening of the paranasal sinuses. No signal abnormalities within the mastoids. MR/MR head/brain wo con IMPRESSION: 1. No acute intracranial abnormalities. 2. No MRI abnormalities to explain the patient's symptoms.
== END 2023-11-20 15:46 | disposition home or self-care (01) ==
LOC: HO.MRI 15:45
PROVIDERS: PCP Family Medicine; Visit Provider Psychiatry & Neurology Neurology
DX: G93.40 Encephalopathy, unspecified (principal)
CPT/HCPCS: 70551

== ENCOUNTER 2024-02-08 11:39 | Emergency (ER) | payer MEDICARE, SELFPAY ==
[2024-02-08] VITALS (8 sets, daily range): BP systolic 77–125; BP diastolic 49–89; PULSE 87–118; RESP 13–19; TEMP 36.4–36.6; O2SAT 92–99; BMI 36.0
--- NOTE | ~2024-02-08 | CT_ITS ---
EXAMINATION: CT HEAD WITHOUT CONTRAST CLINICAL INFORMATION: Altered mental status COMPARISON: MRI head from 11/20/2023 TECHNIQUE: Contiguous axial imaging was performed from the skull base to vertex without intravenous administration of contrast. This CT examination was performed using dose optimization techniques as appropriate, variously including the following: *Automated exposure control *Adjustment of mA and/or kV according to patient size (this includes techniques or standardized protocols for targeted exams where dose is matched to indication/reason for exam; i.e. extremities or head) *Use of iterative reconstruction technique DLP: 710 mGy-cm FINDINGS: There is no evidence of acute intracranial hemorrhage or territorial infarction. Dural calcification along the right frontal lobe. A few punctate foci of air noted in the cavernous sinus vasculature, potentially iatrogenic. No abnormal mass effect or midline shift is seen. Graham to white matter differentiation is well preserved. No extra-axial fluid collections are identified. The ventricles are normal in size. There is no abnormal attenuation within the brain parenchyma. The osseous structures and soft tissues are normal. The mastoid air cells and visualized portions of the paranasal sinuses are well aerated. CT/CT head/brain wo IV con IMPRESSION: 1. No acute intracranial pathology. 2. A few punctate foci of air noted in the cavernous sinus vasculature, potentially iatrogenic.
--- NOTE | 2024-02-08 11:41 | ED.GENADULT ---
HPI - General Adult General Chief complaint: Overdose Stated complaint: took too much medication Time Seen by Provider: 02/08/24 11:54 Source: patient and family Mode of arrival: ambulatory Limitations: other (poor historian ) History of Present Illness ED Provider: Kiley DESOUZA HPI narrative: This is a 33-year-old male history of substance use disorder, alcoholism, depression, ADHD, brain lesion, amnesia, presenting to the emergency department today after accidental overdose, patient reports that he accidentally took too much of his prescribed medications because he was having anxiety and could not sleep. Also reports worsening depression. Patient reports that he thinks he took his anxiety meds. Mom who is with him states that he is prescribed amitriptyline, trazodone and lorazepam. Unclear exactly how many he took of each however it is thought to be 2 or 3 of each. Unclear exactly whn these were taken. Mom states he is very sleepy and this is not like him at all, he was found sleeping on the kitchen floor. He denies suicidal ideation or intent. He is slurring his words in his drowsy in triage. He is unable to provide me with a full history and review of systems. Related Data Home Medications ?Medication ?Instructions ?Recorded ?Confirmed nortriptyline 50 mg capsule 100 mg PO BEDTIME 03/06/23 10/05/23 atorvastatin 10 mg tablet 10 mg PO DAILY 10/05/23 10/05/23 famotidine 40 mg tablet 40 mg PO BEDTIME 10/05/23 10/05/23 fluoxetine 20 mg capsule 40 mg PO QAM 10/05/23 10/05/23 Previous Rx's ?Medication ?Instructions ?Recorded cyproheptadine 4 mg tablet 4 mg PO BEDTIME #7 tabs 10/14/23 fluticasone propionate 50 1 spray intranasal BID #1 inhaler 10/14/23 mcg/actuation nasal spray,suspension lorazepam 1 mg tablet 1 mg PO BID PRN Anxiety #14 tabs 10/14/23 multivitamin (Daily-Stewart tablet) 1 tab PO DAILY #30 tabs 10/14/23 nicotine (polacrilex) 2 mg gum 4 mg buccal Q2H PRN Nicotine 10/14/23 Cravings #60 ea nicotine 21 mg/24 hr daily 21 mg transdermal DAILY #30 ea 10/14/23 transdermal patch pramoxine 1 % topical foam 1 appl [place] BID #60 applicators 10/14/23 thiamine mononitrate (vit B1) 100 100 mg PO DAILY #30 tabs 10/14/23 mg tablet Allergies Allergy/AdvReac Type Severity Reaction Status Date / Time Tetanus Vaccines and Toxoid Allergy Rash Verified 02/08/24 11:44 Review of Systems Review of Systems: Yes all other systems are reviewed and are negative [facility] Past Medical History Attestation statement: The following information was validated with the patient. Source: old records reviewed and nursing notes reviewed Medical History ADHD Cervical radiculopathy at C7 Injury of right hand Social History Social History Household Members: Family Housing: House Do you presently have visiting nurse or other home services: No Patient Tobacco Use Status: Current everyday Tobacco user Tobacco use type: Cigarette Cigarette Packs Per Day: 3 Cigarettes Per Day: 60.0 Years Smoked: 22 Smoked in Last 30 Days: Yes e-Cigarette/Vaping Use: Former Use Second Hand Smoke Exposure: Yes Use of substances other than those prescribed or required for medical reasons: Yes Substance Use Type: Marijuana Advance Directives: No Advance Directives Information Provided: No Do you have a plan to hurt others: No Plan service: Yes Sexual orientation: Straight/Heterosexual Physical Exam ED Vital Signs: Vital Signs - 24 hr 02/08/24 11:41 02/08/24 11:53 02/08/24 12:19 Temperature 98 F Pulse Rate 91 88 87 Respiratory Rate 19 16 17 Blood Pressure 97/51 L 99/67 77/49 L Pulse Oximetry 93 92 97 Oxygen Delivery Method Room Air Nasal Cannula Oxygen Flow Rate 3 02/08/24 13:29 02/08/24 14:05 02/08/24 16:16 Temperature Pulse Rate 91 95 98 Respiratory Rate 14 13 13 Blood Pressure 99/72 110/89 125/80 Pulse Oximetry 99 97 Oxygen Delivery Method Nasal Cannula Nasal Cannula Oxygen Flow Rate 2 2 BMI result Body Mass Index 36.0 vss Appearance: Alert to person, place, time and situation however difficult to arouse. No acute distress.? Head: Normocephalic, atraumatic, no step-offs or deformities Eyes: Pupils equal, round and reactive to light.? Neck: Normal inspection.? Neck supple.? CVS: Normal heart rate and rhythm.? Pulses normal.? Respiratory: No respiratory distress.? Breath sounds normal.? Abdomen: Soft and nontender.? Skin: Skin warm and dry.? Normal skin color.? Normal skin turgor.? Extremities: No lower extremity edema.? No calf ttp. 5/5 strength to bilateral upper and lower extremities Neuro: Alert to person, place, time and situation however difficult to arouse. No acute distress.? Course Course Course Narrative: This is a rapid medical exam performed by Raul García NP: Additional HPI, ROS, PE not included below will be deferred to primary provider. Patient is a 33-year-old male with history of ADHD, depression, brain lesion, amnesia presenting to the ED stating that he accidentally took too much of his medication because he was having an anxiety attack. Mother is with him, states he is prescribed lorazepam, trazodone, amitriptyline. Denies suicidal ideation. Slurring words and drowsy in triage. Patient unable to state when he took these medications. Mother reports earlier this am around 7:00 the house appeared in disarray, fell asleep on the kitchen floor. Plan: EKG, labs, urine drug screen, electrical discharge machine operator notified Reevaluation(s) Reevaluation #1: Call out to poison control for recomendations. EKG with slightly wide QRS will give 2 g of IV Mag. Time: 12:08 Reevaluation #2: Sign out to Jocelyn DESOUZA Time: 12:34 Reevaluation #3: Poison control recommended serial EKGs every 2 hours x3 Replenish potassium effervescent for, if QRS greater than 120 give 1 amp of sodium bicarb and repeat EKG Cardiac monitoring and seizure precautions Labs reassuring. Tox screen positive for benzos and THC CT head/brain wo IV con IMPRESSION: 1. No acute intracranial pathology. 2. A few punctate foci of air noted in the cavernous sinus vasculature, potentially iatrogenic. -physician observation initiated at 16:13 as patient needs more time for serial EKGs/monitoring and to be evaluated by CARE team. ED care transferred to LEONIDAS Castro Time: 16:12 Medications Administered Discontinued Medications Generic Name Dose Route Start Last Admin Trade Name Freq PRN Reason Stop Dose Admin Sodium Chloride 1,000 mls @ 999 mls/hr 02/08/24 12:00 02/08/24 13:32 Ns IV 02/08/24 13:00 Infused .Q1H1M FANNY Infusion Sodium Chloride 1,000 mls @ 999 mls/hr 02/08/24 12:30 02/08/24 13:32 Ns IV 02/08/24 13:30 Infused .Q1H1M FANNY Infusion Sodium Chloride 1,000 mls @ 999 mls/hr 02/08/24 12:30 02/08/24 13:32 Ns IV 02/08/24 13:30 Infused .Q1H1M FANNY Infusion Magnesium Sulfate 2 gm in 50 mls @ 25 mls/hr 02/08/24 12:19 02/08/24 16:09 Magnesium Sulfate/H2o IV 02/08/24 14:18 Infused ONCE ONE Infusion Naloxone HCl 0.4 mg 02/08/24 12:16 02/08/24 12:20 Naloxone Hcl 0.4 Mg/Ml Vial IVPUSH 02/08/24 12:17 0.4 mg STAT STA Administration Medical Decision Making Medical Decision Making [facility] Narrative: 1158 33-year-old male presents with accidental overdose on multiple prescribed meds. Physical exam alert and oriented x4 however drowsy and slow to respond to questions. History and physical exam concerning for accidental overdose with possible serotonin syndrome. Will rule out dysrhythmia, electrolyte abnormalities. Patient denies suicidal intent. No homicidal ideation. Concerns for anxiety and depression. Plan labs, imaging, cardiac monitoring, EKG, head CT. Will also obtain a urine Due to his presentation will give Narcan. Differential Diagnosis Differential Diagnoses: The differential diagnosis associated with the presentation includes History and physical exam concerning for accidental overdose with possible serotonin syndrome. Will rule out dysrhythmia, electrolyte abnormalities. Patient denies suicidal intent. No homicidal ideation. Concerns for anxiety and depression. Admission/Observation Consideration of admission/observation: Escalation of care including admission/observation considered possible Consult Healthcare Provider Management of the patient was discussed with: Radar Air Traffic Controller (poison control ) Lab Data [facility] Lab Attestation statement: I reviewed the patient's lab results. 02/08/24 13:10 02/08/24 13:10 Labs: Lab Results 02/08/24 02/08/24 Range/Units 13:10 13:59 WBC 10.8 (4.8-10.8) X10*3/uL RBC 3.94 L (4.60-5.80) X10*6/uL Hgb 12.1 L (14.0-18.0) g/dl Hct 35.1 L (42.0-52.0) % MCV 89.1 (80.0-98.0) fL MCH 30.7 (27.0-33.0) pg MCHC 34.5 (31.0-36.0) g/dl RDW 12.9 (11.0-16.0) % Plt Count 179 D (160-400) X10*3/uL MPV 10.4 (9.4-12.4) fL Immature Gran % (Auto) 0.6 H (0.0-0.4) % Neut % (Auto) 78.9 H (45-73) % Lymph % (Auto) 10.0 L (20-40) % Christian % (Auto) 9.3 (2-11) % Eos % (Auto) 0.6 (0-4) % Baso % (Auto) 0.6 (0-2) % Lymph # (Auto) 1.1 L (1.2-4.9) X10*3/uL Christian # (Auto) 1.0 (0.1-1.2) X10*3/uL Eos # (Auto) 0.1 (0.0-0.4) X10*3/uL Baso # (Auto) 0.1 (0.0-0.2) X10*3/uL Abs Immat Gran (auto) 0.07 H (0.00-0.03) X10*3/uL Absolute Neuts (auto) 8.5 H (2.0-8.3) x10*3/uL Absolute Nucleated RBC 0.000 (0.0-0.012) X10*3/uL Nucleated RBC % (auto) 0.0 (0.0-0.2) /100WBC Sodium 141 (135-145) mmol/L Potassium 3.9 (3.3-5.1) mmol/L Chloride 110 H (96-108) mmol/L Carbon Dioxide 21 L (22-29) mmol/L Anion Gap 14 (12-20) BUN 16 (9-16) mg/dL Creatinine 0.94 (0.5-1.4) mg/dL Estim Creat Clear Calc 126.2 Estimated GFR > 60 Random Glucose 106 (60-115) mg/dL Calcium 8.3 L D (8.4-10.2) mg/dL Magnesium 2.2 (1.6-2.6) mg/dL Total Bilirubin 0.4 (0.0-1.0) mg/dL AST 21 (5-37) U/L ALT 38 (0-40) U/L Alkaline Phosphatase 70 (39-117) U/L Total Protein 6.1 L (6.5-8.0) g/dL Albumin 3.9 (3.5-5.0) g/dL Urine Color Yellow Urine Appearance Clear Urine pH 6.0 (5.0-9.0) Ur Specific [place] 1.015 (1.005-1.025) Urine Protein Trace (Neg-Trace) mg/dL Urine Glucose (UA) Negative (Negative) mg/dL Urine Ketones Negative (Negative) mg/dL Urine Blood Negative (Negative) Urine Nitrite Negative (Negative) Ur Leukocyte Esterase Negative (Negative) Salicylates < 5.0 L (15-30) mg/dL Urine Opiates Screen Not Detected (Not Detect) Ur Buprenorphine Scrn Not Detected (Not Detect) ng/mL Ur Oxycodone Screen Not Detected (Not Detect) ng/mL Urine Methadone Screen Not Detected (Not Detect) ng/mL Urine Fentanyl Screen Not Detected (Not Detect) Acetaminophen < 3 (<30) mcg/mL Ur Barbiturates Screen Not Detected (Not Detect) Ur Phencyclidine Scrn Not Detected (Not Detect) Ur Amphetamines Screen Not Detected (Not Detect) U Benzodiazepines Scrn POSITIVE H (Not Detect) Urine Cocaine Screen Not Detected (Not Detect) U Marijuana (THC) Screen POSITIVE H (Not Detect) Ethyl Alcohol < 10 mg/dL Independent Interpretation I performed an independent interpretation of an: EKG (Vent. Rate : 090 BPM Atrial Rate : 090 BPM P-R Int : 180 ms QRS Dur : 112 ms QT Int : 380 ms P-R-T Axes : 005 004 011 degrees QTc Int : 464 ms Normal sinus rhythm Normal ECG When compared with ECG of 09-OCT-2023 14:12, No significant change was found) and CT Scan Radiology Impression Discussion of test interpretation with radiology: I have reviewed the radiologist's reading. External Record Review External record reviewed: Office record and Outpatient record Critical Care Time Critical Care Time Critical Care Time: Yes Total Critical Care Time: 45 Attestation: I attest to this time spent taking care of the patient, obtaining history, physical, reviewing labs, imaging, speaking to my attending, specialist or hospitalist. Discharge Plan Discharge Clinical Impression: Overdose, Depression, major, severe recurrence Patient Disposition: Still a Patient Prescriptions: No Action atorvastatin 10 mg tablet 10 mg PO DAILY famotidine 40 mg tablet 40 mg PO BEDTIME fluoxetine 20 mg capsule 40 mg PO QAM multivitamin [Daily-Stewart] Tablet 1 tab PO DAILY Qty: 30 0RF nicotine (polacrilex) 2 mg Gum 4 mg buccal Q2H PRN (Reason: Nicotine Cravings) Qty: 60 0RF nicotine 21 mg/24 hr Patch 24 Hour 21 mg transdermal DAILY Qty: 30 0RF fluticasone propionate 50 mcg/actuation [place],Suspension 1 spray intranasal BID Qty: 1 0RF pramoxine 1 % Foam 1 appl [place] BID Qty: 60 0RF thiamine mononitrate (vit B1) 100 mg Tablet 100 mg PO DAILY Qty: 30 0RF lorazepam 1 mg tablet 1 mg PO BID PRN (Reason: Anxiety) Qty: 14 0RF cyproheptadine 4 mg tablet 4 mg PO BEDTIME Qty: 7 0RF nortriptyline 50 mg capsule 100 mg PO BEDTIME Print Language: Nepali
--- NOTE | 2024-02-08 11:44 | ECG_ITS ---
Test Reason : OD Blood Pressure : / mmHG Vent. Rate : 090 BPM Atrial Rate : 090 BPM P-R Int : 180 ms QRS Dur : 112 ms QT Int : 380 ms P-R-T Axes : 005 004 011 degrees QTc Int : 464 ms Normal sinus rhythm Normal ECG When compared with ECG of 09-OCT-2023 14:12, No significant change was found Referred By: Deena García Electronically Signed By:Filiberto Richard
[2024-02-08] MEDS: Naloxone HCl 0.4 MG/ML VIAL IVPUSH (12:20)
[2024-02-08] MEDS: 0.9 % Sodium Chloride 1,000 ML 999 ML IV ×3 (12:20)
[2024-02-08] MEDS: Magnesium Sulfate/H2O 2 GM/50 ML PIGGYBACK IV (12:29)
--- NOTE | 2024-02-08 12:58 | PC.NURSE ---
called poison control at 1241 - according to pt he took 2-3 (1mg) Ativan, (100mg) Trazadone, and (25mg) Amitryptaline, pt also took his AM dose of Azstarys (5.2 mg) per poison control: Serial EKGS every 2 hours x3 if less than 4 - replenish K if QRS >120 - given 1 amp sodim bicarb then repeat EKG. 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
--- NOTE | 2024-02-08 13:04 | ECG_ITS ---
Test Reason : OVERDOSE Blood Pressure : / mmHG Vent. Rate : 096 BPM Atrial Rate : 096 BPM P-R Int : 180 ms QRS Dur : 100 ms QT Int : 378 ms P-R-T Axes : 057 008 009 degrees QTc Int : 477 ms Normal sinus rhythm Normal ECG When compared with ECG of 08-FEB-2024 12:00, No significant change was found Referred By: Jocelyn Holman Electronically Signed By:Filiberto Richard
[2024-02-08 13:22] LABS: Basophils Absolute Auto 0.1 X10*3/uL (0.0-0.2); Basophils Percent Auto 0.6 % (0-2); Eosinophils Absolute Auto 0.1 X10*3/uL (0.0-0.4); Eosinophils Percent Auto 0.6 % (0-4); Hematocrit 35.1 % (42.0-52.0); Hemoglobin 12.1 g/dl (14.0-18.0); Imm Gran Abs Auto 0.07 X10*3/uL (0.00-0.03); Imm Gran Pct Auto 0.6 % (0.0-0.4); Lymphocytes Absolute Auto 1.1 X10*3/uL (1.2-4.9); Mean Corpuscular HGB Conc 34.5 g/dl (31.0-36.0); Mean Corpuscular Hemoglobin 30.7 pg (27.0-33.0); Mean Corpuscular Volume 89.1 fL (80.0-98.0); Mean Platelet Volume 10.4 fL (9.4-12.4); Monocytes Percent Auto 9.3 % (2-11); Neutrophils Absolute Auto 8.5 x10*3/uL (2.0-8.3); Neutrophils Percent Auto 78.9 % (45-73); Platelet Count 179 X10*3/uL (160-400); Red Blood Count 3.94 X10*6/uL (4.60-5.80); Red Cell Distribution Width 12.9 % (11.0-16.0); White Blood Count 10.8 X10*3/uL (4.8-10.8)
[2024-02-08 13:39] LABS: Ethanol < 10 mg/dL
[2024-02-08 13:42] LABS: Alanine Aminotransferase 38 U/L (0-40); Albumin Level 3.9 g/dL (3.5-5.0); Alkaline Phosphatase 70 U/L (39-117); Anion Gap 14 (12-20); Aspartate Amino Transferase 21 U/L (5-37); Bilirubin Total 0.4 mg/dL (0.0-1.0); Blood Urea Nitrogen 16 mg/dL (9-16); Calcium 8.3 mg/dL (8.4-10.2); Carbon Dioxide 21 mmol/L (22-29); Chloride 110 mmol/L (96-108); Creatinine Clr Calc Pharmacy 126.2; Estimated Glomerular Filt Rate > 60; Glucose Random 106 mg/dL (60-115); Magnesium 2.2 mg/dL (1.6-2.6); Potassium 3.9 mmol/L (3.3-5.1); Sodium 141 mmol/L (135-145); Total Protein 6.1 g/dL (6.5-8.0)
[2024-02-08 13:48] LABS: Acetaminophen LAB < 3 mcg/mL (<30); Salicylate < 5.0 mg/dL (15-30)
[2024-02-08 14:10] LABS: Appearance Urine Clear; Color Urine Yellow; Glucose Urine UA Negative (Negative); Leukocyte Esterase Urine Negative (Negative); Nitrite Urine Negative (Negative); Specific Gravity - Urine 1.015 (1.005-1.025); Urine Blood Negative (Negative); Urine Ketones Negative (Negative); Urine Protein Trace mg/dL (Neg-Trace)
[2024-02-08 14:35] LABS: Amphetamine Screen Urine Not Detected (Not Detect); Barbiturates, Urine Not Detected (Not Detect); Benzodiazepines Screen Urine POSITIVE (Not Detect); Buprenorphine Scr Not Detected (Not Detect); Cannabinoid Screen Urine POSITIVE (Not Detect); Cocaine Screen Urine Not Detected (Not Detect); Fentanyl, urine Not Detected (Not Detect); Methadone Screen, Urine Not Detected (Not Detect); Opiate Screen Urine Not Detected (Not Detect); Oxycodone Screen Urine Not Detected (Not Detect); Phencyclidine Screen Urine Not Detected (Not Detect)
--- NOTE | 2024-02-08 18:14 | ECG_ITS ---
Test Reason : REPEAT Blood Pressure : / mmHG Vent. Rate : 096 BPM Atrial Rate : 096 BPM P-R Int : 182 ms QRS Dur : 102 ms QT Int : 374 ms P-R-T Axes : 002 000 005 degrees QTc Int : 472 ms Normal sinus rhythm Normal ECG When compared with ECG of 08-FEB-2024 16:36, No significant change was found Referred By: Gloria Patel Electronically Signed By:DARYL CLEMENS MD
[2024-02-08] MEDS: Nicotine Polacrilex 2 MG GUM BUCCAL (18:24)
--- NOTE | 2024-02-08 19:24 | PC.NURSE ---
This RN assumed pt care @ 1900. Pt sitting up in bed, ca&ox4, no signs of distress. Pt with care team now. Plan of care ongoing.
== END 2024-02-08 20:28 | disposition home or self-care (01) ==
PROVIDERS: Physician Assistant; Registered Nurse Emergency; Emergency Provider Emergency Medicine; PCP Family Medicine
DX: R53.83 Other fatigue (principal); T50.991A Poisoning by other drugs, medicaments and biological substances, accidental (unintentional), initial encounter; Y92.009 Unspecified place in unspecified non-institutional (private) residence as the place of occurrence of the external cause
CPT/HCPCS: 36415; 70450; 80053; 80143; 80179; 80307; 81003; 83735; 85025; 93005; 96361; 96365; 96366; 96375; 99285; J2310; J3475; S9485

== ENCOUNTER → 2024-02-08 11:44 | Outpatient (BNV) | payer MEDICARE, SELFPAY | PROVIDERS: Emergency Provider Emergency Medicine; PCP Family Medicine; Visit Provider Internal Medicine Cardiovascular Disease | DX: T50.901A Poisoning by unspecified drugs, medicaments and biological substances, accidental (unintentional), initial encounter (principal); F41.9 Anxiety disorder, unspecified | CPT/HCPCS: 93010 ==

== ENCOUNTER 2024-03-11 03:05 | Inpatient (IN) | payer OTHER, SELFPAY ==
--- NOTE | ~2024-03-11 | NM_ITS ---
CEREBRAL BLOOD FLOW STUDY CLINICAL INDICATION: A 33-year-old male with blackout, memory impairment and bizarre behavior. TECHNIQUE: 50 minutes following intravenous injection of 30 mCi of Technetium 99m <Neurolite> SPECT images of the brain was performed. Images were acquired in a 128 x 128 matrix with 128 stops utilizing a dual-headed camera. Images were then reconstructed in transverse, sagittal, and coronal slices and 3-D cine. FINDINGS: The SPECT images show physiologic tracer distribution throughout the brain parenchyma. Specific note is made of mild variable near symmetric decreased tracer avidity (hypoperfusion) within bilateral frontal and temporal lobes which may represent physiologic variation/within physiologic limits. Specifically, no evidence of any discrete focal abnormal increased or decreased tracer avidity identified on either side. NM/NM brain SPECT IMPRESSION: Nonspecific mild variable hypoperfusion at both frontal and temporal lobes, likely within variable physiologic limitations. No evidence of any discrete focal hypoperfusion on either side. Please note that the role of brain perfusion SPECT in this particular clinical scenario has not been studied in depth or is unknown ( [email or web address]://jnm.[email or web address]). If clinically appropriate, follow-up F-18 FDG PET/CT scan, LIZZY scan and/or functional MRI as appropriate may be considered for further clarification.
[2024-03-11 03:40] VITALS: BP 108/77; PULSE 92; RESP 18; TEMP 36.8; O2SAT 95; BMI 35.7
[2024-03-11 04:04] LABS: MANUAL DIFF FLAG NO
[2024-03-11 04:05] LABS: Basophils Absolute Auto 0.1 X10*3/uL (0.0-0.2); Basophils Percent Auto 0.7 % (0-2); Eosinophils Absolute Auto 0.1 X10*3/uL (0.0-0.4); Eosinophils Percent Auto 0.7 % (0-4); Hematocrit 39.4 % (42.0-52.0); Hemoglobin 13.9 g/dl (14.0-18.0); Imm Gran Abs Auto 0.21 X10*3/uL (0.00-0.03); Imm Gran Pct Auto 1.4 % (0.0-0.4); Lymphocytes Percent Auto 12.7 % (20-40); Mean Corpuscular HGB Conc 35.3 g/dl (31.0-36.0); Mean Corpuscular Hemoglobin 31.2 pg (27.0-33.0); Mean Corpuscular Volume 88.3 fL (80.0-98.0); Mean Platelet Volume 10.7 fL (9.4-12.4); Monocytes Absolute Auto 1.1 X10*3/uL (0.1-1.2); Neutrophils Absolute Auto 11.9 x10*3/uL (2.0-8.3); Neutrophils Percent Auto 77.5 % (45-73); Platelet Count 249 X10*3/uL (160-400); Red Blood Count 4.46 X10*6/uL (4.60-5.80); Red Cell Distribution Width 13.1 % (11.0-16.0); White Blood Count 15.3 X10*3/uL (4.8-10.8)
[2024-03-11 04:26] LABS: Alanine Aminotransferase 53 U/L (0-40); Albumin Level 4.2 g/dL (3.5-5.0); Alkaline Phosphatase 78 U/L (39-117); Anion Gap 17 (12-20); Aspartate Amino Transferase 26 U/L (5-37); Bilirubin Total 0.3 mg/dL (0.0-1.0); Blood Urea Nitrogen 19 mg/dL (9-16); Calcium 9.3 mg/dL (8.4-10.2); Carbon Dioxide 19 mmol/L (22-29); Chloride 109 mmol/L (96-108); Creatinine Clr Calc Pharmacy 99.2; Estimated Glomerular Filt Rate > 60; Ethanol < 10 mg/dL; Glucose Random 118 mg/dL (60-115); Potassium 4.1 mmol/L (3.3-5.1); Sodium 141 mmol/L (135-145); Total Protein 6.8 g/dL (6.5-8.0)
[2024-03-11 04:41] LABS: Amphetamine Screen Urine Not Detected (Not Detect); Barbiturates, Urine Not Detected (Not Detect); Benzodiazepines Screen Urine Not Detected (Not Detect); Buprenorphine Scr Not Detected (Not Detect); Cannabinoid Screen Urine POSITIVE (Not Detect); Cocaine Screen Urine Not Detected (Not Detect); Fentanyl, urine Not Detected (Not Detect); Methadone Screen, Urine Not Detected (Not Detect); Opiate Screen Urine Not Detected (Not Detect); Oxycodone Screen Urine Not Detected (Not Detect); Phencyclidine Screen Urine Not Detected (Not Detect)
--- NOTE | 2024-03-11 05:17 | ED.PSYCH ---
HPI - Psych General Chief Complaint: Psychiatric Symptoms Stated Complaint: attempted suicide, lac on arms Time Seen by Provider: 03/11/24 04:22 Source: patient Mode of arrival: ambulatory Limitations: no limitations History of Present Illness ED Provider: elvira NEGRON Narrative: Patient's history of depression does not have any job and lives with parents comes here as been feeling more depressed lately felt suicidal but angry and upset tried to cut his left forearm with razor blades has history of similar episode or depression 20 years ago denies any significant alcohol or drug use Related Data Home Medications ?Medication ?Instructions ?Recorded ?Confirmed nortriptyline 50 mg capsule 100 mg PO BEDTIME 03/06/23 10/05/23 atorvastatin 10 mg tablet 10 mg PO DAILY 10/05/23 10/05/23 famotidine 40 mg tablet 40 mg PO BEDTIME 10/05/23 10/05/23 fluoxetine 20 mg capsule 40 mg PO QAM 10/05/23 10/05/23 Previous Rx's ?Medication ?Instructions ?Recorded cyproheptadine 4 mg tablet 4 mg PO BEDTIME #7 tabs 10/14/23 fluticasone propionate 50 1 spray intranasal BID #1 inhaler 10/14/23 mcg/actuation nasal spray,suspension lorazepam 1 mg tablet 1 mg PO BID PRN Anxiety #14 tabs 10/14/23 multivitamin (Daily-Stewart tablet) 1 tab PO DAILY #30 tabs 10/14/23 nicotine (polacrilex) 2 mg gum 4 mg buccal Q2H PRN Nicotine 10/14/23 Cravings #60 ea nicotine 21 mg/24 hr daily 21 mg transdermal DAILY #30 ea 10/14/23 transdermal patch pramoxine 1 % topical foam 1 appl VT BID #60 applicators 10/14/23 thiamine mononitrate (vit B1) 100 100 mg PO DAILY #30 tabs 10/14/23 mg tablet Allergies Allergy/AdvReac Type Severity Reaction Status Date / Time Tetanus Vaccines and Toxoid Allergy Rash Verified 03/11/24 03:43 Review of Systems Review of Systems: Yes all other systems are reviewed and are negative PMFSH Past Medical History Medical History ADHD Cervical radiculopathy at C7 Injury of right hand Social History Social History Household Members: Family Housing: House Do you presently have visiting nurse or other home services: No Patient Tobacco Use Status: Current everyday Tobacco user Tobacco use type: Cigarette Cigarette Packs Per Day: 3 Cigarettes Per Day: 60.0 Years Smoked: 22 Smoked in Last 30 Days: Yes e-Cigarette/Vaping Use: Former Use Second Hand Smoke Exposure: Yes Use of substances other than those prescribed or required for medical reasons: No Substance Use Type: Marijuana Advance Directives: No service: Yes Sexual orientation: Straight/Heterosexual Physical Exam Vital Signs: Vital Signs: Last Vital Signs Temp 98.8 F 03/11/24 06:25 Pulse 90 03/11/24 06:25 Resp 16 03/11/24 06:25 BP 107/70 03/11/24 06:25 Pulse Ox 96 03/11/24 06:25 O2 Del Method Room Air 03/11/24 06:25 BMI result Body Mass Index 35.7 Appearance: Alert. Oriented X3. No acute distress. Eyes: PERRLA, No Nystagmus ENT: Pharynx normal. Oral Mucosa moist Neck: Normal inspection. Neck supple. CVS: Normal heart rate and rhythm. Pulses normal. Respiratory: No respiratory distress. Equal air entry bilateral, no wheezing/rales/rhonchi Abdomen: Soft and nontender. Bowel sounds are present, no mass palpable, no CVA tenderness Skin: Skin warm and dry. Normal skin color. Normal skin turgor. Extremities: No lower extremity edema. No calf tenderness multiple superficial multiple lacerations left forearm psych: Feel depressed and suicidal Neuro: Oriented X 3. No motor deficit. No sensory deficit.No cerebellar signs , cranial nerves II-XII intact Medications Administered Discontinued Medications Generic Name Dose Route Start Last Admin Trade Name Freq PRN Reason Stop Dose Admin Lorazepam 2 mg 03/11/24 05:57 03/11/24 06:07 Lorazepam 1 Mg Tablet PO 03/11/24 05:58 2 mg ONCE ONE Administration Medical Decision Making Medical Decision Making [facility] Narrative: Patient with major depression with SI with suicidal attempt get care team involved laceration were adam and glued together, patient is medically cleared Differential Diagnosis Differential Diagnoses: The differential diagnosis associated with the presentation includes Lab Data [facility] Lab Attestation statement: I reviewed the patient's lab results. 03/11/24 04:01 03/11/24 04:01 Labs: Lab Results 03/11/24 03/11/24 Range/Units 04:01 04:23 WBC 15.3 H (4.8-10.8) X10*3/uL RBC 4.46 L (4.60-5.80) X10*6/uL Hgb 13.9 L (14.0-18.0) g/dl Hct 39.4 L (42.0-52.0) % MCV 88.3 (80.0-98.0) fL MCH 31.2 (27.0-33.0) pg MCHC 35.3 (31.0-36.0) g/dl RDW 13.1 (11.0-16.0) % Plt Count 249 D (160-400) X10*3/uL MPV 10.7 (9.4-12.4) fL Immature Gran % (Auto) 1.4 H (0.0-0.4) % Neut % (Auto) 77.5 H (45-73) % Lymph % (Auto) 12.7 L (20-40) % [place] % (Auto) 7.0 (2-11) % Eos % (Auto) 0.7 (0-4) % Baso % (Auto) 0.7 (0-2) % Lymph # (Auto) 2.0 (1.2-4.9) X10*3/uL [place] # (Auto) 1.1 (0.1-1.2) X10*3/uL Eos # (Auto) 0.1 (0.0-0.4) X10*3/uL Baso # (Auto) 0.1 (0.0-0.2) X10*3/uL Abs Immat Gran (auto) 0.21 H (0.00-0.03) X10*3/uL Absolute Neuts (auto) 11.9 H (2.0-8.3) x10*3/uL Absolute Nucleated RBC 0.000 (0.0-0.012) X10*3/uL Nucleated RBC % (auto) 0.0 (0.0-0.2) /100WBC Sodium 141 (135-145) mmol/L Potassium 4.1 (3.3-5.1) mmol/L Chloride 109 H (96-108) mmol/L Carbon Dioxide 19 L (22-29) mmol/L Anion Gap 17 (12-20) BUN 19 H (9-16) mg/dL Creatinine 1.23 (0.5-1.4) mg/dL Estim Creat Clear Calc 99.2 Estimated GFR > 60 Random Glucose 118 H (60-115) mg/dL Calcium 9.3 D (8.4-10.2) mg/dL Total Bilirubin 0.3 (0.0-1.0) mg/dL AST 26 (5-37) U/L ALT 53 H (0-40) U/L Alkaline Phosphatase 78 (39-117) U/L Total Protein 6.8 (6.5-8.0) g/dL Albumin 4.2 (3.5-5.0) g/dL Urine Opiates Screen Not Detected (Not Detect) Ur Buprenorphine Scrn Not Detected (Not Detect) ng/mL Ur Oxycodone Screen Not Detected (Not Detect) ng/mL Urine Methadone Screen Not Detected (Not Detect) ng/mL Urine Fentanyl Screen Not Detected (Not Detect) Ur Barbiturates Screen Not Detected (Not Detect) Ur Phencyclidine Scrn Not Detected (Not Detect) Ur Amphetamines Screen Not Detected (Not Detect) U Benzodiazepines Scrn Not Detected (Not Detect) Urine Cocaine Screen Not Detected (Not Detect) U Marijuana (THC) Screen POSITIVE H (Not Detect) Ethyl Alcohol < 10 mg/dL Procedures Laceration Laceration 1: Site: upper extremity Side (If applicable): left Size (cm): 15 Description: linear Depth: simple, single layer Skin layer closed with: other (Seven adam and skin glue) Discharge Plan Discharge Clinical Impression: Depression, major, severe recurrence, Suicidal behavior with attempted self-injury, Laceration of forearm, left Patient Disposition: Still a Patient Prescriptions: No Action atorvastatin 10 mg tablet 10 mg PO DAILY famotidine 40 mg tablet 40 mg PO BEDTIME fluoxetine 20 mg capsule 40 mg PO QAM multivitamin [Daily-Stewart] Tablet 1 tab PO DAILY Qty: 30 0RF nicotine (polacrilex) 2 mg Gum 4 mg buccal Q2H PRN (Reason: Nicotine Cravings) Qty: 60 0RF nicotine 21 mg/24 hr Patch 24 Hour 21 mg transdermal DAILY Qty: 30 0RF fluticasone propionate 50 mcg/actuation [place],Suspension 1 spray intranasal BID Qty: 1 0RF pramoxine 1 % Foam 1 appl VT BID Qty: 60 0RF thiamine mononitrate (vit B1) 100 mg Tablet 100 mg PO DAILY Qty: 30 0RF lorazepam 1 mg tablet 1 mg PO BID PRN (Reason: Anxiety) Qty: 14 0RF cyproheptadine 4 mg tablet 4 mg PO BEDTIME Qty: 7 0RF nortriptyline 50 mg capsule 100 mg PO BEDTIME Interventions: [place]-Suicide Risk Severity Scale Last Done: 03/11/24 03:45 Print Language: [place] Islander
[2024-03-11] MEDS: LORazepam 1 MG TABLET 2 MG PO (06:07)
[2024-03-11 06:25] VITALS: BP 107/70; PULSE 90; RESP 16; TEMP 37.1; O2SAT 96
[2024-03-11 10:15] VITALS: BP 108/68; PULSE 60; RESP 15; TEMP 36.5; O2SAT 99
[2024-03-11 10:15] LABS: Appearance Urine Cloudy; Color Urine Dark Yellow; Glucose Urine UA Negative (Negative); Leukocyte Esterase Urine Negative (Negative); Nitrite Urine Negative (Negative); PH 5.5 (5.0-9.0); Specific Gravity - Urine 1.025 (1.005-1.025); Urine Blood Negative (Negative); Urine Ketones Trace mg/dL (Negative); Urine Protein Trace mg/dL (Neg-Trace)
--- NOTE | 2024-03-11 13:02 | PC.NURSE ---
Patients family arrived asking for their car keys that were in this patients belongings. Patient is ok with us handing over the car keys to his family. [place] removed from belongings in locker 10 of pod and the remainder of belongings were placed back into the locker. Qiana GARCIA delivered keys to family.
--- NOTE | 2024-03-11 16:53 | PC.NURSE ---
Pt gave this RN permission to speak with his parents. Pt father Chris Knapp ( ) and Mothr Judy Knapp ( ). Both the pt and his parents requested the pt psychiatrist Dr. Milo Del Angel be informed/updated of his admission and plan.
[2024-03-11 17:38] VITALS: BP 143/70; PULSE 84; RESP 18; TEMP 36.4; O2SAT 96
--- NOTE | 2024-03-11 18:52 | PC.ADMIT ---
Adam Knapp was admitted to [facility] at 1640 from [facility] Pod on CV for treatment of MDD with a suicidal attempt, cutting left forearm with a razor. Pt feels that ?life is not worth living.? Pt cut arm, but said, ?it didn?t bleed enough so he drove to the hospital.? Pt is A&O X4, mood is depressed with a sad, tearful affect. Patient is calm and cooperative. Pt denies SI/HI/AH/VH at this time. Pt agrees to take medications, but says they don?t work. Thought process is linear. Pt reports a ?fair? appetite with no recent wt change. He says his sleep is ?horrible with frequent awakenings and nightmares.? Pt lives with both his parents. Tox screen is positive for THC, with a hx of ETOH use , quitting in 2018, pain pill addiction ending in 2019. Pt is a current smoker and nicotine? replacement ordered. Pt has no acute medical issues. Pt does have 7 adam in the left forearm self inflicted at his home. Pt was placed 15 minute safety Checks.
[2024-03-11 19:01] VITALS: BMI 37.8
[2024-03-11] MEDS: Fluticasone Propionate Nasal 16 GM SPRAY 1 SPRAY NOSTRIL-B (20:38)
[2024-03-11] MEDS: Nortriptyline HCl 25 MG CAPSULE 100 MG PO (20:39)
[2024-03-11] MEDS: Zolpidem Tartrate 5 MG TABLET 10 MG PO (20:39)
[2024-03-11] MEDS: LORazepam 1 MG TABLET PO (20:44)
[2024-03-12 07:00] VITALS: BMI 38.0
[2024-03-12 08:00] VITALS: BP 88/52; PULSE 51; RESP 14; TEMP 36.8; O2SAT 94
--- NOTE | 2024-03-12 08:00 | ECG_ITS ---
Test Reason : inc qtc Blood Pressure : / mmHG Vent. Rate : 087 BPM Atrial Rate : 087 BPM P-R Int : 176 ms QRS Dur : 102 ms QT Int : 368 ms P-R-T Axes : 006 011 008 degrees QTc Int : 442 ms Normal sinus rhythm Normal ECG When compared with ECG of 08-FEB-2024 18:42, No significant change was found Referred By: Servando Del Rosario Electronically Signed By:GLENROY MERCHANT
[2024-03-12 08:02] LABS: Estimated Average Glucose 91 mg/dL; Hemoglobin A1c % 4.8 % (<6.0)
[2024-03-12 08:12] LABS: Cholesterol 257 mg/dL (<200); HDL Cholesterol 35 mg/dL (>40); LDL Cholesterol Calculated 170 mg/dL (<100); Triglycerides 262 mg/dL (<150)
[2024-03-12 08:28] LABS: Free T4 (Free Thyroxine) 0.89 ng/dL (0.71-1.85)
[2024-03-12 08:41] LABS: Folate 10.3 ng/mL (> or = 4.0); Vitamin B12 357 pg/mL (200-900)
[2024-03-12 08:52] VITALS: BP 95/56; PULSE 86
[2024-03-12] MEDS: Nicotine 21 MG PATCH.TD24 TRANSDERMA (10:14)
[2024-03-12] MEDS: LORazepam 1 MG TABLET PO ×2 (10:15→19:55)
--- NOTE | 2024-03-12 10:19 | HO.PSYCHPN ---
Subjective Subjective Reason For Visit: SI Diagnostics Vital Signs (24Hr): Vital Signs - 24 hr 03/11/24 17:38 03/12/24 08:00 03/12/24 08:52 Temperature 97.5 F 98.2 F Pulse Rate 84 51 86 Respiratory Rate 18 14 Blood Pressure 143/70 H 88/52 L 95/56 L Pulse Oximetry 96 94 Oxygen Delivery Method Room Air Room Air BMI result Body Mass Index 38.0 Labs 03/11/24 04:01 03/11/24 04:01 Labs: Laboratory Results - last 48 hr 03/11/24 03/11/24 03/11/24 04:01 04:23 04:26 WBC 15.3 H RBC 4.46 L Hgb 13.9 L Hct 39.4 L MCV 88.3 MCH 31.2 MCHC 35.3 RDW 13.1 Plt Count 249 D MPV 10.7 Immature Gran % (Auto) 1.4 H Neut % (Auto) 77.5 H Lymph % (Auto) 12.7 L [place] % (Auto) 7.0 Eos % (Auto) 0.7 Baso % (Auto) 0.7 Lymph # (Auto) 2.0 [place] # (Auto) 1.1 Eos # (Auto) 0.1 Baso # (Auto) 0.1 Abs Immat Gran (auto) 0.21 H Absolute Neuts (auto) 11.9 H Absolute Nucleated RBC 0.000 Nucleated RBC % (auto) 0.0 Sodium 141 Potassium 4.1 Chloride 109 H Carbon Dioxide 19 L Anion Gap 17 BUN 19 H Creatinine 1.23 Estim Creat Clear Calc 99.2 Estimated GFR > 60 Random Glucose 118 H Estimat Average Glucose Hemoglobin A1c % Calcium 9.3 D Total Bilirubin 0.3 AST 26 ALT 53 H Alkaline Phosphatase 78 Total Protein 6.8 Albumin 4.2 Triglycerides Cholesterol LDL Cholesterol, Calc HDL Cholesterol Vitamin B12 Folate TSH Free T4 Urine Color Dark Yellow Urine Appearance Cloudy Urine pH 5.5 Ur Specific [place] 1.025 Urine Protein Trace Urine Glucose (UA) Negative Urine Ketones Trace Urine Blood Negative Urine Nitrite Negative Ur Leukocyte Esterase Negative Urine Opiates Screen Not Detected Ur Buprenorphine Scrn Not Detected Ur Oxycodone Screen Not Detected Urine Methadone Screen Not Detected Urine Fentanyl Screen Not Detected Ur Barbiturates Screen Not Detected Ur Phencyclidine Scrn Not Detected Ur Amphetamines Screen Not Detected U Benzodiazepines Scrn Not Detected Urine Cocaine Screen Not Detected U Marijuana (THC) Screen POSITIVE H Ethyl Alcohol < 10 03/12/24 07:29 WBC RBC Hgb Hct MCV MCH MCHC RDW Plt Count MPV Immature Gran % (Auto) Neut % (Auto) Lymph % (Auto) [place] % (Auto) Eos % (Auto) Baso % (Auto) Lymph # (Auto) [place] # (Auto) Eos # (Auto) Baso # (Auto) Abs Immat Gran (auto) Absolute Neuts (auto) Absolute Nucleated RBC Nucleated RBC % (auto) Sodium Potassium Chloride Carbon Dioxide Anion Gap BUN Creatinine Estim Creat Clear Calc Estimated GFR Random Glucose Estimat Average Glucose 91 Hemoglobin A1c % 4.8 Calcium Total Bilirubin AST ALT Alkaline Phosphatase Total Protein Albumin Triglycerides 262 H Cholesterol 257 H LDL Cholesterol, Calc 170 H HDL Cholesterol 35 L Vitamin B12 357 Folate 10.3 TSH 1.80 Free T4 0.89 Urine Color Urine Appearance Urine pH Ur Specific [place] Urine Protein Urine Glucose (UA) Urine Ketones Urine Blood Urine Nitrite Ur Leukocyte Esterase Urine Opiates Screen Ur Buprenorphine Scrn Ur Oxycodone Screen Urine Methadone Screen Urine Fentanyl Screen Ur Barbiturates Screen Ur Phencyclidine Scrn Ur Amphetamines Screen U Benzodiazepines Scrn Urine Cocaine Screen U Marijuana (THC) Screen Ethyl Alcohol Medications Medications Current Medications Acetaminophen (Acetaminophen 325 Mg Tablet) 650 mg PO Q6H PRN PRN Reason: Headache/Pain Mild Scale (1-3) Al Hydroxide/Mg Hydroxide (Magnesium Hydrox/Alum Hydrox 30 Ml Oral.Susp) 30 ml PO Q6H PRN PRN Reason: Heartburn/Nausea Amitriptyline HCl (Amitriptyline Hcl 25 Mg Tablet) 25 mg PO BEDTIME [facility] Last Admin: 03/12/24 01:44 Dose: Not Given Fluticasone Propionate (Fluticasone Propionate Nasal 16 Gm [place]) 1 spray NOSTRIL-B BID [facility], [facility] Last Admin: 03/12/24 09:11 Dose: Not Given Hydroxyzine HCl (Hydroxyzine Hcl 25 Mg Tablet) 25 mg PO Q6H PRN PRN Reason: Anxiety Lorazepam (Lorazepam 1 Mg Tablet) 1 mg PO BID PRN PRN Reason: Anxiety Last Admin: 03/12/24 10:15 Dose: 1 mg Magnesium Hydroxide (Milk Of Magnesia 30 Ml Oral.Susp) 30 ml PO DAILY PRN PRN Reason: Constipation Multivitamins/Vitamin C (Multivitamin Tablet) 1 tab PO DAILY [facility] Last Admin: 03/12/24 09:11 Dose: Not Given Nicotine (Nicotine 21 Mg Patch.Td24) 21 mg TRANSDERMA DAILY [facility] Last Admin: 03/12/24 10:14 Dose: 21 mg Nicotine Polacrilex (Nicotine Polacrilex 2 Mg Gum) 4 mg BUCCAL Q2H PRN PRN Reason: Nicotine Cravings Quetiapine Fumarate (Quetiapine Fumarate 25 Mg Tablet) 25 mg PO Q4H PRN PRN Reason: anxiety/restlessness Trazodone HCl (Trazodone Hcl 50 Mg Tablet) 50 mg PO BEDTIME MRX1 PRN PRN Reason: Insomnia Zolpidem Tartrate (Zolpidem Tartrate 5 Mg Tablet) 10 mg PO BEDTIME [facility] Last Admin: 03/11/24 20:39 Dose: 10 mg Allergies Allergies Allergy/AdvReac Type Severity Reaction Status Date / Time Tetanus Vaccines and Toxoid Allergy Rash Verified 03/11/24 03:43 Assessment & Plan Time Spent With Patient Time: Total time managing care of this patient today ____ minutes.
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
[2024-03-12 12:37] VITALS: BP 108/59; PULSE 91
[2024-03-12] MEDS: LORazepam 2 MG/ML VIAL IVPUSH (15:29)
--- NOTE | 2024-03-12 15:49 | PC.NURSE ---
Pt was administered a MOCA on 03/12/2024. Pt scored a 23 out of 30, indicative of mild cognitive impairment. Pt's provider Dr. Servando Del Rosario was notified and the completed assessment was placed in the pt's chart.
[2024-03-12] MEDS: Zolpidem Tartrate 5 MG TABLET 10 MG PO (19:55)
[2024-03-12 20:00] VITALS: BP 102/59; PULSE 101; RESP 18; TEMP 36.4; O2SAT 93
[2024-03-12] MEDS: Divalproex Sodium ER 500 MG TAB.ER.24H PO (20:13)
[2024-03-12] MEDS: QUEtiapine Fumarate 25 MG TABLET PO (20:54)
[2024-03-12] MEDS: traZODone HCL 50 MG TABLET PO (20:54)
[2024-03-12] MEDS: hydrOXYzine HCL 25 MG TABLET PO (20:54)
[2024-03-13 07:40] VITALS: BP 88/56; PULSE 95; RESP 16; TEMP 36.3; O2SAT 95
[2024-03-13 08:18] VITALS: BP 88/56; PULSE 95; RESP 16; TEMP 36.3; O2SAT 95
[2024-03-13] MEDS: Fluticasone Propionate Nasal 16 GM SPRAY 1 SPRAY NOSTRIL-B ×2 (09:25→20:40)
[2024-03-13] MEDS: Nicotine 21 MG PATCH.TD24 TRANSDERMA (09:26)
[2024-03-13] MEDS: Multivitamin TABLET 1 TAB PO (09:26)
[2024-03-13] MEDS: LORazepam 1 MG TABLET PO ×2 (09:41→13:20)
[2024-03-13] MEDS: Cariprazine HCl 1.5 MG CAPSULE PO (12:10)
[2024-03-13] MEDS: Acetaminophen 325 MG TABLET 650 MG PO (13:20)
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
[2024-03-13 20:00] VITALS: BP 134/84; PULSE 111; RESP 18; TEMP 36.7; O2SAT 97
[2024-03-13] MEDS: Divalproex Sodium ER 500 MG TAB.ER.24H PO (20:30)
[2024-03-13] MEDS: Mirtazapine 7.5 MG TABLET PO (20:31)
[2024-03-13] MEDS: Zolpidem Tartrate 5 MG TABLET 10 MG PO (20:31)
[2024-03-13] MEDS: hydrOXYzine HCL 25 MG TABLET PO (20:42)
--- NOTE | 2024-03-13 23:16 | P.PNPSI_ITS ---
Subjective Subjective Date of Service: 03/13/24 Reason For Visit: SI Subjective Notes: Conditional Voluntary Interim History: Patient seen psychiatric follow-up patient's mood remains flattened dysphoric denies active SI. Case reviewed with Dr. Rueda his outpatient psychiatrist we discussed olanzapine p.r.n. Depakote mirtazapine for sleep. Patient depressed ruminates regarding the past quite flat lot of anger and resentment. Status post significant forearm laceration he was ambivalent regarding suicide he remains connected with his 16-year-old daughter Mental Status Exam Mental Status Exam Patient Appearance: Unkempt Patient Orientation: Person, Place, Time and Situation Level of Consciousness: Alert Patient Behavior: Guarded, Talkative and Good Eye Contact Mood Description: Depressed and Angry Affect Description: Depressed and Flat Patient Cognition Impaired: Yes Ability to Follow Directions: Good Speech Pattern: Spontaneous Speech Memory Description: Episodic Impaired Hallucinations: None Delusions: Not Present Perceptual Disturbances: Depersonalization Thought Process: Rumination Thought Content: positive for Preoccupation, positive for Suicidal Ideation (Denies current active plan) and negative for Homicidal Ideation Judgement: Fair Judgement and Insight: Fixed negative beliefs limited stress tolerance denies active SI Diagnostics Vital Signs (24Hr): Vital Signs - 24 hr 03/13/24 07:40 03/13/24 08:18 03/13/24 20:00 Temperature 97.3 F 97.3 F 98.1 F Pulse Rate 95 95 111 H Respiratory Rate 16 16 18 Blood Pressure 88/56 L 88/56 L 134/84 Pulse Oximetry 95 95 97 Oxygen Delivery Method Room Air Room Air Room Air BMI result Body Mass Index 38.0 Labs 03/11/24 04:01 03/11/24 04:01 Labs: Laboratory Results - last 48 hr 03/12/24 07:29 Estimat Average Glucose 91 Hemoglobin A1c % 4.8 Triglycerides 262 H Cholesterol 257 H LDL Cholesterol, Calc 170 H HDL Cholesterol 35 L Vitamin B12 357 Folate 10.3 TSH 1.80 Free T4 0.89 Imaging Radiology Impressions: ITS Impressions SPECT Scan-Brain NM 03/12/24 17:15 IMPRESSION: Nonspecific mild variable hypoperfusion at both frontal and temporal lobes, likely within variable physiologic limitations. No evidence of any discrete focal hypoperfusion on either side. Please note that the role of brain perfusion SPECT in this particular clinical scenario has not been studied in depth or is unknown ( https://jnm.snmjournals.org/content/42/2/259#[email or web address]). If clinically appropriate, follow-up F-18 FDG PET/CT scan, LIZZY scan and/or functional MRI as appropriate may be considered for further clarification. Medications Medications Current Medications Acetaminophen (Acetaminophen 325 Mg Tablet) 650 mg PO Q6H PRN PRN Reason: Headache/Pain Mild Scale (1-3) Last Admin: 03/13/24 13:20 Dose: 650 mg Al Hydroxide/Mg Hydroxide (Magnesium Hydrox/Alum Hydrox 30 Ml Oral.Susp) 30 ml PO Q6H PRN PRN Reason: Heartburn/Nausea Cariprazine (Cariprazine Hcl 1.5 Mg Capsule) 1.5 mg PO DAILY [facility] Last Admin: 03/13/24 12:10 Dose: 1.5 mg Divalproex Sodium (Divalproex Sodium Er 500 Mg Tab.Er.24h) 500 mg PO BEDTIME [facility] Last Admin: 03/13/24 20:30 Dose: 500 mg Fluticasone Propionate (Fluticasone Propionate Nasal 16 Gm [place]) 1 spray NOSTRIL-B BID [facility] Last Admin: 03/13/24 20:40 Dose: 1 spray Hydroxyzine HCl (Hydroxyzine Hcl 25 Mg Tablet) 25 mg PO Q6H PRN PRN Reason: Anxiety Last Admin: 03/13/24 20:42 Dose: 25 mg Lorazepam (Lorazepam 1 Mg Tablet) 1 mg PO BID PRN PRN Reason: Anxiety Last Admin: 03/13/24 13:20 Dose: 1 mg Lorazepam (Lorazepam 2 Mg/Ml Vial) 2 mg IVPUSH ONCE PRN PRN Reason: during procedure anxiety Last Admin: 03/12/24 15:29 Dose: 2 mg Magnesium Hydroxide (Milk Of Magnesia 30 Ml Oral.Susp) 30 ml PO DAILY PRN PRN Reason: Constipation Mirtazapine (Mirtazapine 7.5 Mg Tablet) 7.5 mg PO BEDTIME [facility] Last Admin: 03/13/24 20:31 Dose: 7.5 mg Multivitamins/Vitamin C (Multivitamin Tablet) 1 tab PO DAILY [facility] Last Admin: 03/13/24 09:26 Dose: 1 tab Nicotine (Nicotine 21 Mg Patch.Td24) 21 mg TRANSDERMA DAILY [facility] Last Admin: 03/13/24 09:26 Dose: 21 mg Nicotine Polacrilex (Nicotine Polacrilex 2 Mg Gum) 4 mg BUCCAL Q2H PRN PRN Reason: Nicotine Cravings Olanzapine (Olanzapine 5 Mg Tablet) 5 mg PO BID PRN PRN Reason: severe anxiety Zolpidem Tartrate (Zolpidem Tartrate 5 Mg Tablet) 10 mg PO BEDTIME [facility]ANNY Last Admin: 03/13/24 20:31 Dose: 10 mg Allergies Allergies Allergy/AdvReac Type Severity Reaction Status Date / Time Tetanus Vaccines and Toxoid Allergy Rash Verified 03/11/24 03:43 Assessment & Plan Assessment & Plan (1) Suicidal behavior with attempted self-injury: Status: Acute Code(s): T14.91XA - Suicide attempt, initial encounter (2) Depression, major, severe recurrence: Status: Acute Code(s): F33.2 - Major depressive disorder, recurrent severe without psychotic features (3) Abdominal pain: Status: Acute Code(s): R10.9 - Unspecified abdominal pain (4) Amnesia memory loss: Status: Acute Code(s): R41.3 - Other amnesia Plan 33-year-old male history of recurrent depression PTSD admitted to [facility] after a suicide attempt and significantly lacerating his forearm with hx of laparotomy and repair of umbilical hernia now c/o abdominal pain at his umbilicus. Cannot clearly palpate a recurrent hernia at the umbilicus and he has only mild tenderness. He will need a CT scan abd/pelvis to evaluate. This can be done as an outpatient and can be seen in the general surgery office after discharge. Left forearm lacerations are clean and well approximated. Adam can be removed 7-10 days after placement. 03/13/2024 Above surgical consult read and appreciated patient to hold off on removing adam. The patient's mood is flat he was agreeable to Depakote discussed use of mirtazapine at bedtime Vraylar for augmentation. Patient has failed multiple antidepressant trials he has no clear manic symptoms by history difficulty with trust and has avoided psychotherapy which appears to been a significant contributing factor to him not adapting to multiple concerns in his life patient has intrusive thoughts regarding multiple losses last 1 was when his license was suspended and there were charges against him in September 20 during what appears to be an amnestic episode brain spect essentially wnl Patient educated on: diagnosis, medication risk/benefits, therapeutic strategies and medical condition Informed Consent: further education needed Reason for continued inpatient stay Substantial Risk for: harm to self and rapid decompensation Time Spent With Patient Time: Total time managing care of this patient today ____ minutes.
[2024-03-14] MEDS: LORazepam 1 MG TABLET PO ×2 (00:03→12:32)
[2024-03-14] MEDS: OLANZapine 5 MG TABLET PO (00:03)
[2024-03-14 08:00] VITALS: BP 107/76; PULSE 79; RESP 16; TEMP 36.4; O2SAT 98
[2024-03-14] MEDS: Multivitamin TABLET 1 TAB PO (08:38)
[2024-03-14] MEDS: Cariprazine HCl 1.5 MG CAPSULE PO (08:39)
[2024-03-14] MEDS: Nicotine 21 MG PATCH.TD24 TRANSDERMA (08:39)
[2024-03-14] MEDS: Acetaminophen 325 MG TABLET 650 MG PO ×2 (08:44→19:46)
[2024-03-14] MEDS: Fluticasone Propionate Nasal 16 GM SPRAY 1 SPRAY NOSTRIL-B ×2 (08:44→20:45)
--- NOTE | 2024-03-14 10:31 | HO.PSYCHPN ---
Subjective Subjective Date of Service: 03/14/24 Reason For Visit: SI Subjective Notes: Conditional Voluntary Interim History: Patient was seen and discussed in rounds today. Records and plans were reviewed. He is very bothered by the number of adam in his left wrist and is requesting to have them removed or ?all removed by myself?. We are going to request hospitalist to see and address this. Eating and sleeping adequately. He continues to be depressed and is looking forward to being discharged. He has reported wishes. He is not attending any groups and not that engaged. No active SI. No changes were made today Review of Systems Review of Systems Yes all other systems are reviewed and are negative Mental Status Exam Mental Status Exam Narrative: In today's visit he is alert, pleasant and interactive. Speech is normal. Good eye contact. Affect is appropriate and varied. No signs of psychosis. No active SI. Cognitively intact. Diagnostics Vital Signs (24Hr): Vital Signs - 24 hr 03/13/24 20:00 03/14/24 08:00 Temperature 98.1 F 97.6 F Pulse Rate 111 H 79 Respiratory Rate 18 16 Blood Pressure 134/84 107/76 Pulse Oximetry 97 98 Oxygen Delivery Method Room Air Room Air BMI result Body Mass Index 38.0 Labs 03/11/24 04:01 03/11/24 04:01 Imaging Radiology Impressions: ITS Impressions SPECT Scan-Brain NM 03/12/24 17:15 IMPRESSION: Nonspecific mild variable hypoperfusion at both frontal and temporal lobes, likely within variable physiologic limitations. No evidence of any discrete focal hypoperfusion on either side. Please note that the role of brain perfusion SPECT in this particular clinical scenario has not been studied in depth or is unknown ( https://jnm.snmjournals.org/content/42/2/259#[email or web address]). If clinically appropriate, follow-up F-18 FDG PET/CT scan, LIZZY scan and/or functional MRI as appropriate may be considered for further clarification. Medications Medications Current Medications Acetaminophen (Acetaminophen 325 Mg Tablet) 650 mg PO Q6H PRN PRN Reason: Headache/Pain Mild Scale (1-3) Last Admin: 03/14/24 08:44 Dose: 650 mg Al Hydroxide/Mg Hydroxide (Magnesium Hydrox/Alum Hydrox 30 Ml Oral.Susp) 30 ml PO Q6H PRN PRN Reason: Heartburn/Nausea Cariprazine (Cariprazine Hcl 1.5 Mg Capsule) 1.5 mg PO DAILY [facility] Last Admin: 03/14/24 08:39 Dose: 1.5 mg Divalproex Sodium (Divalproex Sodium Er 500 Mg Tab.Er.24h) 500 mg PO BEDTIME [facility] Last Admin: 03/13/24 20:30 Dose: 500 mg Fluticasone Propionate (Fluticasone Propionate Nasal 16 Gm [place]) 1 spray NOSTRIL-B BID [facility] Last Admin: 03/14/24 08:44 Dose: 1 spray Hydroxyzine HCl (Hydroxyzine Hcl 25 Mg Tablet) 25 mg PO Q6H PRN PRN Reason: Anxiety Last Admin: 03/13/24 20:42 Dose: 25 mg Lorazepam (Lorazepam 1 Mg Tablet) 1 mg PO BID PRN PRN Reason: Anxiety Last Admin: 03/14/24 00:03 Dose: 1 mg Lorazepam (Lorazepam 2 Mg/Ml Vial) 2 mg IVPUSH ONCE PRN PRN Reason: during procedure anxiety Last Admin: 03/12/24 15:29 Dose: 2 mg Magnesium Hydroxide (Milk Of Magnesia 30 Ml Oral.Susp) 30 ml PO DAILY PRN PRN Reason: Constipation Mirtazapine (Mirtazapine 7.5 Mg Tablet) 7.5 mg PO BEDTIME [facility] Last Admin: 03/13/24 20:31 Dose: 7.5 mg Multivitamins/Vitamin C (Multivitamin Tablet) 1 tab PO DAILY [facility] Last Admin: 03/14/24 08:38 Dose: 1 tab Nicotine (Nicotine 21 Mg Patch.Td24) 21 mg TRANSDERMA DAILY [facility] Last Admin: 03/14/24 08:39 Dose: 21 mg Nicotine Polacrilex (Nicotine Polacrilex 2 Mg Gum) 4 mg BUCCAL Q2H PRN PRN Reason: Nicotine Cravings Olanzapine (Olanzapine 5 Mg Tablet) 5 mg PO BID PRN PRN Reason: severe anxiety Last Admin: 03/14/24 00:03 Dose: 5 mg Zolpidem Tartrate (Zolpidem Tartrate 5 Mg Tablet) 10 mg PO BEDTIME [facility] Last Admin: 03/13/24 20:31 Dose: 10 mg Allergies Allergies Allergy/AdvReac Type Severity Reaction Status Date / Time Tetanus Vaccines and Toxoid Allergy Rash Verified 03/11/24 03:43 Assessment & Plan Assessment & Plan (1) Suicidal behavior with attempted self-injury: Status: Acute Code(s): T14.91XA - Suicide attempt, initial encounter (2) Depression, major, severe recurrence: Status: Acute Code(s): F33.2 - Major depressive disorder, recurrent severe without psychotic features (3) Abdominal pain: Status: Acute Code(s): R10.9 - Unspecified abdominal pain (4) Amnesia memory loss: Status: Acute Code(s): R41.3 - Other amnesia Plan 33-year-old male history of recurrent depression PTSD admitted to [facility] after a suicide attempt and significantly lacerating his forearm with hx of laparotomy and repair of umbilical hernia now c/o abdominal pain at his umbilicus. Cannot clearly palpate a recurrent hernia at the umbilicus and he has only mild tenderness. He will need a CT scan abd/pelvis to evaluate. This can be done as an outpatient and can be seen in the general surgery office after discharge. Left forearm lacerations are clean and well approximated. [place] can be removed 7-10 days after placement. 03/13/2024 Above surgical consult read and appreciated patient to hold off on removing adam. The patient's mood is flat he was agreeable to Depakote discussed use of mirtazapine at bedtime Vraylar for augmentation. Patient has failed multiple antidepressant trials he has no clear manic symptoms by history difficulty with trust and has avoided psychotherapy which appears to been a significant contributing factor to him not adapting to multiple concerns in his life patient has intrusive thoughts regarding multiple losses last 1 was when his license was suspended and there were charges against him in September 20 during what appears to be an amnestic episode brain spect essentially wnl 03/14: Continue current regimen and plans Reason for continued inpatient stay Substantial Risk for: harm to self Time Spent With Patient Time: Total time managing care of this patient today ____ minutes.
--- NOTE | 2024-03-14 11:40 | PC.NURSE ---
Pt has 7 adam and glue to left forearm placed in ED on 03/11 after self inflicted laceration prior to admission. This morning pt demanded to have adam removed today, with c/o itching and burning under the adam. Pt reported he needed to have the adam removed today, and threatened to remove adam himself if not done by team. Pt was last seen by hospitalist team yesterday 03/13/24 for abdominal discomfort. In the evaluation note pt's request for removal of adam was addressed with a recommendation for removal after 7-10 days. Pt informed of hospitalist recommendation, however, pt stated that he could not wait that long and insisted he would remove adam himself if it was not done for him today. Pt also voiced frustration that hospitalist did not examine his arm during 03/13/[address] Muñoz made aware of pt's complaints and request. New order for stat hospitalist consult obtained. Donita LAUREN and Dr. Olivas both made aware of pt's complaints, as well as pt's request for removal of adam. Per Dr. Olivas, Dr. Esparza (surgery) was notified of situation as well.
--- NOTE | 2024-03-14 12:28 | PM.EVENT ---
Event Note Date of Service: 03/14/24 Event Note: Patient is a 33-year-old male who was admitted to [facility] for increasing depression with SI an attempt at cutting his left forearm with razor blades.. Patient was initially seen and evaluated here in our ED on 03/11/2024 and multiple forearm lacerations were glued and stapled. Patient has been complaining of burning and itching sensation had stable sites since yesterday. Was seen and evaluated by General surgery yesterday who stated adam needed to remain intact for at least 5 days, though preferably 7-10. Patient continues to complain of burning and pruritus at site of adam which is keeping him up at night. States his Ambien did not help at all last night. Patient states he thinks he is allergic to the adam, though physical examination reveals no evidence of contact dermatitis. See picture below. Will give patient Benadryl 50 mg p.o. Patient can also be treated symptomatically with cold compresses. Attempted to compromise with patient to keep adam in for at least two more days. Analgesics per Psychiatry. Time Spent With Patient Time: Total time managing care of this patient today ____ minutes.
[2024-03-14] MEDS: diphenhydrAMINE HCL 25 MG CAPSULE 50 MG PO ×2 (12:32→20:44)
[2024-03-14 20:00] VITALS: BP 127/85; PULSE 110; RESP 18; TEMP 36.1; O2SAT 100
[2024-03-14] MEDS: Zolpidem Tartrate 5 MG TABLET 10 MG PO (20:39)
[2024-03-14] MEDS: Divalproex Sodium ER 500 MG TAB.ER.24H PO (20:40)
[2024-03-14] MEDS: Mirtazapine 7.5 MG TABLET PO (20:40)
[2024-03-14] MEDS: QUEtiapine Fumarate 100 MG TABLET PO (20:45)
[2024-03-15] MEDS: Acetaminophen 325 MG TABLET 650 MG PO ×3 (07:53→21:09)
--- NOTE | 2024-03-15 07:55 | PC.NURSE ---
pt requested tylenol for 02/25 headache pain, re-educated on pain scale
[2024-03-15] MEDS: Multivitamin TABLET 1 TAB PO (08:15)
[2024-03-15] MEDS: Cariprazine HCl 1.5 MG CAPSULE PO (08:15)
[2024-03-15] MEDS: Fluticasone Propionate Nasal 16 GM SPRAY 1 SPRAY NOSTRIL-B ×2 (08:15→21:06)
[2024-03-15] MEDS: LORazepam 1 MG TABLET PO ×2 (08:15→15:47)
[2024-03-15] MEDS: Nicotine 21 MG PATCH.TD24 TRANSDERMA (08:16)
[2024-03-15 08:29] VITALS: BP 110/79; PULSE 96; RESP 14; TEMP 36.4; O2SAT 98
[2024-03-15] MEDS: diphenhydrAMINE HCL 25 MG CAPSULE 50 MG PO ×2 (09:55→21:29)
--- NOTE | 2024-03-15 10:33 | P.PNPSI_ITS ---
Subjective Subjective Date of Service: 03/15/24 Reason For Visit: SI Subjective Notes: Conditional Voluntary Interim History: Patient was seen and discussed in rounds today. Records and plans were reviewed. He did finally get some relief with use of Benadryl for his discomfort with the adam in his left wrist. He did sleep somewhat better but had interruptions with Seroquel which I increased to 150 mg for tonight. Several questions about his medications discussed. No SI. No other changes were made. Review of Systems Review of Systems Yes all other systems are reviewed and are negative Mental Status Exam Mental Status Exam Narrative: In today's visit he is alert, pleasant and interactive. Speech is normal. Good eye contact. Affect is appropriate and varied. No signs of psychosis. No active SI. Cognitively intact. Diagnostics Vital Signs (24Hr): Vital Signs - 24 hr 03/14/24 20:00 03/15/24 08:29 Temperature 97 F 97.5 F Pulse Rate 110 H 96 Respiratory Rate 18 14 Blood Pressure 127/85 110/79 Pulse Oximetry 100 98 Oxygen Delivery Method Room Air Room Air BMI result Body Mass Index 38.0 Labs 03/11/24 04:01 03/11/24 04:01 Imaging Radiology Impressions: ITS Impressions SPECT Scan-Brain NM 03/12/24 17:15 IMPRESSION: Nonspecific mild variable hypoperfusion at both frontal and temporal lobes, likely within variable physiologic limitations. No evidence of any discrete focal hypoperfusion on either side. Please note that the role of brain perfusion SPECT in this particular clinical scenario has not been studied in depth or is unknown ( https://jnm.snmjournals.org/content/42/2/259#[email or web address]). If clinically appropriate, follow-up F-18 FDG PET/CT scan, LIZZY scan and/or functional MRI as appropriate may be considered for further clarification. Medications Medications Current Medications Acetaminophen (Acetaminophen 325 Mg Tablet) 650 mg PO Q6H PRN PRN Reason: Headache/Pain Mild Scale (1-3) Last Admin: 03/15/24 07:53 Dose: 650 mg Al Hydroxide/Mg Hydroxide (Magnesium Hydrox/Alum Hydrox 30 Ml Oral.Susp) 30 ml PO Q6H PRN PRN Reason: Heartburn/Nausea Cariprazine (Cariprazine Hcl 1.5 Mg Capsule) 1.5 mg PO DAILY [facility] Last Admin: 03/15/24 08:15 Dose: 1.5 mg Diphenhydramine HCl (Diphenhydramine Hcl 25 Mg Capsule) 50 mg PO Q6H PRN PRN Reason: Itching Last Admin: 03/15/24 09:55 Dose: 50 mg Divalproex Sodium (Divalproex Sodium Er 500 Mg Tab.Er.24h) 500 mg PO BEDTIME [facility] Last Admin: 03/14/24 20:40 Dose: 500 mg Fluticasone Propionate (Fluticasone Propionate Nasal 16 Gm [place]) 1 spray NOSTRIL-B BID [facility] Last Admin: 03/15/24 08:15 Dose: 1 spray Lorazepam (Lorazepam 1 Mg Tablet) 1 mg PO BID PRN PRN Reason: Anxiety Last Admin: 03/15/24 08:15 Dose: 1 mg Lorazepam (Lorazepam 2 Mg/Ml Vial) 2 mg IVPUSH ONCE PRN PRN Reason: during procedure anxiety Last Admin: 03/12/24 15:29 Dose: 2 mg Magnesium Hydroxide (Milk Of Magnesia 30 Ml Oral.Susp) 30 ml PO DAILY PRN PRN Reason: Constipation Mirtazapine (Mirtazapine 7.5 Mg Tablet) 7.5 mg PO BEDTIME [facility] Last Admin: 03/14/24 20:40 Dose: 7.5 mg Multivitamins/Vitamin C (Multivitamin Tablet) 1 tab PO DAILY [facility] Last Admin: 03/15/24 08:15 Dose: 1 tab Nicotine (Nicotine 21 Mg Patch.Td24) 21 mg TRANSDERMA DAILY [facility] Last Admin: 03/15/24 08:16 Dose: 21 mg Nicotine Polacrilex (Nicotine Polacrilex 2 Mg Gum) 4 mg BUCCAL Q2H PRN PRN Reason: Nicotine Cravings Olanzapine (Olanzapine 5 Mg Tablet) 5 mg PO BID PRN PRN Reason: severe anxiety Last Admin: 03/14/24 00:03 Dose: 5 mg Quetiapine Fumarate (Quetiapine Fumarate 100 Mg Tablet) 100 mg PO BEDTIME PRN PRN Reason: slee Last Admin: 03/14/24 20:45 Dose: 100 mg Allergies Allergies Allergy/AdvReac Type Severity Reaction Status Date / Time Tetanus Vaccines and Toxoid Allergy Rash Verified 03/11/24 03:43 Assessment & Plan Assessment & Plan (1) Suicidal behavior with attempted self-injury: Status: Acute Code(s): T14.91XA - Suicide attempt, initial encounter (2) Depression, major, severe recurrence: Status: Acute Code(s): F33.2 - Major depressive disorder, recurrent severe without psychotic features (3) Abdominal pain: Status: Acute Code(s): R10.9 - Unspecified abdominal pain (4) Amnesia memory loss: Status: Acute Code(s): R41.3 - Other amnesia Plan 33-year-old male history of recurrent depression PTSD admitted to [facility] after a suicide attempt and significantly lacerating his forearm with hx of laparotomy and repair of umbilical hernia now c/o abdominal pain at his umbilicus. Cannot clearly palpate a recurrent hernia at the umbilicus and he has only mild tenderness. He will need a CT scan abd/pelvis to evaluate. This can be done as an outpatient and can be seen in the general surgery office after discharge. Left forearm lacerations are clean and well approximated. [place] can be removed 7-10 days after placement. 03/13/2024 Above surgical consult read and appreciated patient to hold off on removing adam. The patient's mood is flat he was agreeable to Depakote discussed use of mirtazapine at bedtime Vraylar for augmentation. Patient has failed multiple antidepressant trials he has no clear manic symptoms by history difficulty with trust and has avoided psychotherapy which appears to been a significant contributing factor to him not adapting to multiple concerns in his life patient has intrusive thoughts regarding multiple losses last 1 was when his license was suspended and there were charges against him in September 20 during what appears to be an amnestic episode brain spect essentially wnl 03/14: Continue current regimen and plans 03/15: Continue current regimen and plans. Seroquel increased to 150 mg Patient educated on: medication risk/benefits and medical condition Reason for continued inpatient stay Substantial Risk for: harm to self Time Spent With Patient Time: Total time managing care of this patient today ____ minutes.
[2024-03-15] MEDS: OLANZapine 5 MG TABLET PO ×2 (14:08→23:41)
[2024-03-15 20:00] VITALS: BP 128/94; PULSE 114; RESP 16; TEMP 36.6; O2SAT 96
[2024-03-15] MEDS: Zolpidem Tartrate 5 MG TABLET 10 MG PO (21:06)
[2024-03-15] MEDS: Mirtazapine 7.5 MG TABLET PO (21:06)
[2024-03-15] MEDS: Divalproex Sodium ER 500 MG TAB.ER.24H PO (21:06)
[2024-03-15] MEDS: QUEtiapine Fumarate 50 MG TABLET 150 MG PO (21:09)
[2024-03-15] MEDS: Magnesium Hydrox/Alum Hydrox 30 ML ORAL.SUSP PO (22:43)
[2024-03-16] MEDS: LORazepam 1 MG TABLET PO ×3 (00:13→22:39)
[2024-03-16 07:41] VITALS: BP 94/53; PULSE 102; RESP 16; TEMP 36.4; O2SAT 94
[2024-03-16] MEDS: Fluticasone Propionate Nasal 16 GM SPRAY 1 SPRAY NOSTRIL-B ×2 (08:26→20:13)
[2024-03-16] MEDS: Multivitamin TABLET 1 TAB PO (08:27)
[2024-03-16] MEDS: Cariprazine HCl 1.5 MG CAPSULE PO (08:27)
[2024-03-16] MEDS: Nicotine 21 MG PATCH.TD24 TRANSDERMA (08:28)
[2024-03-16] MEDS: Acetaminophen 325 MG TABLET 650 MG PO ×2 (08:39→16:48)
[2024-03-16] MEDS: diphenhydrAMINE HCL 25 MG CAPSULE 50 MG PO ×2 (08:39→19:46)
--- NOTE | 2024-03-16 12:30 | PC.NURSE ---
3-day notice signed 03/16
[2024-03-16 19:43] VITALS: BP 123/96; PULSE 117; RESP 16; TEMP 36.4; O2SAT 97
[2024-03-16] MEDS: Mirtazapine 7.5 MG TABLET PO (20:13)
[2024-03-16] MEDS: Divalproex Sodium ER 500 MG TAB.ER.24H PO (20:13)
[2024-03-16] MEDS: QUEtiapine Fumarate 50 MG TABLET 150 MG PO (20:13)
--- NOTE | 2024-03-16 21:20 | P.PNPSI_ITS ---
Subjective Subjective Date of Service: 03/16/24 Reason For Visit: SI Subjective Notes: Conditional Voluntary and 3 Day Interim History: Patient seen relates it appears to being somewhat chronically demoralized after multiple difficulties of past number of years including divorce lost his license and perhaps an arrest and lost his license precipitated by perhaps adverse reaction to zolpidem now discontinued seems more stable on a combination Vraylar Depakote low-dose mirtazapine can not really explain what precipitated his significant laceration prior to admission but has been steady future oriented the past number of days does not appear overly depressed denies any active thoughts of self-harm Medication Compliance: Yes Diagnostics Vital Signs (24Hr): Vital Signs - 24 hr 03/16/24 07:41 03/16/24 19:43 Temperature 97.5 F 97.5 F Pulse Rate 102 H 117 H Respiratory Rate 16 16 Blood Pressure 94/53 L 123/96 H Pulse Oximetry 94 97 Oxygen Delivery Method Room Air Room Air BMI result Body Mass Index 38.0 Labs 03/11/24 04:01 03/11/24 04:01 Imaging Radiology Impressions: ITS Impressions SPECT Scan-Brain NM 03/12/24 17:15 IMPRESSION: Nonspecific mild variable hypoperfusion at both frontal and temporal lobes, likely within variable physiologic limitations. No evidence of any discrete focal hypoperfusion on either side. Please note that the role of brain perfusion SPECT in this particular clinical scenario has not been studied in depth or is unknown ( [email or web address]://jnm.snmjournals.org/content/42/2/259#[email or web address]). If clinically appropriate, follow-up F-18 FDG PET/CT scan, LIZZY scan and/or functional MRI as appropriate may be considered for further clarification. Medications Medications Current Medications Acetaminophen (Acetaminophen 325 Mg Tablet) 650 mg PO Q6H PRN PRN Reason: Headache/Pain Mild Scale (1-3) Last Admin: 03/16/24 16:48 Dose: 650 mg Al Hydroxide/Mg Hydroxide (Magnesium Hydrox/Alum Hydrox 30 Ml Oral.Susp) 30 ml PO Q6H PRN PRN Reason: Heartburn/Nausea Last Admin: 03/15/24 22:43 Dose: 30 ml Cariprazine (Cariprazine Hcl 3 Mg Capsule) 3 mg PO DAILY FANNY Diphenhydramine HCl (Diphenhydramine Hcl 25 Mg Capsule) 50 mg PO Q6H PRN PRN Reason: Itching Last Admin: 03/16/24 19:46 Dose: 50 mg Divalproex Sodium (Divalproex Sodium Er 500 Mg Tab.Er.24h) 500 mg PO BEDTIME FANNY Last Admin: 03/16/24 20:13 Dose: 500 mg Fluticasone Propionate (Fluticasone Propionate Nasal 16 Gm Daphne) 1 spray NOSTRIL-B BID FANNY Last Admin: 03/16/24 20:13 Dose: 1 spray Lorazepam (Lorazepam 1 Mg Tablet) 1 mg PO BID PRN PRN Reason: Anxiety Last Admin: 03/16/24 10:47 Dose: 1 mg Lorazepam (Lorazepam 2 Mg/Ml Vial) 2 mg IVPUSH ONCE PRN PRN Reason: during procedure anxiety Last Admin: 03/12/24 15:29 Dose: 2 mg Magnesium Hydroxide (Milk Of Magnesia 30 Ml Oral.Susp) 30 ml PO DAILY PRN PRN Reason: Constipation Mirtazapine (Mirtazapine 7.5 Mg Tablet) 7.5 mg PO BEDTIME [facility] Last Admin: 03/16/24 20:13 Dose: 7.5 mg Multivitamins/Vitamin C (Multivitamin Tablet) 1 tab PO DAILY [facility] Last Admin: 03/16/24 08:27 Dose: 1 tab Nicotine (Nicotine 21 Mg Patch.Td24) 21 mg TRANSDERMA DAILY [facility] Last Admin: 03/16/24 08:28 Dose: 21 mg Nicotine Polacrilex (Nicotine Polacrilex 2 Mg Gum) 4 mg BUCCAL Q2H PRN PRN Reason: Nicotine Cravings Olanzapine (Olanzapine 5 Mg Tablet) 5 mg PO BID PRN PRN Reason: severe anxiety Last Admin: 03/15/24 23:41 Dose: 5 mg Quetiapine Fumarate (Quetiapine Fumarate 50 Mg Tablet) 150 mg PO BEDTIME PRN PRN Reason: slee Last Admin: 03/16/24 20:13 Dose: 150 mg Allergies Allergies Allergy/AdvReac Type Severity Reaction Status Date / Time Tetanus Vaccines and Toxoid Allergy Rash Verified 03/11/24 03:43 Assessment & Plan Assessment & Plan (1) Suicidal behavior with attempted self-injury: Status: Acute Code(s): T14.91XA - Suicide attempt, initial encounter (2) Depression, major, severe recurrence: Status: Acute Code(s): F33.2 - Major depressive disorder, recurrent severe without psychotic features (3) Abdominal pain: Status: Acute Code(s): R10.9 - Unspecified abdominal pain (4) Amnesia memory loss: Status: Acute Code(s): R41.3 - Other amnesia Plan 33-year-old male history of recurrent depression PTSD admitted to [facility] after a suicide attempt and significantly lacerating his forearm with hx of laparotomy and repair of umbilical hernia now c/o abdominal pain at his umbilicus. Cannot clearly palpate a recurrent hernia at the umbilicus and he has only mild tenderness. He will need a CT scan abd/pelvis to evaluate. This can be done as an outpatient and can be seen in the general surgery office after discharge. Left forearm lacerations are clean and well approximated. Adam can be removed 7-10 days after placement. 03/13/2024 Above surgical consult read and appreciated patient to hold off on removing adam. The patient's mood is flat he was agreeable to Depakote discussed use of mirtazapine at bedtime Vraylar for augmentation. Patient has failed multiple antidepressant trials he has no clear manic symptoms by history difficulty with trust and has avoided psychotherapy which appears to been a significant contributing factor to him not adapting to multiple concerns in his life patient has intrusive thoughts regarding multiple losses last 1 was when his license was suspended and there were charges against him in September 20 during what appears to be an amnestic episode brain spect essentially wnl 03/14: Continue current regimen and plans 03/15: Continue current regimen and plans. Seroquel increased to 150 mg 03/16/2024 Continue current treatment plan patient on 3 day notice zolpidem discontinued wishes discharge for tomorrow irritable regarding adam Reason for continued inpatient stay Substantial Risk for: harm to self and rapid decompensation Time Spent With Patient Time: Total time managing care of this patient today ____ minutes.
[2024-03-16] MEDS: OLANZapine 5 MG TABLET PO (22:39)
[2024-03-17] MEDS: LORazepam 1 MG TABLET PO ×2 (00:11→08:43)
[2024-03-17] MEDS: Acetaminophen 325 MG TABLET 650 MG PO ×2 (05:36→12:16)
[2024-03-17 07:30] VITALS: BP 121/84; PULSE 117; RESP 18; TEMP 36.6; O2SAT 96
[2024-03-17] MEDS: Nicotine 21 MG PATCH.TD24 TRANSDERMA (08:42)
[2024-03-17] MEDS: Fluticasone Propionate Nasal 16 GM SPRAY 1 SPRAY NOSTRIL-B (08:42)
[2024-03-17] MEDS: diphenhydrAMINE HCL 25 MG CAPSULE 50 MG PO (08:42)
[2024-03-17] MEDS: Cariprazine HCl 3 MG CAPSULE PO (08:42)
[2024-03-17] MEDS: Multivitamin TABLET 1 TAB PO (08:42)
[2024-03-17] MEDS: Magnesium Hydrox/Alum Hydrox 30 ML ORAL.SUSP PO (09:02)
[2024-03-17 10:47] LABS: Valproate < 12.5 mcg/mL (50.0-100.0)
[2024-03-17 10:48] LABS: Alanine Aminotransferase 71 U/L (0-40); Albumin Level 4.6 g/dL (3.5-5.0); Alkaline Phosphatase 84 U/L (39-117); Anion Gap 14 (12-20); Aspartate Amino Transferase 27 U/L (5-37); Bilirubin Total 0.3 mg/dL (0.0-1.0); Blood Urea Nitrogen 14 mg/dL (9-16); Calcium 9.9 mg/dL (8.4-10.2); Carbon Dioxide 28 mmol/L (22-29); Chloride 103 mmol/L (96-108); Creatinine Clr Calc Pharmacy 110.5; Estimated Glomerular Filt Rate > 60; Glucose Random 88 mg/dL (60-115); Potassium 4.3 mmol/L (3.3-5.1); Sodium 141 mmol/L (135-145); Total Protein 7.6 g/dL (6.5-8.0)
--- NOTE | 2024-03-17 11:35 | PC.NURSE ---
Addendum entered by Radha Norman RN 03/17/24 11:52: per Gage Del Rosario via [employer], Page Annie Antonio. Let her know if she can come over bassem. I spoke to her this am . Annie messaged via [employer], awaiting reponse. Original Note: pt reports the adam are super itchy. If they dont come out today, I'm taking them out myself . Gage Del Rosario notified via [employer] text. Awaiting response. Will continue to monitor.
--- NOTE | 2024-03-17 13:24 | P.PNGS_ITS ---
Subjective Subjective Date of Service: 03/17/24 Interval history: Asking for adam to be removed prior to discharge today. Physical Exam 2 Vital Signs: Vital Signs: Last Vital Signs Temp 97.8 F 03/17/24 07:30 Pulse 117 H 03/17/24 07:30 Resp 18 03/17/24 07:30 BP 121/84 03/17/24 07:30 Pulse Ox 96 03/17/24 07:30 O2 Del Method Room Air 03/17/24 07:30 BMI result Body Mass Index 38.0 Const: General: comfortable, no acute distress and alert Extrem: Other: left anterior forearm with multiple well healing lacerations well approximated, very mild erythema surrounding adam Objective Data Active Medications Acetaminophen (Acetaminophen 325 Mg Tablet) 650 mg PO Q6H PRN PRN Reason: Headache/Pain Mild Scale (1-3) Last Admin: 03/17/24 12:16 Dose: 650 mg Documented By: ANTHONY Al Hydroxide/Mg Hydroxide (Magnesium Hydrox/Alum Hydrox 30 Ml Oral.Susp) 30 ml PO Q6H PRN PRN Reason: Heartburn/Nausea Last Admin: 03/17/24 09:02 Dose: 30 ml Documented By: YOVANY Cariprazine (Cariprazine Hcl 3 Mg Capsule) 3 mg PO DAILY [facility] Last Admin: 03/17/24 08:42 Dose: 3 mg Documented By: YOVANY Diphenhydramine HCl (Diphenhydramine Hcl 25 Mg Capsule) 50 mg PO Q6H PRN PRN Reason: Itching Last Admin: 03/17/24 08:42 Dose: 50 mg Documented By: YOVANY Divalproex Sodium (Divalproex Sodium Er 500 Mg Tab.Er.24h) 500 mg PO BEDTIME [facility] Last Admin: 03/16/24 20:13 Dose: 500 mg Documented By: TESS Fluticasone Propionate (Fluticasone Propionate Nasal 16 Gm Geff) 1 spray NOSTRIL-B BID [facility] Last Admin: 03/17/24 08:42 Dose: 1 spray Documented By: YOVANY Lorazepam (Lorazepam 1 Mg Tablet) 1 mg PO BID PRN PRN Reason: Anxiety Last Admin: 03/17/24 08:43 Dose: 1 mg Documented By: YOVANY Magnesium Hydroxide (Milk Of Magnesia 30 Ml Oral.Susp) 30 ml PO DAILY PRN PRN Reason: Constipation Mirtazapine (Mirtazapine 7.5 Mg Tablet) 7.5 mg PO BEDTIME [facility] Last Admin: 03/16/24 20:13 Dose: 7.5 mg Documented By: TESS Multivitamins/Vitamin C (Multivitamin Tablet) 1 tab PO DAILY [facility] Last Admin: 03/17/24 08:42 Dose: 1 tab Documented By: YOVANY Nicotine (Nicotine 21 Mg Patch.Td24) 21 mg TRANSDERMA DAILY [facility] Last Admin: 03/17/24 08:42 Dose: 21 mg Documented By: YOVANY Nicotine Polacrilex (Nicotine Polacrilex 2 Mg Gum) 4 mg BUCCAL Q2H PRN PRN Reason: Nicotine Cravings Olanzapine (Olanzapine 5 Mg Tablet) 5 mg PO BID PRN PRN Reason: severe anxiety Last Admin: 03/16/24 22:39 Dose: 5 mg Documented By: TESS Quetiapine Fumarate (Quetiapine Fumarate 50 Mg Tablet) 150 mg PO BEDTIME PRN PRN Reason: slee Last Admin: 03/16/24 20:13 Dose: 150 mg Documented By: TESS Labs 03/11/24 04:01 03/17/24 10:24 Labs: Laboratory Results - last 24 hr 03/17/24 10:24 Anion Gap 14 Estim Creat Clear Calc 110.5 Estimated GFR > 60 Random Glucose 88 Calcium 9.9 D Total Bilirubin 0.3 AST 27 ALT 71 H Alkaline Phosphatase 84 Ammonia Cancelled Total Protein 7.6 Albumin 4.6 Cancelled Chem Test SEE NOTE Valproic Acid < 12.5 L Procedures Date of Service Date of Service: 03/17/24 Progress Note: A&P Assessment and plan (1) Abdominal pain: Status: Acute (2) Laceration of forearm, left: Status: Acute Plan Lacerations well healed. All adam removed uneventfully. Wound care discussed. Can f/u in office with Dr. Esparza for outpatient CT scan to eval for recurrent hernia. Patient comfortable with plan. Time Spent With Patient Time: Total time managing care of this patient today ____ minutes. Quality Stroke Does the patient have a stroke diagnosis?: No VTE Prior VTE?: No VTE Risk Level:: Medical - low VTE Device Contraindication: Treatment Not Indicated VTE Drug Contraindication: Treatment Not Indicated
[2024-03-17] MEDS: Naloxone HCl Nasal TAKE HOME 4 MG SPRAY 8 MG NOSTRILALT (15:32)
--- NOTE | 2024-03-17 15:55 | P.DS_ITS ---
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 appointment please call [phone] with at least 24 hours notice. ) Discharge Medications: New divalproex 500 mg Tablet Extended Release 24 Hr 500 mg PO BEDTIME 30 Days Qty: 30 0RF mirtazapine 7.5 mg Tablet 7.5 mg PO BEDTIME 30 Days Qty: 30 0RF Vraylar 3 mg Capsule 3 mg PO DAILY 30 Days Qty: 30 0RF Continued nicotine (polacrilex) 2 mg Gum 4 mg buccal Q2H PRN (Reason: Nicotine Cravings) Qty: 60 0RF fluticasone propionate 50 mcg/actuation [place],Suspension 1 spray intranasal BID Qty: 1 0RF lorazepam 1 mg tablet 1 mg PO BID PRN (Reason: Anxiety) Qty: 14 0RF Changed Seroquel 50 mg capsule 50 mg PO DIRECTED 30 Days Qty: 60 1RF Rx Instructions: 1 - 2 bedtime Discontinued nicotine 21 mg/24 hr Patch 24 Hour 21 mg transdermal DAILY Qty: 30 0RF Azstarys 52.3 mg PO DAILY amitriptyline 75 mg PO BEDTIME doxazosin 4 mg PO DAILY zolpidem 10 mg PO BEDTIME PRN (Reason: Insomnia) Discharge Orders: Discharge Order (Routine); Ordered 03/17/24 Ordered By: Servando Del Rosario Diet: Advance to usual diet Activity on Discharge: no lifting Stand Alone Forms: Patient Portal Discharge page, Community Support Print Language: Bahraini Activity Restrictions/Additional Instructions: Follow up with General Surgery (Dr. Esparza) to evaluate for recurrent hernia. ([phone]) Care Plan Goals: To regain sense of optimism stabilize mood no self harm regain sense of community regain license as possible f/u with surgeon next wk Health Concerns: forearm laceration umbilical hernia recurrent depression ptsd Plan of Treatment: medication vraylar depakote new mirtazapine new strongly urge IT focused on rebilding life Assessment: calm bazzi affect no active si Discharge Date/Time: 03/17/24 16:00
== END 2024-03-17 16:00 | disposition home or self-care (01) | DRG 885 ==
LOC: HO.ED 07:38 → HO.PADLT16 15:31
PROVIDERS: Emergency Medicine Emergency Medical Services; Admitting Provider Psychiatry & Neurology Psychiatry; Emergency Provider Internal Medicine; PCP Family Medicine; Visit Provider Psychiatry & Neurology Psychiatry
DX: F33.2 Major depressive disorder, recurrent severe without psychotic features (principal); F90.9 Attention-deficit hyperactivity disorder, unspecified type; S51.812A Laceration without foreign body of left forearm, initial encounter; R41.3 Other amnesia; X78.1XXA Intentional self-harm by knife, initial encounter; F17.210 Nicotine dependence, cigarettes, uncomplicated; Z71.6 Tobacco abuse counseling; Z79.899 Other long term (current) drug therapy
CPT/HCPCS: 36415; 78803; 80053; 80061; 80164; 80307; 81003; 82140; 82607; 82746; 83036; 84439; 84443; 85025; 93005; 99285; A9557; J2060; S9485

== ENCOUNTER 2024-03-11 15:20 | Outpatient (BNV) | payer MEDICARE, SELFPAY | END 2024-03-12 08:00 | PROVIDERS: Admitting Provider Psychiatry & Neurology Psychiatry; Emergency Provider Internal Medicine; PCP Family Medicine; Visit Provider Internal Medicine | DX: T14.91XA Suicide attempt, initial encounter (principal); S51.812A Laceration without foreign body of left forearm, initial encounter; F33.2 Major depressive disorder, recurrent severe without psychotic features | CPT/HCPCS: 93010 ==

== ENCOUNTER → 2024-03-11 15:20 | Outpatient (BNV) | payer MEDICARE, SELFPAY | PROVIDERS: Admitting Provider Psychiatry & Neurology Psychiatry; Emergency Provider Internal Medicine; PCP Family Medicine; Visit Provider Physician Assistant Surgical | DX: R10.9 Unspecified abdominal pain (principal); S51.812A Laceration without foreign body of left forearm, initial encounter | CPT/HCPCS: 99222; 99232 ==

== ENCOUNTER → 2024-03-11 15:20 | Outpatient (BNV) | payer OTHER, SELFPAY | PROVIDERS: Admitting Provider Psychiatry & Neurology Psychiatry; Emergency Provider Internal Medicine; PCP Family Medicine; Visit Provider Psychiatry & Neurology Psychiatry | DX: F33.2 Major depressive disorder, recurrent severe without psychotic features (principal); T14.91XA Suicide attempt, initial encounter; R10.9 Unspecified abdominal pain; R41.3 Other amnesia | CPT/HCPCS: 99231; 99232 ==

== ENCOUNTER → 2024-03-11 15:20 | Outpatient (BNV) | payer OTHER, SELFPAY | PROVIDERS: Admitting Provider Psychiatry & Neurology Psychiatry; Emergency Provider Internal Medicine; PCP Family Medicine; Visit Provider Psychiatry & Neurology Psychiatry | DX: F33.2 Major depressive disorder, recurrent severe without psychotic features (principal); S51.812A Laceration without foreign body of left forearm, initial encounter; R10.9 Unspecified abdominal pain | CPT/HCPCS: 90792; 99232; 99238 ==

== ENCOUNTER 2024-03-31 13:08 | Outpatient (AMB) | payer OTHER, SELFPAY ==
--- NOTE | 2024-03-31 13:10 | MHC.OFFVIS ---
Vital Signs 03/31/24 13:16 Height 5 ft 7 in Weight 254 lb BMI 39.8 BP 127/86 Blood Pressure Location Rt brachial Position Sitting Pulse 102 H Intake Visit Reasons: ? recurrent hernia Intake Note: Patient referred by Dr. Alcaraz for ? recurrent hernia. Reports hx of umbilical hernia repaired in 2021 @ [facility]. Patient c/o: painful all the time. Feels bloated all the time. Commissary Manager Required: No Accompanied by: Self / Same As Patient Allergies Tetanus Vaccines and Toxoid Allergy (Verified 03/31/24 13:15) Rash Medication List - Last Reconciled 03/31/24 by Thomas Esparza MD cariprazine (Vraylar) 3 mg PO DAILY 30 days divalproex ER 500 mg PO BEDTIME 30 days fluticasone propionate 50 mcg/actuation 1 spray intranasal BID lorazepam 1 mg PO BID PRN mirtazapine 7.5 mg PO BEDTIME 30 days nicotine (polacrilex) 4 mg buccal Q2H PRN [Seroquel 50 mg PO DIRECTED 30 days] HPI Comments Details: Patient whom I know from a recent inpatient consult while he was on the inpatient psychiatric floor for possible recurrent ventral hernia. Patient had this hernia repaired at [facility] proximally 3 years ago. He states that there was an incisional infection at the time and thinks this may have compromise the integrity of the wound healing. At present, it is symptomatic in that it causes discomfort. He otherwise was able to tolerate a diet, has regular bowel habits. No other GI issues or complaints. His psychiatric issues are stable according to the patient. Chart was reviewed and patient evaluate [facility] Medical History Amnesia memory loss ADHD Cervical radiculopathy at C7 Injury of right hand Social History Household Members: Family Household Members Other:: mother and father Housing: Apartment Do you presently have visiting nurse or other home services: No Patient Tobacco Use Status: Current everyday Tobacco user Tobacco use type: Cigarette Cigarette Packs Per Day: 2 Cigarettes Per Day: 40.0 Years Smoked: 5 e-Cigarette/Vaping Use: Currently Using Second Hand Smoke Exposure: No Substance Use Type: Marijuana and Painkillers service: Yes ([employer] ) Sexual orientation: Straight/Heterosexual Physical Exam Vital Signs: Last Vital Signs Pulse 102 H 03/31/24 13:16 BP 127/86 03/31/24 13:16 BMI result Body Mass Index 39.8 GI Other: Patient was examined both supine and standing with Valsalva. Patient has a flank incision which is from a soft tissue injury in his youth. Group bilateral groin exam negative. Patient has what appears to be a recurrent umbilical/ventral hernia but somewhat difficult because of the moderate corpulent of the patient's abdomen. Assessment & Plan Assessment & Plan (1) Ventral hernia: Code(s): K43.9 - Ventral hernia without obstruction or gangrene Category: Surgical Plan: Current plan is to obtain a CT scan abdomen pelvis to evaluate the abdominal integrity to see if there were 1 or possible multiple hernias. Patient will see me after this study. All questions answered. Plan See above Orders: Orders CT abdomen pelvis wo/w IV con Today K43.9 - Ventral hernia without obstruction or gangrene Coding Level of Care Code Est Pt Level 4 (80337) Diagnoses Ventral hernia K43.9
[2024-03-31 13:16] VITALS: BP 127/86; PULSE 102; BMI 39.8
== END 2024-03-31 13:27 | disposition home or self-care (01) ==
PROVIDERS: PCP Family Medicine; Visit Provider Surgery
DX: K43.9 Ventral hernia without obstruction or gangrene (principal)
CPT/HCPCS: 99213

== ENCOUNTER → 2024-03-31 13:08 | Outpatient (BNVA) | payer OTHER, SELFPAY | PROVIDERS: PCP Family Medicine; Visit Provider Surgery ==

== ENCOUNTER 2024-05-14 14:10 | Outpatient (REF) | payer OTHER, SELFPAY ==
--- NOTE | ~2024-05-14 | CT_ITS ---
EXAMINATION: CT ABDOMEN AND PELVIS WITH CONTRAST CLINICAL INFORMATION: Status post umbilical hernia repair at outside facility. Patient presents for possible recurrence or new hernia. COMPARISON: None available. TECHNIQUE: Multidetector volumetric images were obtained from the superior aspect of the liver through the pubic symphysis following administration 85 mL of Omnipaque 350 intravenous contrast. Sagittal and coronal reformatted images were obtained on the technologist's workstation. Oral contrast: No This CT examination was performed using dose optimization techniques as appropriate, variously including the following: *Automated exposure control *Adjustment of mA and/or kV according to patient size (this includes techniques or standardized protocols for targeted exams where dose is matched to indication/reason for exam; i.e. extremities or head) *Use of iterative reconstruction technique DLP: 722 mGy-cm FINDINGS: LUNG BASES: The visualized lung bases are unremarkable. LIVER, GALLBLADDER, AND BILIARY TREE: The liver is normal in size, shape, and attenuation. No focal hepatic lesion or biliary ductal dilatation is present. The gallbladder is unremarkable with no evidence of radiopaque gallstones, gallbladder wall thickening, or obvious pericholecystic inflammatory changes. PANCREAS: Unremarkable. SPLEEN: Unremarkable. ADRENAL GLANDS: Unremarkable. KIDNEYS AND URETERS: The kidneys are normal in size, shape, and attenuation. No hydronephrosis, hydroureter, or calculi seen. No perinephric stranding. BLADDER: Unremarkable. GASTROINTESTINAL TRACT: The small and large bowel are unremarkable. The appendix is unremarkable. ABDOMINAL WALL: Postsurgical changes after umbilical hernia repair. No evidence of recurrence. LYMPH NODES: Normal. VASCULAR: Circumaortic left renal vein. PELVIC VISCERA: Unremarkable. OSSEOUS STRUCTURES: Unremarkable. CT/CT abdomen pelvis w IV con IMPRESSION: Postsurgical changes after umbilical hernia repair. No evidence of recurrence. Fleischner guidelines were followed. Electronically signed by: Nikunj Camacho MD 05/22/2024 11:41 AM EDT
[2024-05-14] MEDS: Barium Sulfate Oral (Mocha) 450 ML ORAL.SUSP 900 ML PO (17:00)
[2024-05-14] MEDS: iohexoL 350 MG/ML 100 ML INFUS..BTL 85 ML IV (17:01)
== END 2024-05-14 14:11 | disposition home or self-care (01) ==
LOC: HO.CT 14:10
PROVIDERS: PCP Family Medicine; Visit Provider Surgery
DX: K43.9 Ventral hernia without obstruction or gangrene (principal); R10.9 Unspecified abdominal pain
CPT/HCPCS: 74177; Q9967

== ENCOUNTER 2024-05-25 09:13 | Outpatient (AMB) | payer OTHER, SELFPAY ==
--- NOTE | 2024-05-25 09:16 | A.OFFVIS_ITS ---
Vital Signs 05/25/24 09:21 Height 5 ft 7 in Weight 268 lb BMI 42.0 BP 124/86 Blood Pressure Location Rt brachial Position Sitting Pulse 97 Intake Visit Reasons: Hernia Intake Note: Patient scheduled appointment to discuss recurrent ventral/ umbilical hernia. Patient c/o: pain. Denies nausea, diarrhea. Abd/ pelvis CT: 05-14-2024. Hogshead Filler Required: No Allergies Tetanus Vaccines and Toxoid Allergy (Verified 05/25/24 09:20) Rash Medication List - Last Reconciled 05/25/24 by Thomas Esparza MD cariprazine (Vraylar) 3 mg PO DAILY 30 days divalproex ER 500 mg PO BEDTIME 30 days fluticasone propionate 50 mcg/actuation 1 spray intranasal BID lorazepam 1 mg PO BID PRN mirtazapine 7.5 mg PO BEDTIME 30 days nicotine (polacrilex) 4 mg buccal Q2H PRN [Seroquel 50 mg PO DIRECTED 30 days] HPI Comments Details: Patient presents 1. For question of recurrence of umbilical hernia which was repaired 2 and half years ago at [facility] 2. A right hip skin lesion which is bleeding and scabbing. 1. Hernia repair was 2 and half years ago at the outside facility. Patient has had 6 months of pain and discomfort of the area. He is otherwise tolerating a diet. Having regular bowel habits. No other GI issues or complaints. He had a CT scan of abdomen which demonstrated no evidence of recurrence. Patient has had a longstanding history of right hip skin lesion. It has increased in size, become more symptomatic, occasionally bleeds and scabs. He would like to have this addressed as well. [facility] Medical History Amnesia memory loss ADHD Cervical radiculopathy at C7 Injury of right hand Surgical History (Updated 05/25/24 @ 09:47 by Thomas Esparza MD) Abnormal skin growth Social History Household Members: Family Household Members Other:: mother and father Housing: Apartment Do you presently have visiting nurse or other home services: No Patient Tobacco Use Status: Current everyday Tobacco user Tobacco use type: Cigarette Cigarette Packs Per Day: 2 Cigarettes Per Day: 40.0 Years Smoked: 5 e-Cigarette/Vaping Use: Currently Using Second Hand Smoke Exposure: No Substance Use Type: Marijuana and Painkillers service: Yes ([employer] [id number]) Sexual orientation: Straight/Heterosexual Physical Exam Vital Signs: Last Vital Signs Pulse 97 05/25/24 09:21 BP 124/86 05/25/24 09:21 BMI result Body Mass Index 42.0 GI Other: Patient was examined both supine and standing with Valsalva. Very corpulent abdomen. An umbilical hernia scar well healed. No evidence of any recurrence although abdomen is quite corpulent. Bilateral groin exam negative. Genitalia within normal limits. Skin Other: Roughly 3 x 2 cm exophytic growth involving the right hip area. Office Procedures Excision Details: Risks, benefits, alternatives of tangential excision of right hip skin lesion were reviewed with the patient included but not limited to bleeding, infection, recurrence, numbness, pain, scarring the patient wished to proceed. All questions answered. Consent site. After appropriate positioning, patient underwent 1% lidocaine and Betadine prep and uneventfully tangential excision of a roughly 3 x 2 cm exophytic growth involving of the right hip area. Specimen sent to pathology. Wound base was cauterized with silver nitrate followed by bacitracin and sterile dressing. Patient tolerated procedure well. 39899-kpbfd/arms/legs 2.1-3cm Procedure code (CPT) selection complete Office Meds lidocaine 1 %-epinephrine 1:100,000 injection solution Performing Provider: Thomas Esparza MD Performing Location: [facility] [place] [facility] Administered by: Thomas Esparza MD on 05/25/24 09:45 Dose Route Admin Location Dispensed Lot Number Expiration Date [facility] Crystallography Teacher 10 mL Infiltration 10 mL Assessment & Plan Assessment & Plan (1) Incisional pain: Code(s): L76.82 - Other postprocedural complications of skin and subcutaneous tissue Category: Surgical Plan: At present, the umbilical hernia discomfort will be treated conservatively. Clinically and CT scan negative for recurrence. Patient will be seen periodically to see if the process progresses. Patient was been given local instructions were wearing of the right hip lesion including bacitracin each day and dry sterile dressing. We will see me in 1 week's time follow up regarding this. All questions answered. Patient will see me as directed or p.r.n.. (2) Abnormal skin growth: Code(s): D49.2 - Neoplasm of unspecified behavior of bone, soft tissue, and skin Category: Surgical Plan: See above Orders: Orders AMB Excision Today D49.2 - Neoplasm of unspecified behavior of bone, soft tissue, and skin, L76.82 - Other postprocedural complications of skin and subcutaneous tissue Medications: New lidocaine-epinephrine 1 %-1:100,000 10 mL Infiltration ONCE 30 mL 0RF D49.2 - Neoplasm of unspecified behavior of bone, soft tissue, and skin, L76.82 - Other postprocedural complications of skin and subcutaneous tissue Coding Level of Care Code New Pt Level 5 (63200) Diagnoses Incisional pain L76.82 Abnormal skin growth D49.2 CPT Codes Trunk/Arms/Legs - CPT: 97045-zcbsj/arms/legs 2.1-3cm ([id number])
[2024-05-25 09:21] VITALS: BP 124/86; PULSE 97; BMI 42.0
== END 2024-05-25 09:43 | disposition home or self-care (01) ==
PROVIDERS: PCP Family Medicine; Visit Provider Surgery
DX: L76.82 Other postprocedural complications of skin and subcutaneous tissue (principal); D04.9 Carcinoma in situ of skin, unspecified
CPT/HCPCS: 11642; 99214

== ENCOUNTER 2024-05-25 09:13 | Outpatient (REF) | payer OTHER, SELFPAY | END 2024-05-25 09:14 | disposition home or self-care (01) | LOC: HO.LNP 09:13 | PROVIDERS: PCP Family Medicine; Visit Provider Surgery | DX: D48.9 Neoplasm of uncertain behavior, unspecified (principal); Z98.890 Other specified postprocedural states | CPT/HCPCS: 11642; 88304; 88305 ==